=== PATIENT | male | born 1950 | race Caucasian/White ===

== ENCOUNTER → 2017-07-28 08:21 | Outpatient (CLI) | payer BC, MEDICARE, SELFPAY ==
[2017-07-28 10:17] LABS: Absolute Lymphocyte Count 2.39 X10^3/ul (0.83-4.51); Absolute Neutrophil Count 2.7 X10^3/uL (2.0-7.7); Basophil# 0.02 X10^3/uL; Basophil% 0.3 % (0-1); Eosinophil# 0.26 X10^3/uL; Eosinophils% 4.3 % (0-5); Hematocrit 42.8 % (40-54); Hemoglobin 14.4 g/dl (13.0-16.5); Lymphocyte # 2.39 X10^3/ul (4.0); Mean Corp Hgb Conc 33.6 g/gl (32-36); Mean Corpuscular Hgb 29.8 pg (27.0-32.0); Mean Corpuscular Volume 88.4 fL (80-94); Mean Platelet Vol. 10.3 fl (6.2-12.0); Monocyte# 0.57 X10^3/uL; Monocyte% 9.5 % (0-10); Neutrophil # 2.73 X10^3/uL (2.7-7.7); Neutrophil % 45.7 % (47-70); Platelet Count 233 K/mm3 (150-450); RBC Distribution Width CV 13.1 % (11.6-14.6); RBC Distribution Width SD 42.1 fl (35.1-43.9); Red Blood Count 4.84 M/mm3 (4.6-6.2)
[2017-07-28 10:23] LABS: POSITIVE COUNT NO; POSITIVE DIFFERENTIAL NO; POSITIVE MORPHOLOGY NO
[2017-07-28 10:42] LABS: AST(SGOT) 27 U/L (15-37); Alanine Aminotransfer ALT/SGPT 38 U/L (16-61); Albumin, Serum 3.7 g/dL (3.2-5.0); Alkaline Phosphatase 131 U/L (45-117); Anion Gap 9 (5-15); BUN 22 mg/dL (7-18); BUN/Creat Ratio 15.4 RATIO (10-20); Bilirubin, Direct 0.07 mg/dL (0.00-0.30); Calcium,Total 8.4 mg/dL (8.5-10.1); Chloride 101 mmol/L (98-107); Cholesterol 195 mg/dL (200); Creatinine, Serum 1.43 mg/dL (0.70-1.30); EST Glomerular Filtration Rate 53 mL/min (>60); Est Glom Filt Rate - Afr Amer 64 mL/min (>60); Globulin 4.1 g/dL (2.2-4.2); Glucose 303 mg/dL (74-106); High Density Lipoprotein 33 mg/dL; Protein, Total 7.8 g/dL (6.4-8.2); Sodium Level 137 mmol/L (136-145); Triglycerides 509 mg/dL
[2017-07-28 10:59] LABS: Microalbumin,Random Urine 57.8 mg/L (NO RANGE EST.); Microalbumin:Creatinine Ratio 108.2 mg/g CRE (<30 mg/g CRE)
[2017-07-28 11:00] LABS: Hemoglobin A1c 8.1 % (4.2-6.3)
== END ==
PROVIDERS: Family Provider Family Medicine; PCP Family Medicine; Visit Provider Family Medicine
DX: I10 Essential (primary) hypertension (principal); E11.9 Type 2 diabetes mellitus without complications; Z94.4 Liver transplant status
CPT/HCPCS: 36415; 80048; 80061; 80076; 82043; 82570; 83036; 85025

== ENCOUNTER → 2017-07-30 09:17 | Outpatient (CLI) | payer BC, MEDICARE, SELFPAY ==
--- NOTE | 2017-07-30 09:22 | RAD_ITS ---
STUDY: X-RAY CHEST REASON FOR EXAM: Male, 66 years old. History of prior liver transplant. TECHNIQUE: PA and lateral views of the chest. COMPARISON: None. FINDINGS: Gynecomastia. The lungs are clear and expanded. Scattered calcified granuloma. There is no demonstrated pleural abnormality. Normal size heart. Normal mediastinum and anil. Normal visualized pulmonary arteries. There is atherosclerotic calcification of the aortic arch with tortuosity. There are degenerative changes of the visualized thoracic spine. Normal visualized ribs, clavicles, and shoulders. There is no demonstrated abnormality of the visualized soft tissue structures of the upper abdomen. RAD/Chest PA and Lateral IMPRESSION: No acute abnormality is seen. Electronically Signed: Kevin Gonzalez MD at 12:59 EDT Tel [phone], Service support ,
== END ==
PROVIDERS: Family Provider Family Medicine; PCP Family Medicine; Visit Provider Family Medicine
DX: Z94.4 Liver transplant status (principal)
CPT/HCPCS: 71046

== ENCOUNTER → 2018-02-01 08:48 | Outpatient (CLI) | payer MEDICARE, SELFPAY ==
[2018-02-01 10:48] LABS: Hemoglobin A1c 8.4 % (4.2-6.3)
[2018-02-01 10:58] LABS: Microalbumin:Creatinine Ratio 142.7 mg/g CRE (<30 mg/g CRE)
[2018-02-01 11:00] LABS: AST(SGOT) 35 U/L (15-37); Alanine Aminotransfer ALT/SGPT 51 U/L (16-61); Albumin, Serum 3.6 g/dL (3.2-5.0); Alkaline Phosphatase 110 U/L (45-117); Anion Gap 10 (5-15); BUN 21 mg/dL (7-18); BUN/Creat Ratio 14.7 RATIO (10-20); Bilirubin, Direct 0.08 mg/dL (0.00-0.30); Calcium,Total 8.2 mg/dL (8.5-10.1); Chloride 104 mmol/L (98-107); Cholesterol 167 mg/dL (200); Creatinine, Serum 1.43 mg/dL (0.70-1.30); EST Glomerular Filtration Rate 53 mL/min (>60); Est Glom Filt Rate - Afr Amer 64 mL/min (>60); Globulin 3.8 g/dL (2.2-4.2); Glucose 290 mg/dL (74-106); High Density Lipoprotein 33 mg/dL; Potassium 4.9 mmol/L (3.5-5.1); Protein, Total 7.4 g/dL (6.4-8.2); Sodium Level 138 mmol/L (136-145); Triglycerides 470 mg/dL
--- OUTSIDE RECORDS SUMMARY | 2018-03-27 10:59 | XMS RPT_ITS ---
:1950 Author Organization [facility] Care Team Providers Name Role Phone VICKY CARBAJAL (HOME MORTGAGE DISCLOSURE ACT SPECIALIST) Attending Unavailable BORIS HERNANDEZ Referring Unavailable NAYE OMER, DR. REMY Mcneil Primary Care Unavailable NAYE OMER, DR. 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 Community / Z94.4(ICD-10) Hospital Repository 08/13/2017 Unknown I10 - Essential Remy Mallory (primary) Community hypertension / Hospital I10(ICD-10) Repository PROCEDURES PROCEDURES No Procedure Records FoundRESULTS RESULTS HEMOGLOBIN A1C Collected: 02/01/2018 Status: F Source: [place] 8:55 AM [facility] REPOSITORY TYPE CODE TESTS RESULT OUT OF RANGE REFERENCE UNITS LAB L501.9985 4.2-6.3 % High HGB A1C 8.4 Performed By: #### L501.9985 #### [facility] [address] [place], [address] MICROALB:CREAT Collected: 02/01/2018 Status: F Source: GIO RATIO,RANDOM UR 8:55 AM [facility] REPOSITORY TYPE CODE TESTS RESULT OUT OF RANGE REFERENCE UNITS LAB L501.1200 NO RANGE EST. mg/dL Normal UR CREAT 75.70 LAB L502.0500 NO RANGE EST. mg/L Normal 108.0 MICROALBUMIN ,UR LAB L502.0600 <30 mg/g CRE mg/g CRE High 142.7 MALB:CREAT Performed By: #### L502.0250 #### [facility] [address] [place], [address] BASIC METABOLIC Collected: 02/01/2018 Status: F Source: GIO PROFILE (BMP) 8:55 AM [facility] REPOSITORY TYPE CODE TESTS RESULT OUT OF RANGE REFERENCE UNITS LAB L501.0100 74-106 mg/dL High GLU 290 Result Comment: Glucose result greater than or equal to 200 mg/dL suggests DIABETES MELLITUS per A.D.A. criteria. Please note revised GLUCOSE reference range effective 2017. LAB L501.1000 7-18 mg/dL High BUN 21 LAB L501.1100 0.70-1.30 mg/dL High CREAT,SERUM 1.43 Result Comment: The validity of the calculated GFR AND GFRAA in patients over 70 years has not been determined. Clinical correlation is essential. LAB L501.1110 >60 mL/min Low EST GFR 53 Result Comment: Non- GFR Calc LAB L501.1115 >60 mL/min Normal EST GFR - AA 64 Result Comment: GFR Calc LAB L501.1300 10-20 RATIO Normal BUN/CRE 14.7 LAB L501.2200 8.5-10.1 mg/dL Low CA 8.2 LAB L501.5300 136-145 mmol/L NA Normal 138 LAB L501.5600 3.5-5.1 mmol/L K Normal 4.9 LAB L501.5900 98-107 mmol/L CL Normal 104 LAB L501.6100 21.0-32.0 mmol/L Normal CO2 24.0 LAB L501.6200 5-15 Normal GAP 10 Performed By: #### L500.2500, L500.3400, L500.4100 #### [facility] [address] [place], [place], [address] LIVER PROFILE Collected: 02/01/2018 Status: F Source: [place] 8:55 AM [facility] REPOSITORY TYPE CODE TESTS RESULT OUT OF RANGE REFERENCE UNITS LAB L501.1500 6.4-8.2 g/dL Normal T PROT 7.4 LAB L501.1800 3.2-5.0 g/dL Normal ALB 3.6 LAB L501.1950 2.2-4.2 g/dL Normal GLOB 3.8 LAB L501.4100 15-37 U/L Normal AST 35 LAB L501.4305 45-117 U/L Normal ALK P 110 LAB L501.4405 16-61 U/L Normal ALT 51 LAB L501.4600 0.20-1.00 mg/dL Normal T BILI 0.30 LAB L501.4700 0.00-0.30 mg/dL Normal D BILI 0.08 Performed By: #### L500.2500, L500.3400, L500.4100 #### [facility] [address] [facility] [place], [address] LIPID PROFILE Collected: 02/01/2018 Status: F Source: [place] 8:55 AM [facility] REPOSITORY TYPE CODE TESTS RESULT OUT OF RANGE REFERENCE UNITS LAB L501.4900 200 mg/dL Normal CHOL 167 Result Comment: <200 mg/dL Desirable 200-240 mg/dL Borderline >240 mg/dL High Risk LAB L501.5000 mg/dL High TRIG 470 Result Comment: The drugs N-Acetylcysteine and Metamizole may falsely depress this assay. TRIGLYCERIDE IS GREATER THAN 400 mg/dL. LDL RESULT IS INVALID AND WILL NOT BE REPORTED. Serum Triglycerides Reference Interval Normal <150 mg/dL Borderline high 150 - 199 mg/dL High 200 - 499 mg/dL Very High > or = 500 mg/dL LAB L501.6400 mg/dL Low HDL 33 Result Comment: The drugs N-Acetylcysteine and Metamizole may falsely depress this assay. Reference Range HDL <40 mg/dL Low HDL Cholesterol HDL >or= 60 mg/dL High HDL Cholesterol LAB L501.6500 0-130 mg/dL Test Normal not performed LDL LAB L501.6600 5-40 mg/dL Test Normal not performed VLDL Performed By: #### L500.2500, L500.3400, L500.4100 #### [facility] [address] [place], [address] PROGRESS Observed: 2017 Status: COMPLETED Source: [place] 11:01 AM [facility] REPOSITORY HNO ID: [id number] Author: Paris Mitchell [facility] Service: (none) Author Type: (none) Type: Progress Notes Filed: 2017 11:02 AM Note Text: I spoke with Alice and he states he doesn't see Dr. Hernandez anymore. Removed Dr. Hernandez as PCP. PROGRESS Observed: 2017 Status: COMPLETED Source: [place] 10:58 AM [facility] REPOSITORY HNO ID: [id number] Author: Paris Mitchell [facility] Service: (none) Author Type: (none) Type: Progress Notes Filed: 2017 11:02 AM Note Text: PHMA TEAMLET DOCUMENTATION Provider Action/FYI: PSR Action/FYI: R/s appointment from 09/17/17 with labs prior - appointment cancellation note states service elsewhere. Patient may not be seeing Dr. Hernandez anymore. Teamlet has identified patient by name and date of . Team: Dr. Oj Perry Older Paris Montejo ? Last Office Visit:Visit date not found ? Next Office Visit: Visit date not found ? Last BP/Labs: Blood Pressure: Last 3 Encounter BP Readings: Date: BP: 03/26/2017 140/88 10/23/2016 142/80 09/19/2016 145/82 Lipids: Cholesterol, Total (mg/dL) Date Value 09/18/2016 183 HDL Cholesterol (mg/dL) Date Value 09/18/2016 35 LDL Cholesterol (mg/dL) Date Value 09/18/2016 78 LDL Chol, Amberson (mg/dL) Date Value 11/23/2009 49 Triglyceride (mg/dL) Date Value 09/18/2016 349 HGB A1C: Lab Results Component Value Date HBA1C 7.8 09/18/2016 HBA1C 5.9 04/02/2010 HBA1C 6.9 11/23/2009 HBA1C 7.5 12/01/2007 TSH: No results found for: TSH) Care Gap: CKD DM HTN - Last BP NOT under 140/90 Plan: ? Confirm PCP / Status - active ? Type of appointment needed: Follow-up HTN, DM next available with Provider pcp or palliative senior np ? Consultation Appointments: n/a Labs, HM and Immunization: Health Maintenance Due: BP CONTROLLED (<130/80) due on 1970 DTAP,TDAP,TD(1 - Tdap) due on 12/16/1971 COLORECTAL CANCER SCREENING,SEE MODIFIER due on 09/27/2012 HBA1C due on 03/21/2017 - ordered URINE ALBUMIN:CREATININE RATIO due on 09/18/2017 - ordered LDL CHOLESTEROL due on 09/18/2017 - ordered SERUM CREATININE due on 10/24/2017 - ordered INFLUENZA(1) due on 10/31/2017 ADULT PREVNAR-13 due on 2017 PNEUMOVAX AGE 65 AND OVER WITH 5YR LOOKBACK(1) due on 2017 Paris Mitchell Cma CNPTOUTREACH Observed: 2017 Status: COMPLETED Source: [place] 12:00 AM [facility] REPOSITORY Patient Outreach ([facility]) ALICE COHN ([id number]) 1950 M Date Time Provider Department 12/15/17 PARIS MITCHELL) [facility] During your visit today, we recorded the following information about you: Paris Mitchell Cma 2017 11:02 AM Signed PHMA TEAMLET DOCUMENTATION Provider Action/FYI: PSR Action/FYI: R/s appointment from 09/17/17 with labs prior - appointment cancellation note states service elsewhere. Patient may not be seeing Dr. Hernandez anymore. Teamlet has identified patient by name and date of . Team: Dr. Oj Perry Older Paris Montejo ? Last Office Visit:Visit date not found ? Next Office Visit: Visit date not found ? Last BP/Labs: Blood Pressure: Last 3 Encounter BP Readings: Date: BP: 03/26/2017 140/88 10/23/2016 142/80 09/19/2016 145/82 Lipids: Cholesterol, Total (mg/dL) Date Value 09/18/2016 183 HDL Cholesterol (mg/dL) Date Value 09/18/2016 35 LDL Cholesterol (mg/dL) Date Value 09/18/2016 78 LDL Chol, Gio (mg/dL) Date Value 11/23/2009 49 Triglyceride (mg/dL) Date Value 09/18/2016 349 HGB A1C: Lab Results Component Value Date HBA1C 7.8 09/18/2016 HBA1C 5.9 04/02/2010 HBA1C 6.9 11/23/2009 HBA1C 7.5 12/01/2007 TSH: No results found for: TSH) Care Gap: CKD DM HTN - Last BP NOT under 140/90 Plan: ? Confirm PCP / Status - active ? Type of appointment needed: Follow-up HTN, DM next available with Provider pcp or palliative senior np ? Consultation Appointments: n/a Labs, HM and Immunization: Health Maintenance Due: BP CONTROLLED (<130/80) due on 1970 DTAP,TDAP,TD(1 - Tdap) due on 12/16/1971 COLORECTAL CANCER SCREENING,SEE MODIFIER due on 09/27/2012 HBA1C due on 03/21/2017 - ordered URINE ALBUMIN:CREATININE RATIO due on 09/18/2017 - ordered LDL CHOLESTEROL due on 09/18/2017 - ordered SERUM CREATININE due on 10/24/2017 - ordered INFLUENZA(1) due on 10/31/2017 ADULT PREVNAR-13 due on 2017 PNEUMOVAX AGE 65 AND OVER WITH 5YR LOOKBACK(1) due on 2017 Paris Mitchell Tubing Assembler Paris Mitchell Tubing Assembler 2017 11:02 AM Signed I spoke with Alice and he states he doesn't see Dr. Hernandez anymore. Removed Dr. Hernandez as PCP. Allergies As of Date: 2017 (No Known Allergies) Date Reviewed: 03/26/2017 Reviewed by: Jenny Fernandez Tubing Assembler - Fully Assessed Reason for Visit: PHMA/Care Gap Outreach [[id number]] Prescriptions as of 2017 Sig: EASY TOUCH 31 GAUGE X 5/16 N* USE ONE NEEDLE FOR EACH DOSE INSULIN GLARGINE (U-100) 100 * Inject 70 Units subcutaneousl* INSULIN ASPART U-100 100 UNI* Inject 25-30 Units subcutaneo* TACROLIMUS 1 MG CAPSULE Take 1 tablet by mouth every * BLOOD SUGAR DIAGNOSTIC STRIPS Test blood sugar(s) 4x daily.* AMLODIPINE 2.5 MG TABLET Take 1 tablet by mouth once d* KETOCONAZOLE 2 % SHAMPOO Apply 1 application to affect* MAGNESIUM 250 MG TABLET 4 tablets daily CALCIUM 500 MG TABLET 1000 mg tablets twice a day. CHOLECALCIFEROL (VITAMIN D3) * Take one(1) tablet daily. CYANOCOBALAMIN (VIT B-12) 1,0* Take one(1) tablet daily. THERAPEUTIC MULTIVITAMIN TABL* Take one(1) tablet daily. 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] INVALID FOR*10/23/2016 Solar Lentigines [L81.4] INVALID FOR*10/23/2016 Trauma-related and Surgical Scars [L90.5] INVALID FOR*10/23/2016 Seborrheic Keratosis [L82.1] INVALID FOR* Skin Tag Papilloma [L91.8] INVALID FOR*10/23/2016 Actinic Damage//Sun-Damaged Skin: moderate [L57*INVALID FOR* BCC: Basal Cell Carcinoma: Skin Cancer R nose-f*INVALID FOR*10/23/2016 Essential hypertension [I10] INVALID FOR* Encounter Status:Closed by PARIS MITCHELL CMA on 12/15/17 JODI Observed: 09/01/2017 Status: COMPLETED Source: [place] 12:00 AM [facility] REPOSITORY Patient Outreach ([facility]) ALICE COHN ([id number]) 1950 M Date Time Provider Department 09/01/17 [facility] During your visit today, we recorded the following information about you: Allergies As of Date: 09/01/2017 (No Known Allergies) Date Reviewed: 03/26/2017 Reviewed by: Jenny Fernandez [facility] - Fully Assessed Visit Diagnosis:Medication management [Z79.899] Order(s):BASIC METABOLIC PNL [SQBMP] Order #: [id number] FUTURE ALBUMIN/CREAT RATIO RND UR [SQUACR] Order #: [id number] FUTURE LIPID PANEL BASIC [SQLIPB] Order #: [id number] FUTURE Prescriptions as of 09/01/2017 Sig: EASY TOUCH 31 GAUGE X 5/16 N* USE ONE NEEDLE FOR EACH DOSE INSULIN GLARGINE (U-100) 100 * Inject 70 Units subcutaneousl* INSULIN ASPART U-100 100 UNI* Inject 25-30 Units subcutaneo* TACROLIMUS 1 MG CAPSULE Take 1 tablet by mouth every * BLOOD SUGAR DIAGNOSTIC STRIPS Test blood sugar(s) 4x daily.* AMLODIPINE 2.5 MG TABLET Take 1 tablet by mouth once d* KETOCONAZOLE 2 % SHAMPOO Apply 1 application to affect* MAGNESIUM 250 MG TABLET 4 tablets daily CALCIUM 500 MG TABLET 1000 mg tablets twice a day. CHOLECALCIFEROL (VITAMIN D3) * Take one(1) tablet daily. CYANOCOBALAMIN (VIT B-12) 1,0* Take one(1) tablet daily. THERAPEUTIC MULTIVITAMIN TABL* Take one(1) tablet daily. 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] INVALID FOR*10/23/2016 Solar Lentigines [L81.4] INVALID FOR*10/23/2016 Trauma-related and Surgical Scars [L90.5] INVALID FOR*10/23/2016 Seborrheic Keratosis [L82.1] INVALID FOR* Skin Tag Papilloma [L91.8] INVALID FOR*10/23/2016 Actinic Damage//Sun-Damaged Skin: moderate [L57*INVALID FOR* BCC: Basal Cell Carcinoma: Skin Cancer R nose-f*INVALID FOR*10/23/2016 Essential hypertension [I10] INVALID FOR* Encounter Status:Closed by CARMEN, PRODUSER on 12/11/17 US ABDOMEN/ABDOMEN DOPPLER Observed: 08/13/2017 Status: F Source: [place] 8:00 AM [facility] REPOSITORY ORIGINAL US ABDOMEN/ABDOMEN DOPPLER CLINICAL INDICATION:HX LIVER TRANSPLANT COMPARISON: None TECHNIQUE: Abel scale, color doppler and spectral wave analysis was performed of the liver. FINDINGS: The liver is normal in size and echogenicity. No focal lesions are seen. There is no intra or extrahepatic bile duct dilatation. The common duct is 9 mm at the allyson hepatis. The gallbladder is been surgically removed. The visualized pancreas is normal in size and echogenicity. No ascites is seen in the Adams's pouch. The kidneys do not demonstrate pelvocaliectasis. There is an anechoic structure within the cortex of the LEFT kidney which measures 1.4 x 2.1 x 1.3 cm, likely representing a simple cyst. VASCULAR: SV: Patent MPV: Patent, normal direction of flow RPV: Patent, normal directional flow LPV: Patent, normal directional flow SNOW: Patent, normal directional flow RHV: Patent with normal waveforms MHV: Patent with normal waveforms LHV: Patent with normal waveforms IMPRESSION: 1. Normal ultrasound and Doppler imaging findings of a transplanted liver. Interpreted By: Kallie Tavarez MD Preliminary Report By: Kallie Tavarez MD Electronically Signed By: Kallie Tavarez MD Dictated Date: 08/13/2017 10:16:25 AM Prelim Date: 08/13/2017 10:16:25 AM Sign Date: 08/13/2017 11:42:02 AM CHEST PA AND LATERAL Observed: 07/30/2017 Status: F Source: GIO 9:22 AM [facility] REPOSITORY [facility] Imaging Services [address] [place] [address] Chest PA and Lateral MR#: [id number] Acct: [id number] Name: ALICE COHN Rep #: [id number] : 1950 M 66 From: Kevin Gonzalez MD PCP: Remy Mallory MD Status: REG CLI Study: Chest PA and Lateral Date of Exam: 07/30/17 Exam# [id number] Ordering Dr: Remy Mallory MD STUDY: X-RAY CHEST REASON FOR EXAM: Male, 66 years old. History of prior liver transplant. TECHNIQUE: PA and lateral views of the chest. COMPARISON: None. FINDINGS: Gynecomastia. The lungs are clear and expanded. Scattered calcified granuloma. There is no demonstrated pleural abnormality. Normal size heart. Normal mediastinum and anil. Normal visualized pulmonary arteries. There is atherosclerotic calcification of the aortic arch with tortuosity. There are degenerative changes of the visualized thoracic spine. Normal visualized ribs, clavicles, and shoulders. There is no demonstrated abnormality of the visualized soft tissue structures of the upper abdomen. RAD/Chest PA and Lateral IMPRESSION: No acute abnormality is seen. Electronically Signed: Kevin Gonzalez MD at 12:59 EDT Tel [phone], Service support , CC: Remy Mallory MD Bar Welder: Signed CBC W/DIFF, AUTOMATED Collected: 07/28/2017 Status: F Source: GIO 8:35 AM [facility] REPOSITORY TYPE CODE TESTS RESULT OUT OF RANGE REFERENCE UNITS LAB L100.1000 4.4-11.0 K/mm3 Normal WBC 6.0 LAB L100.1200 4.6-6.2 M/mm3 Normal RBC 4.84 LAB L100.1300 13.0-16.5 g/dl Normal HGB 14.4 LAB L100.1400 40-54 % Normal HCT 42.8 LAB L100.1500 80-94 fL Normal MCV 88.4 LAB L100.1600 27.0-32.0 pg Normal MCH 29.8 LAB L100.1700 32-36 g/gl Normal MCHC 33.6 LAB L100.1810 11.6-14.6 % Normal RDW CV 13.1 LAB L100.1820 35.1-43.9 fl Normal RDW SD 42.1 LAB L100.1900 150-450 K/mm3 Normal PLT 233 LAB L100.2000 6.2-12.0 fl Normal MPV 10.3 LAB L100.2100 47-70 % Low NEUT% 45.7 LAB L100.2200 19-41 % Normal LY% 40.0 LAB L100.2300 0-10 % Normal MONO% 9.5 LAB L100.2400 0-5 % Normal EO% 4.3 LAB L100.2500 0-1 % Normal BASO% 0.3 LAB L100.2550 0.0-0.9 % Normal IM GRAN % 0.200 Result Comment: IG% - Immature Granulocytes (promyelocytes, myelocytes and metamyelocytes) > 1% indicates that a LEFT SHIFT is Present. LAB L100.2620 2.0-7.7 X10 3/uL Normal Absolute Neut 2.7 LAB L100.2720 0.83-4.51 X10 3/ul Normal Absolute Lymph 2.39 Performed By: #### L100.0100 #### [facility] [address] [place], [place], [address] BASIC METABOLIC Collected: 07/28/2017 Status: F Source: GIO PROFILE ([facility]) 8:35 AM [facility] REPOSITORY TYPE CODE TESTS RESULT OUT OF RANGE REFERENCE UNITS LAB L501.0100 74-106 mg/dL High GLU 303 Result Comment: Glucose result greater than or equal to 200 mg/dL suggests DIABETES MELLITUS per A.D.A. criteria. Please note revised GLUCOSE reference range effective 2017. LAB L501.1000 7-18 mg/dL High BUN 22 LAB L501.1100 0.70-1.30 mg/dL High CREAT,SERUM 1.43 Result Comment: The validity of the calculated GFR AND GFRAA in patients over 70 years has not been determined. Clinical correlation is essential. LAB L501.1110 >60 mL/min Low EST GFR 53 Result Comment: Non- GFR Calc LAB L501.1115 >60 mL/min Normal EST GFR - AA 64 Result Comment: GFR Calc LAB L501.1300 10-20 RATIO Normal BUN/CRE 15.4 LAB L501.2200 8.5-10.1 mg/dL Low CA 8.4 LAB L501.5300 136-145 mmol/L NA Normal 137 LAB L501.5600 3.5-5.1 mmol/L K Normal 5.0 LAB L501.5900 98-107 mmol/L CL Normal 101 LAB L501.6100 21.0-32.0 mmol/L Normal CO2 27.0 LAB L501.6200 5-15 Normal GAP 9 Performed By: #### L500.2500, L500.3400, L500.4100 #### [facility] [address] [place], [place], [address] LIVER PROFILE Collected: 07/28/2017 Status: F Source: [place] 8:35 AM [facility] REPOSITORY TYPE CODE TESTS RESULT OUT OF RANGE REFERENCE UNITS LAB L501.1500 6.4-8.2 g/dL Normal T PROT 7.8 LAB L501.1800 3.2-5.0 g/dL Normal ALB 3.7 LAB L501.1950 2.2-4.2 g/dL Normal GLOB 4.1 LAB L501.4100 15-37 U/L Normal AST 27 LAB L501.4305 45-117 U/L High ALK P 131 LAB L501.4405 16-61 U/L Normal ALT 38 LAB L501.4600 0.20-1.00 mg/dL Normal T BILI 0.30 LAB L501.4700 0.00-0.30 mg/dL Normal D BILI 0.07 Performed By: #### L500.2500, L500.3400, L500.4100 #### [facility] [address] [place], [place], [id number] LIPID PROFILE Collected: 07/28/2017 Status: F Source: [place] 8:35 AM [facility] REPOSITORY TYPE CODE TESTS RESULT OUT OF RANGE REFERENCE UNITS LAB L501.4900 200 mg/dL Normal CHOL 195 Result Comment: <200 mg/dL Desirable 200-240 mg/dL Borderline >240 mg/dL High Risk LAB L501.5000 mg/dL High TRIG 509 Result Comment: The drugs N-Acetylcysteine and Metamizole may falsely depress this assay. TRIGLYCERIDE IS GREATER THAN 400 mg/dL. LDL RESULT IS INVALID AND WILL NOT BE REPORTED. Serum Triglycerides Reference Interval Normal <150 mg/dL Borderline high 150 - 199 mg/dL High 200 - 499 mg/dL Very High > or = 500 mg/dL LAB L501.6400 mg/dL Low HDL 33 Result Comment: The drugs N-Acetylcysteine and Metamizole may falsely depress this assay. Reference Range HDL <40 mg/dL Low HDL Cholesterol HDL >or= 60 mg/dL High HDL Cholesterol LAB L501.6500 0-130 mg/dL Test Normal not performed LDL LAB L501.6600 5-40 mg/dL Test Normal not performed VLDL Performed By: #### L500.2500, L500.3400, L500.4100 #### [facility] [address] [place], [place], [id number] MICROALB:CREAT Collected: 07/28/2017 Status: F Source: GIO RATIO,RANDOM UR 8:35 AM [facility] REPOSITORY TYPE CODE TESTS RESULT OUT OF RANGE REFERENCE UNITS LAB L501.1200 NO RANGE EST. mg/dL Normal UR CREAT 53.40 LAB L502.0500 NO RANGE EST. mg/L Normal 57.8 MICROALBUMIN ,UR LAB L502.0600 <30 mg/g CRE mg/g CRE High 108.2 MALB:CREAT Performed By: #### L502.0250 #### [facility] [address] [place], [address] HEMOGLOBIN A1C Collected: 07/28/2017 Status: F Source: [place] 8:35 AM [facility] REPOSITORY TYPE CODE TESTS RESULT OUT OF RANGE REFERENCE UNITS LAB L501.9985 4.2-6.3 % High HGB A1C 8.1 Performed By: #### L501.9985 #### [facility] [address] [place], [address] PROGRESS Observed: 03/26/2017 Status: COMPLETED Source: [place] 10:59 AM [facility] REPOSITORY HNO ID: [id number] Author: Vicky Rousseau) Older Service: (none) Author Type: Nurse Practitioner Type: Progress Notes Filed: 03/26/2017 10:59 AM Note Text: CC: Patient presents with: Imm/Inj: Flu Vaccine HPI Alice Cohn is a 66 year old male who presents today for 3 month follow up and medication refills. DIABETES MELLITUS: Mr. Cohn was last seen 09/2016. Since our last visit he denies excessive thirst or increased frequency of urination, chest pain or dyspnea , numbness, tingling or pain in extremities, new or unusual visual symptoms, low sugar/hypoglycemic reactions, weight loss/gain, lightheadedness/dizziness and bowel changes/loose stools. Patient admits to have low sugar/hypoglycemic reactions once about a month ago. Follows a diabetic diet some of the time. He is compliant with medication(s) and is tolerating med(s) without any side effects. He reports checking his glucose on a four times a day schedule with sugars in the 160-170 <200 range. 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 HTN: Mr. Cohn indicates that he is feeling well and denies any symptoms referable to elevated blood pressure. Specifically denies headache, chest pain, palpitations, dyspnea and peripheral edema. Patient denies any side effects of his medication(s) and is compliant with their regimen. He does not check BP's generally. Alice likes to exercise by walking daily. He watches his diet for sodium, low fat and low cholesterol some of the time. Last 3 Encounter BP Readings: Date: BP: 03/26/2017 150/100 10/23/2016 142/80 09/19/2016 145/82 REVIEW OF SYSTEMS General: no fevers, no chills, no night sweats, no recurrent infections, no change in appetite, no change in energy and no significant changes in weight HEENT: no frequent or significant headaches, no changes in hearing, no visual changes, no nose bleeds, no sinus or nasal problems Respiratory: no cough, no wheezing, no shortness of breath, no hemoptysis Cardiovascular: no chest pain, no chest pressure, no palpitations and no swelling GI: No nausea, vomiting, or diarrhea Neurologic: No headache, weakness, numbness, tingling, neck stiffness, tremor, vertigo, dizziness, memory loss, syncope. PHYSICAL EXAM BP 150/100 Pulse 73 Temp 36.4 ?C (97.6 ?F) (Temporal Artery) Resp 14 Wt 94.3 kg (207 lb 12.8 oz) SpO2 96% BMI 31.6 kg/m2 General Appearance: well appearing, in no acute distress, alert Pysch: mood and affect broad and appropriate Skin: Skin color, texture, turgor normal for age; No rashes or lesions. Healing abrasion noted to left patrick without signs of infection. Head: normocephalic, atraumatic Eyes: PERRLA, conjunctiva pink and moist, no icterus, sclera white, non-injected Neck: Thyroid normal size and symmetric without palpable nodules, No adenopathy Lungs: Lungs clear to auscultation. No wheezing, rhonchi, rales Heart: RRR without murmur, gallop, or rubs. No ectopy Abdomen: Abdomen soft, non-tender. Bowel sounds normal. No masses, organomegaly Extremities: No deformities, edema, skin discoloration, clubbing or cyanosis. Good capillary refill. DM foot exam: shoes and socks removed, No deformities, ulcers, calluses and sensitive to 10 gm monofilament ADULT PREVNAR-13 due on 12/16/1971 DIABETIC FOOT EXAM due on 08/30/2010 COLORECTAL CANCER SCREENING,SEE MODIFIER due on 09/27/2012 TETANUS due on 03/02/2015 INFLUENZA(1) due on 10/31/2016 HBA1C due on 03/21/2017 URINE ALBUMIN CREATININE RATIO due on 09/18/2017 LDL due on 09/18/2017 DILATED RETINAL EXAM due on 03/03/2018 PROSTATE CANCER SCREENING DISCUSSION Completed HEPATITIS C SCREENING Completed ASSESSMENT/PLAN: 1. 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 - BP goal of <140/90 - HGB A1C 2. Essential hypertension - ICD9: 401.9, ICD10: I10 - good control - Continue current medication(s) - Encouraged dietary sodium restriction/DASH diet - Recommended regular aerobic exercise. - Follow up in 3 months, sooner should new symptoms or problems arise. - Goal of BP <140/90 3. Liver replaced by transplant (HCC) - ICD9: V42.7, ICD10: Z94.4 - Patient establishing care with GI specialist - Maintenance lab work and diagnostic screening up to date - TACROLIMUS 1 MG CAPSULE 4. 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 Potential red flag symptoms discussed with the patient. Reviewed appropriate action plan to take if red flag symptoms occur. Patient agreeable to treatment plan. PROGRESS Observed: 03/26/2017 Status: COMPLETED Source: [place] 8:27 AM [facility] REPOSITORY HNO ID: [id number] Author: Nate Rousseau) Rc Service: (none) Author Type: Nurse Practitioner Type: Progress Notes Filed: 03/26/2017 10:59 AM Note Text: CC: Patient presents with: Imm/Inj: Flu Vaccine HPI Alice Cohn is a 66 year old male who presents today for 3 month follow up and medication refills. DIABETES MELLITUS: Mr. Cohn was last seen 09/2016. Since our last visit he denies excessive thirst or increased frequency of urination, chest pain or dyspnea , numbness, tingling or pain in extremities, new or unusual visual symptoms, low sugar/hypoglycemic reactions, weight loss/gain, lightheadedness/dizziness and bowel changes/loose stools. Patient admits to have low sugar/hypoglycemic reactions once about a month ago. Follows a diabetic diet some of the time. He is compliant with medication(s) and is tolerating med(s) without any side effects. He reports checking his glucose on a four times a day schedule with sugars in the 160-170 <200 range. 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 HTN: Mr. Cohn indicates that he is feeling well and denies any symptoms referable to elevated blood pressure. Specifically denies headache, chest pain, palpitations, dyspnea and peripheral edema. Patient denies any side effects of his medication(s) and is compliant with their regimen. He does not check BP's generally. Alice likes to exercise by walking daily. He watches his diet for sodium, low fat and low cholesterol some of the time. Last 3 Encounter BP Readings: Date: BP: 03/26/2017 150/100 10/23/2016 142/80 09/19/2016 145/82 REVIEW OF SYSTEMS General: no fevers, no chills, no night sweats, no recurrent infections, no change in appetite, no change in energy and no significant changes in weight HEENT: no frequent or significant headaches, no changes in hearing, no visual changes, no nose bleeds, no sinus or nasal problems Respiratory: no cough, no wheezing, no shortness of breath, no hemoptysis Cardiovascular: no chest pain, no chest pressure, no palpitations and no swelling GI: No nausea, vomiting, or diarrhea Neurologic: No headache, weakness, numbness, tingling, neck stiffness, tremor, vertigo, dizziness, memory loss, syncope. PAST MEDICAL HISTORY Diagnosis Date - ANXIETY STATE NOS 12/01/2007 - BCC: Basal Cell Carcinoma: Skin Cancer R nose-face 01/26/2010 - Chronic hepatitis C without mention of hepatic coma 03/02/1989 IF,Rib x 3 in the past. s/p Harvoni 2014 - Chronic tension headaches 08/30/2009 - Cirrhosis of liver without mention of alcohol 03/02/1989 - CKD (chronic kidney disease) 08/30/2009 Dr. Robertson. - Colon polyp 09/28/2007 - Osteopenia 08/30/2009 - Personal history of colonic polyps 08/30/2009 - Type II or unspecified type diabetes mellitus without mention of complication, uncontrolled 03/02/2004 PAST SURGICAL HISTORY Procedure Laterality Date - APPENDECTOMY 1964 - COLONOSCOP W/ OR W/O [facility] SPEC August Colonoscopy - COLONOSCOPY 2013 no record from [place] - PAST SURGICAL HISTORY OF 1965 ORIF Mandibular fractures - TRANSPLANT LIVER ORTHOTOPIC 07/17/2005 Hepatitis C ALLERGIES Review of patient's allergies indicates no known allergies. MEDICATIONS tacrolimus (PROGRAF) 1 mg capsule Take 1 tablet by mouth every morning and take 1 tablet by mouth every evening amLODIPine (NORVASC) 2.5 mg tablet Take 1 tablet by mouth once daily. insulin aspart (NOVOLOG FLEXPEN) 100 unit/mL inpn Inject 25- 30 Units subcutaneously three times daily with meals. 10-12 units at bedtime for glucose >180. insulin glargine (LANTUS SOLOSTAR) 100 unit/mL (3 mL) inpn Inject 60 Units subcutaneously daily at bedtime. insulin needles, DISPOSABLE, (PEN NEEDLE) 31 gauge x 5/16 ndle USE ONE NEEDLE FOR EACH DOSE ketoconazole (NIZORAL) 2 % shampoo Apply 1 application to affected area twice a week. MAGNESIUM 250 MG TAB 4 tablets daily CALCIUM 500 MG TAB 1000 mg tablets twice a day. CHOLECALCIFEROL (VITAMIN D3) 400 UNIT TAB Take one(1) tablet daily. CYANOCOBALAMIN 1,000 MCG TAB Take one(1) tablet daily. THERAPEUTIC MULTIVITAMIN TAB Take one(1) tablet daily. blood sugar diagnostic (ONETOUCH ULTRA TEST) test strip Test blood sugars 4 times daily. 250.02 FAMILY HISTORY Problem Relation Age of Onset - Cancer Paternal Aunt - Diabetes Paternal Uncle - Cancer Mother skin cancer - None Father adopted - None Brother - None Brother - None Brother Social History Substance Use Topics - Smoking status: Former Smoker Packs/day: 1.50 Years: 10.00 Types: Cigarettes Quit date: 03/02/1989 - Smokeless tobacco: Never Used - Alcohol use No PHYSICAL EXAM BP 150/100 Pulse 73 Temp 36.4 ?C (97.6 ?F) (Temporal Artery) Resp 14 Wt 94.3 kg (207 lb 12.8 oz) SpO2 96% BMI 31.6 kg/m2 General Appearance: well appearing, in no acute distress, alert Pysch: mood and affect broad and appropriate Skin: Skin color, texture, turgor normal for age; No rashes or lesions. Healing abrasion noted to left patrick without signs of infection. Head: normocephalic, atraumatic Eyes: PERRLA, conjunctiva pink and moist, no icterus, sclera white, non-injected Neck: Thyroid normal size and symmetric without palpable nodules, No adenopathy Lungs: Lungs clear to auscultation. No wheezing, rhonchi, rales Heart: RRR without murmur, gallop, or rubs. No ectopy Abdomen: Abdomen soft, non-tender. Bowel sounds normal. No masses, organomegaly Extremities: No deformities, edema, skin discoloration, clubbing or cyanosis. Good capillary refill. DM foot exam: shoes and socks removed, No deformities, ulcers, calluses and sensitive to 10 gm monofilament ADULT PREVNAR-13 due on 12/16/1971 DIABETIC FOOT EXAM due on 08/30/2010 COLORECTAL CANCER SCREENING,SEE MODIFIER due on 09/27/2012 TETANUS due on 03/02/2015 INFLUENZA(1) due on 10/31/2016 HBA1C due on 03/21/2017 URINE ALBUMIN CREATININE RATIO due on 09/18/2017 LDL due on 09/18/2017 DILATED RETINAL EXAM due on 03/03/2018 PROSTATE CANCER SCREENING DISCUSSION Completed HEPATITIS C SCREENING Completed ASSESSMENT/PLAN: 1. 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 - BP goal of <140/90 - HGB A1C 2. Essential hypertension - ICD9: 401.9, ICD10: I10 - good control - Continue current medication(s) - Encouraged dietary sodium restriction/DASH diet - Recommended regular aerobic exercise. - Follow up in 3 months, sooner should new symptoms or problems arise. - Goal of BP <140/90 3. Liver replaced by transplant (HCC) - ICD9: V42.7, ICD10: Z94.4 - Patient establishing care with GI specialist - Maintenance lab work and diagnostic screening up to date - TACROLIMUS 1 MG CAPSULE 4. Need for vaccination - ICD9: V05.9, ICD10: Z23 - INFLUENZA VACCINE QUADRIVALENT AGE 3 YRS PLUS + IM Prescription instructions reviewed with patient as applicable. Potential red flag symptoms discussed with the patient. Reviewed appropriate action plan to take if red flag symptoms occur. Patient agreeable to treatment plan. Nate Tatum CNP PROGRESS Observed: 03/26/2017 Status: COMPLETED Source: [place] 8:23 AM [facility] REPOSITORY O ID: [id number] Author: Jenny Fernandez Cma Service: (none) Author Type: (none) Type: Progress Notes Filed: 03/26/2017 10:59 AM Note Text: 66 year old male here for INACTIVATED INFLUENZA VACCINE. [id number] Season Patient is identified by name and date of : Yes [] CONTRAINDICATIONS color enhanced section Age less than 6 months? No Allergy to eggs, chicken, chicken feathers, or chicken dander? No Allergy to thimerosal (a preservative) or formaldehyde? No History of severe reaction to any vaccine component or a previous dose of influenza vaccination? No History of Guillain-Kittrell Syndrome within 6 weeks after a previous influenza vaccine? No Current moderate or severe illness? No Current temperature greater or equal to 100.4F? No History of Bone Marrow Transplant in past 6 months or solid organ transplant in the past 3 months ? No [] VERIFICATION color enhanced section Was the answer Yes for any of the above contraindications? No contraindications present. Acceptable to proceed with vaccine. Patient/guardian agrees the above answers are true to the best of their knowledge? Yes Flu vaccine information sheet given? Yes See immunization activity in [facility] for details of immunizations adminstered today. Patient age: [age] year old For The [id number] Flu Season 6-35 months old: Fluzone 0.25 ml - IM (Preservative Free) 3 years of age: Fluzone 0.5 ml - IM (Preservative Free) 3 years and older: Fluzone 0.5 ml- IM-(with Preservatives) 65+ years old: Fluzone High-Dose 0.5 ml - IM (Preservative Free) REMEMBER: If patient is less than 9 years of age and this is the first vaccine of Influenza to be received in any flu season, they should receive a second dose in one months time. CNOV Observed: 03/26/2017 Status: COMPLETED Source: [place] 8:20 AM [facility] REPOSITORY Office Visit (INTMWS) ALICE COHN ([id number]) 1950 M Date Time Provider Department 03/26/17 8:20 AM VICKY CARBAJAL) INTMWS During your visit today, we recorded the following information about you: Temperature Pulse Respiration Blood pressure 97.6 degrees 73/minute 14/minute 140/88 Weight 94.3 kg Jenny Fernandez Tubing Assembler 03/26/2017 10:59 AM Signed 66 year old male here for INACTIVATED INFLUENZA VACCINE. Season Patient is identified by name and date of : Yes [] CONTRAINDICATIONS color enhanced section Age less than 6 months? No Allergy to eggs, chicken, chicken feathers, or chicken dander? No Allergy to thimerosal (a preservative) or formaldehyde? No History of severe reaction to any vaccine component or a previous dose of influenza vaccination? No History of Guillain-Kittrell Syndrome within 6 weeks after a previous influenza vaccine? No Current moderate or severe illness? No Current temperature greater or equal to 100.4F? No History of Bone Marrow Transplant in past 6 months or solid organ transplant in the past 3 months ? No [] VERIFICATION color enhanced section Was the answer ANDquot;YesANDquot; for any of the above contraindications? No contraindications present. Acceptable to proceed with vaccine. Patient/guardian agrees the above answers are true to the best of their knowledge? Yes Flu vaccine information sheet given? Yes See immunization activity in [facility] for details of immunizations adminstered today. Patient age: [age] year old For The Flu Season 6-35 months old: Fluzone 0.25 ml - IM (Preservative Free) 3 years of age: Fluzone 0.5 ml - IM (Preservative Free) 3 years and older: Fluzone 0.5 ml- IM-(with Preservatives) 65+ years old: Fluzone High-Dose 0.5 ml - IM (Preservative Free) REMEMBER: If patient is less than 9 years of age and this is the first vaccine of Influenza to be received in any flu season, they should receive a second dose in one months time. Nate Tatum CNP 03/26/2017 9:12 AM Signed CC: Patient presents with: Imm/Inj: Flu Vaccine HPI Alice Cohn is a 66 year old male who presents today for 3 month follow up and medication refills. DIABETES MELLITUS: Mr. Cohn was last seen 09/2016. Since our last visit he denies excessive thirst or increased frequency of urination, chest pain or dyspnea , numbness, tingling or pain in extremities, new or unusual visual symptoms, low sugar/hypoglycemic reactions, weight loss/gain, lightheadedness/dizziness and bowel changes/loose stools. Patient admits to have low sugar/hypoglycemic reactions once about a month ago. Follows a diabetic diet some of the time. He is compliant with medication(s) and is tolerating med(s) without any side effects. He reports checking his glucose on a four times a day schedule with sugars in the 160-170 ANDlt;200 range. 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 HTN: Mr. Cohn indicates that he is feeling well and denies any symptoms referable to elevated blood pressure. Specifically denies headache, chest pain, palpitations, dyspnea and peripheral edema. Patient denies any side effects of his medication(s) and is compliant with their regimen. He does not check BP's generally. Alice likes to exercise by walking daily. He watches his diet for sodium, low fat and low cholesterol some of the time. Last 3 Encounter BP Readings: Date: BP: 03/26/2017 150/100 10/23/2016 142/80 09/19/2016 145/82 REVIEW OF SYSTEMS General: no fevers, no chills, no night sweats, no recurrent infections, no change in appetite, no change in energy and no significant changes in weight HEENT: no frequent or significant headaches, no changes in hearing, no visual changes, no nose bleeds, no sinus or nasal problems Respiratory: no cough, no wheezing, no shortness of breath, no hemoptysis Cardiovascular: no chest pain, no chest pressure, no palpitations and no swelling GI: No nausea, vomiting, or diarrhea Neurologic: No headache, weakness, numbness, tingling, neck stiffness, tremor, vertigo, dizziness, memory loss, syncope. PAST MEDICAL HISTORY Diagnosis Date - ANXIETY STATE NOS 12/01/2007 - BCC: Basal Cell Carcinoma: Skin Cancer R nose-face 01/26/2010 - Chronic hepatitis C without mention of hepatic coma 03/02/1989 IF,Rib x 3 in the past. s/p Harvoni 2014 - Chronic tension headaches 08/30/2009 - Cirrhosis of liver without mention of alcohol 03/02/1989 - CKD (chronic kidney disease) 08/30/2009 Dr. Robertson. - Colon polyp 09/28/2007 - Osteopenia 08/30/2009 - Personal history of colonic polyps 08/30/2009 - Type II or unspecified type diabetes mellitus without mention of complication, uncontrolled 03/02/2004 PAST SURGICAL HISTORY Procedure Laterality Date - APPENDECTOMY 1965 - COLONOSCOP W/ OR W/O [facility] SPEC August Colonoscopy - COLONOSCOPY 2013 no record from [place] - PAST SURGICAL HISTORY OF 1965 ORIF Mandibular fractures - TRANSPLANT LIVER ORTHOTOPIC 07/17/2005 Hepatitis C ALLERGIES Review of patient's allergies indicates no known allergies. MEDICATIONS tacrolimus (PROGRAF) 1 mg capsule Take 1 tablet by mouth every morning and take 1 tablet by mouth every evening amLODIPine (NORVASC) 2.5 mg tablet Take 1 tablet by mouth once daily. insulin aspart (NOVOLOG FLEXPEN) 100 unit/mL inpn Inject 25- 30 Units subcutaneously three times daily with meals. 10-12 units at bedtime for glucose ANDgt;180. insulin glargine (LANTUS SOLOSTAR) 100 unit/mL (3 mL) inpn Inject 60 Units subcutaneously daily at bedtime. insulin needles, DISPOSABLE, (PEN NEEDLE) 31 gauge x 5/16ANDquot; ndle USE ONE NEEDLE FOR EACH DOSE ketoconazole (NIZORAL) 2 % shampoo Apply 1 application to affected area twice a week. MAGNESIUM 250 MG TAB 4 tablets daily CALCIUM 500 MG TAB 1000 mg tablets twice a day. CHOLECALCIFEROL (VITAMIN D3) 400 UNIT TAB Take one(1) tablet daily. CYANOCOBALAMIN 1,000 MCG TAB Take one(1) tablet daily. THERAPEUTIC MULTIVITAMIN TAB Take one(1) tablet daily. blood sugar diagnostic (ONETOUCH ULTRA TEST) test strip Test blood sugars 4 times daily. 250.02 FAMILY HISTORY Problem Relation Age of Onset - Cancer Paternal Aunt - Diabetes Paternal Uncle - Cancer Mother skin cancer - None Father adopted - None Brother - None Brother - None Brother Social History Substance Use Topics - Smoking status: Former Smoker Packs/day: 1.50 Years: 10.00 Types: Cigarettes Quit date: 03/02/1989 - Smokeless tobacco: Never Used - Alcohol use No PHYSICAL EXAM BP 150/100 Pulse 73 Temp 36.4 ?C (97.6 ?F) (Temporal Artery) Resp 14 Wt 94.3 kg (207 lb 12.8 oz) SpO2 96% BMI 31.6 kg/m2 General Appearance: well appearing, in no acute distress, alert Pysch: mood and affect broad and appropriate Skin: Skin color, texture, turgor normal for age; No rashes or lesions. Healing abrasion noted to left patrick without signs of infection. Head: normocephalic, atraumatic Eyes: PERRLA, conjunctiva pink and moist, no icterus, sclera white, non-injected Neck: Thyroid normal size and symmetric without palpable nodules, No adenopathy Lungs: Lungs clear to auscultation. No wheezing, rhonchi, rales Heart: RRR without murmur, gallop, or rubs. No ectopy Abdomen: Abdomen soft, non-tender. Bowel sounds normal. No masses, organomegaly Extremities: No deformities, edema, skin discoloration, clubbing or cyanosis. Good capillary refill. DM foot exam: shoes and socks removed, No deformities, ulcers, calluses and sensitive to 10 gm monofilament ADULT PREVNAR-13 due on 12/16/1971 DIABETIC FOOT EXAM due on 08/30/2010 COLORECTAL CANCER SCREENING,SEE MODIFIER due on 09/27/2012 TETANUS due on 03/02/2015 INFLUENZA(1) due on 10/31/2016 HBA1C due on 03/21/2017 URINE ALBUMIN CREATININE RATIO due on 09/18/2017 LDL due on 09/18/2017 DILATED RETINAL EXAM due on 03/03/2018 PROSTATE CANCER SCREENING DISCUSSION Completed HEPATITIS C SCREENING Completed ASSESSMENT/PLAN: 1. 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 - BP goal of ANDlt;140/90 - HGB A1C 2. Essential hypertension - ICD9: 401.9, ICD10: I10 - good control - Continue current medication(s) - Encouraged dietary sodium restriction/DASH diet - Recommended regular aerobic exercise. - Follow up in 3 months, sooner should new symptoms or problems arise. - Goal of BP ANDlt;140/90 3. Liver replaced by transplant (HCC) - ICD9: V42.7, ICD10: Z94.4 - Patient establishing care with GI specialist - Maintenance lab work and diagnostic screening up to date - TACROLIMUS 1 MG CAPSULE 4. Need for vaccination - ICD9: V05.9, ICD10: Z23 - INFLUENZA VACCINE QUADRIVALENT AGE 3 YRS PLUS + IM Prescription instructions reviewed with patient as applicable. Potential red flag symptoms discussed with the patient. Reviewed appropriate action plan to take if red flag symptoms occur. Patient agreeable to treatment plan. Nate Tatum, ABHISHEK Damianz aJmes, ABHISHEK 03/26/2017 10:59 AM Signed CC: Patient presents with: Imm/Inj: Flu Vaccine HPI Alice Cohn is a 66 year old male who presents today for 3 month follow up and medication refills. DIABETES MELLITUS: Mr. Cohn was last seen 09/2016. Since our last visit he denies excessive thirst or increased frequency of urination, chest pain or dyspnea , numbness, tingling or pain in extremities, new or unusual visual symptoms, low sugar/hypoglycemic reactions, weight loss/gain, lightheadedness/dizziness and bowel changes/loose stools. Patient admits to have low sugar/hypoglycemic reactions once about a month ago. Follows a diabetic diet some of the time. He is compliant with medication(s) and is tolerating med(s) without any side effects. He reports checking his glucose on a four times a day schedule with sugars in the 160-170 ANDlt;200 range. 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 HTN: Mr. Cohn indicates that he is feeling well and denies any symptoms referable to elevated blood pressure. Specifically denies headache, chest pain, palpitations, dyspnea and peripheral edema. Patient denies any side effects of his medication(s) and is compliant with their regimen. He does not check BP's generally. Alice likes to exercise by walking daily. He watches his diet for sodium, low fat and low cholesterol some of the time. Last 3 Encounter BP Readings: Date: BP: 03/26/2017 150/100 10/23/2016 142/80 09/19/2016 145/82 REVIEW OF SYSTEMS General: no fevers, no chills, no night sweats, no recurrent infections, no change in appetite, no change in energy and no significant changes in weight HEENT: no frequent or significant headaches, no changes in hearing, no visual changes, no nose bleeds, no sinus or nasal problems Respiratory: no cough, no wheezing, no shortness of breath, no hemoptysis Cardiovascular: no chest pain, no chest pressure, no palpitations and no swelling GI: No nausea, vomiting, or diarrhea Neurologic: No headache, weakness, numbness, tingling, neck stiffness, tremor, vertigo, dizziness, memory loss, syncope. PHYSICAL EXAM BP 150/100 Pulse 73 Temp 36.4 ?C (97.6 ?F) (Temporal Artery) Resp 14 Wt 94.3 kg (207 lb 12.8 oz) SpO2 96% BMI 31.6 kg/m2 General Appearance: well appearing, in no acute distress, alert Pysch: mood and affect broad and appropriate Skin: Skin color, texture, turgor normal for age; No rashes or lesions. Healing abrasion noted to left patrick without signs of infection. Head: normocephalic, atraumatic Eyes: PERRLA, conjunctiva pink and moist, no icterus, sclera white, non-injected Neck: Thyroid normal size and symmetric without palpable nodules, No adenopathy Lungs: Lungs clear to auscultation. No wheezing, rhonchi, rales Heart: RRR without murmur, gallop, or rubs. No ectopy Abdomen: Abdomen soft, non-tender. Bowel sounds normal. No masses, organomegaly Extremities: No deformities, edema, skin discoloration, clubbing or cyanosis. Good capillary refill. DM foot exam: shoes and socks removed, No deformities, ulcers, calluses and sensitive to 10 gm monofilament ADULT PREVNAR-13 due on 12/16/1971 DIABETIC FOOT EXAM due on 08/30/2010 COLORECTAL CANCER SCREENING,SEE MODIFIER due on 09/27/2012 TETANUS due on 03/02/2015 INFLUENZA(1) due on 10/31/2016 HBA1C due on 03/21/2017 URINE ALBUMIN CREATININE RATIO due on 09/18/2017 LDL due on 09/18/2017 DILATED RETINAL EXAM due on 03/03/2018 PROSTATE CANCER SCREENING DISCUSSION Completed HEPATITIS C SCREENING Completed ASSESSMENT/PLAN: 1. 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 - BP goal of ANDlt;140/90 - HGB A1C 2. Essential hypertension - ICD9: 401.9, ICD10: I10 - good control - Continue current medication(s) - Encouraged dietary sodium restriction/DASH diet - Recommended regular aerobic exercise. - Follow up in 3 months, sooner should new symptoms or problems arise. - Goal of BP ANDlt;140/90 3. Liver replaced by transplant (HCC) - ICD9: V42.7, ICD10: Z94.4 - Patient establishing care with GI specialist - Maintenance lab work and diagnostic screening up to date - TACROLIMUS 1 MG CAPSULE 4. 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 Potential red flag symptoms discussed with the patient. Reviewed appropriate action plan to take if red flag symptoms occur. Patient agreeable to treatment plan. Referring Provider: BORIS HERNANDEZ [[id number]] Allergies As of Date: 03/26/2017 (No Known Allergies) Date Reviewed: 03/26/2017 Reviewed by: Jenny Fernandez Tubing Assembler - Fully Assessed Reason for Visit: Imm/Inj [58] Cmt: Flu Vaccine Primary Visit Diagnosis:Uncontrolled type 2 diabetes mellitus with stage 2 chronic kidney disease, with long- term current use of insulin (HCC) [E11.22, E11.65, N18.2, Z79.4] Other Visit Diagnoses:Essential hypertension [I10] Liver replaced by transplant (HCC) [Z94.4] Need for vaccination [Z23] Order(s):INFLUENZA VACCINE QUADRIVALENT AGE 3 YRS PLUS + IM [[id number]] Order #: [id number] insulin glargine (LANTUS SOLOSTAR) 100 unit/mL (3 mL) inpnInject 70 Units subcutaneously daily at bedtime.Disp: 20 PenRfl: 3 [START ON 06/19/2017] insulin aspart (NOVOLOG FLEXPEN) 100 unit/mL inpnInject 25-30 Units subcutaneously three times daily with meals. 10-12 units at bedtime for glucose >180.Disp: 90 mLRfl: 2 tacrolimus (PROGRAF) 1 mg capsuleTake 1 tablet by mouth every morning and take 1 tablet by mouth every eveningDisp: 180 capsuleRfl: 2 blood sugar diagnostic (CONTOUR TEST STRIPS) test stripTest blood sugar(s) 4x daily. Dx: DM Type 2 Insulin: YesDisp: 400 StripRfl: 3 HGB A1C [[id number]] Order #: [id number] FUTURE Prescriptions as of 03/26/2017 Sig: INSULIN ASPART 100 UNIT/ML FUENTES* Inject 25-30 Units subcutaneo* TACROLIMUS 1 MG CAPSULE Take 1 tablet by mouth every * AMLODIPINE 2.5 MG TABLET Take 1 tablet by mouth once d* PEN NEEDLE, DIABETIC 31 GAUGE* USE ONE NEEDLE FOR EACH DOSE KETOCONAZOLE 2 % SHAMPOO Apply 1 application to affect* MAGNESIUM 250 MG TABLET 4 tablets daily CALCIUM 500 MG TABLET 1000 mg tablets twice a day. CHOLECALCIFEROL (VITAMIN D3) * Take one(1) tablet daily. CYANOCOBALAMIN (VIT B-12) 1,0* Take one(1) tablet daily. THERAPEUTIC MULTIVITAMIN TABL* Take one(1) tablet daily. 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* Liver transplanted (HCC) [Z94.4] INVALID FOR* CKD (chronic kidney disease) [N18.9] INVALID FOR* Osteopenia [M85.80] INVALID FOR* Personal History of Colonic Polyps [Z86.010] INVALID FOR* Gynecomastia [N62] INVALID FOR* Colon Polyp [K63.5] INVALID FOR* 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 INSULIN ASPART 100 UNIT/ML SUBCUTANE* 90 mL 2 06/19/2017 Route: SUBCUTANEOUS Sig: Inject 25-30 Units subcutaneously three times daily with meals. 10-12 units at bedtime for glucose >180. TACROLIMUS 1 MG CAPSULE 180 * 2 03/26/2017 Cmt: Prescription correction. Previous script only written for a daily dose for 90 days. Sig: Take 1 tablet by mouth every morning and take 1 tablet by mouth every evening BLOOD SUGAR DIAGNOSTIC STRIPS 400 * 3 03/26/2017 Sig: Test blood sugar(s) 4x daily. Dx: DM Type 2 Insulin: Yes Medications Discontinued During This Encounter blood sugar diagnostic (ONETOUCH ULT* 300 * 0 03/23/2017 03/26/2017 Sig: Test blood sugars 4 times daily. 250.02 Disc: Reason for discontinue is not on file. insulin glargine (LANTUS SOLOSTAR) 1* 20 P* 0 03/23/2017 03/26/2017 Route: SUBCUTANEOUS Sig: Inject 60 Units subcutaneously daily at bedtime. Disc: Reason for discontinue is not on file. insulin aspart (NOVOLOG FLEXPEN) 100* 90 mL 0 03/23/2017 03/26/2017 Route: SUBCUTANEOUS Sig: Inject 25-30 Units subcutaneously three times daily with meals. 10-12 units at bedtime for glucose >180. Disc: Reason for discontinue is not on file. tacrolimus (PROGRAF) 1 mg capsule 90 c* 0 03/23/2017 03/26/2017 Sig: Take 1 tablet by mouth every morning and take 1 tablet by mouth every evening Disc: Reason for discontinue is not on file. Encounter Status:Closed by VICKY CARBAJAL CNP on 03/26/17 OBSOLETE Observed: 03/23/2017 Status: COMPLETED Source: [place] 12:00 AM [facility] REPOSITORY Refill (MIQ) ALICE COHN ([id number]) 1950 M Date Time Provider Department 03/23/17 BORIS HERNANDEZ MIQ During your visit today, we recorded the following information about you: Hallie Puente SENA 03/23/2017 1:22 PM Signed Last appt with pcp 10/23/16. He missed the 01/30/17 3 month follow up appt. Please call pt to rescheduled Dec's 3 month follow up. Nikia Gonzalez LPN 03/23/2017 1:44 PM Signed Patient has been identified by name and date of : Yes Patient phones for refill(s): Pending Prescriptions Disp Refills TACROLIMUS 1 MG CAPSULE 0 Sig: Take 1 tablet by mouth every morning and take 1 tablet by mouth every evening CECE: No AMLODIPINE 2.5 MG TABLET 90 tablet 3 Sig: Take 1 tablet by mouth once daily. CECE: No BLOOD SUGAR DIAGNOSTIC STRIPS 300 Bottle 3 Sig: Use as instructed CECE: No INSULIN ASPART 100 UNIT/ML SUBCUTANEOUS PEN 0 Sig: Inject 25-30 Units subcutaneously three times daily with meals. 10-12 units at bedtime for glucose ANDgt;180. CECE: No INSULIN GLARGINE 100 UNIT/ML (3 ML) SUBCUTANEOUS PEN 20 Pen 3 Sig: Inject 60 Units subcutaneously daily at bedtime. CECE: No PEN NEEDLE, DIABETIC 31 GAUGE X 5/16ANDquot; 400 Each 3 CECE: No PEN NEEDLE, DIABETIC 31 GAUGE X 5/16ANDquot; 3 Sig: as directed. CECE: No Date of last office visit in primary care: 10/23/2016 No future appt scheduled Last 2 Encounter Wt Readings: Date: Wt: 10/23/2016 95.7 kg (211 lb) 09/19/2016 94.7 kg (208 lb 12.8 oz) Previous labs/tests for medication: Diabetes: Hemoglobin A1C (%) Date Value 09/18/2016 7.8 HBA1C, Gio (%) Date Value 04/02/2010 5.9 11/23/2009 6.9 Blood Pressure: BUN (mg/dL) Date Value 10/24/2016 17 Sodium (mmol/L) Date Value 10/24/2016 137 Last 1 Encounter BP Readings: Date: BP: 10/23/2016 142/80 Please advise. Thank you. Nikia Carbajal CNP 03/23/2017 3:45 PM Signed No show for 01/30/2017 follow-up, must reschedule for any further refills. The following approved medication requests have been transmitted electronically. Signed Prescriptions Disp Refills tacrolimus (PROGRAF) 1 mg capsule 90 capsule 0 Sig: Take 1 tablet by mouth every morning and take 1 tablet by mouth every evening CECE: No Authorizing Provider: VICKY CARBAJAL) amLODIPine (NORVASC) 2.5 mg tablet 90 tablet 0 Sig: Take 1 tablet by mouth once daily. CECE: No Authorizing Provider: VICKY CARBAJAL) insulin aspart (NOVOLOG FLEXPEN) 100 unit/mL inpn 90 mL 0 Sig: Inject 25-30 Units subcutaneously three times daily with meals. 10-12 units at bedtime for glucose ANDgt;180. CECE: No Authorizing Provider: VICKY CARBAJAL) insulin glargine (LANTUS SOLOSTAR) 100 unit/mL (3 mL) inpn 20 Pen 0 Sig: Inject 60 Units subcutaneously daily at bedtime. CECE: No Authorizing Provider: VICKY CARBAJAL) insulin needles, DISPOSABLE, (PEN NEEDLE) 31 gauge x 5/16ANDquot; ndle 400 Each 0 Sig: USE ONE NEEDLE FOR EACH DOSE CECE: No Authorizing Provider: VICKY CARBAJAL) blood sugar diagnostic (ONETOUCH ULTRA TEST) test strip 300 Bottle 0 Sig: Test blood sugars 4 times daily. 250.02 CECE: No Authorizing Provider: VICKY CARBAJAL) ABHISHEK Tucker LPN 03/23/2017 4:17 PM Signed Please call pt to reschedule Dec's appt. DARNELL Guaman 03/24/2017 11:16 AM Signed Patient is re-scheduled for f/u DARNELL Guaman Allergies As of Date: 03/23/2017 (No Known Allergies) Date Reviewed: 09/19/2016 Reviewed by: Jenny Fernandez Tubing Assembler - Fully Assessed Reason for Visit: Refill Request [94] Visit Diagnosis:Liver replaced by transplant (HCC) [Z94.4] Order(s):tacrolimus (PROGRAF) 1 mg capsuleTake 1 tablet by mouth every morning and take 1 tablet by mouth every eveningDisp: 90 capsuleRfl: 0 amLODIPine (NORVASC) 2.5 mg tabletTake 1 tablet by mouth once daily.Disp: 90 tabletRfl: 0 insulin aspart (NOVOLOG FLEXPEN) 100 unit/mL inpnInject 25-30 Units subcutaneously three times daily with meals. 10-12 units at bedtime for glucose >180.Disp: 90 mLRfl: 0 insulin glargine (LANTUS SOLOSTAR) 100 unit/mL (3 mL) inpnInject 60 Units subcutaneously daily at bedtime.Disp: 20 PenRfl: 0 insulin needles, DISPOSABLE, (PEN NEEDLE) 31 gauge x 5/16 ndleUSE ONE NEEDLE FOR EACH DOSEDisp: 400 EachRfl: 0 blood sugar diagnostic (ONETOUCH ULTRA TEST) test stripTest blood sugars 4 times daily. 250.02Disp: 300 BottleRfl: 0 Prescriptions as of 03/23/2017 Sig: TACROLIMUS 1 MG CAPSULE Take 1 tablet by mouth every * AMLODIPINE 2.5 MG TABLET Take 1 tablet by mouth once d* INSULIN ASPART 100 UNIT/ML FUENTES* Inject 25-30 Units subcutaneo* INSULIN GLARGINE 100 UNIT/ML * Inject 60 Units subcutaneousl* PEN NEEDLE, DIABETIC 31 GAUGE* USE ONE NEEDLE FOR EACH DOSE BLOOD SUGAR DIAGNOSTIC STRIPS Test blood sugars 4 times caro* KETOCONAZOLE 2 % SHAMPOO Apply 1 application to affect* MAGNESIUM 250 MG TABLET 4 tablets daily CALCIUM 500 MG TABLET 1000 mg tablets twice a day. CHOLECALCIFEROL (VITAMIN D3) * Take one(1) tablet daily. CYANOCOBALAMIN (VIT B-12) 1,0* Take one(1) tablet daily. THERAPEUTIC MULTIVITAMIN TABL* Take one(1) tablet daily. 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] INVALID FOR*10/23/2016 Solar Lentigines [L81.4] INVALID FOR*10/23/2016 Trauma-related and Surgical Scars [L90.5] INVALID FOR*10/23/2016 Seborrheic Keratosis [L82.1] INVALID FOR* Skin Tag Papilloma [L91.8] INVALID FOR*10/23/2016 Actinic Damage//Sun-Damaged Skin: moderate [L57*INVALID FOR* BCC: Basal Cell Carcinoma: Skin Cancer R nose-f*INVALID FOR*10/23/2016 Essential hypertension [I10] INVALID FOR* Prescriptions ordered this encounter Disp Refills Start End TACROLIMUS 1 MG CAPSULE 90 c* 0 03/23/2017 Sig: Take 1 tablet by mouth every morning and take 1 tablet by mouth every evening AMLODIPINE 2.5 MG TABLET 90 t* 0 03/23/2017 Route: ORAL Sig: Take 1 tablet by mouth once daily. INSULIN ASPART 100 UNIT/ML SUBCUTANE* 90 mL 0 03/23/2017 Route: SUBCUTANEOUS Sig: Inject 25-30 Units subcutaneously three times daily with meals. 10-12 units at bedtime for glucose >180. INSULIN GLARGINE 100 UNIT/ML (3 ML) * 20 P* 0 03/23/2017 Route: SUBCUTANEOUS Sig: Inject 60 Units subcutaneously daily at bedtime. PEN NEEDLE, DIABETIC 31 GAUGE X 5/16 400 * 0 03/23/2017 Sig: USE ONE NEEDLE FOR EACH DOSE BLOOD SUGAR DIAGNOSTIC STRIPS 300 * 0 03/23/2017 Sig: Test blood sugars 4 times daily. 250.02 Medications Discontinued During This Encounter needles, insulin disposable(BD INSUL* 3 katty* 3 08/10/2009 03/23/2017 Class: Print RX Route: Miscell. (Med.Supl.;Non-Drugs) Sig: Use as directed. Disc: Reason for discontinue is not on file. tacrolimus (PROGRAF) 1 mg capsule 0 09/19/2016 03/23/2017 Class: Historical Med Sig: Take 1 tablet by mouth every morning and take 1 tablet by mouth every evening Disc: Reason for discontinue is not on file. amLODIPine (NORVASC) 2.5 mg tablet 90 t* 3 01/20/2017 03/23/2017 Route: ORAL Sig: Take 1 tablet by mouth once daily. Disc: Reason for discontinue is not on file. insulin aspart (NOVOLOG FLEXPEN) 100* 0 10/23/2016 03/23/2017 Class: Med Update Route: SUBCUTANEOUS Sig: Inject 25-30 Units subcutaneously three times daily with meals. 10-12 units at bedtime for glucose >180. Disc: Reason for discontinue is not on file. insulin glargine (LANTUS SOLOSTAR) 1* 20 P* 3 10/23/2016 03/23/2017 Class: Med Update Route: SUBCUTANEOUS Sig: Inject 60 Units subcutaneously daily at bedtime. Disc: Reason for discontinue is not on file. insulin needles, DISPOSABLE, (PEN NE* 400 * 3 06/12/2010 03/23/2017 Class: Print RX Route: Miscell. (Med.Supl.;Non-Drugs) Sig: USE ONE NEEDLE FOR EACH DOSE Disc: Reason for discontinue is not on file. blood sugar diagnostic(ONE TOUCH ULT* 300 3 08/30/2009 03/23/2017 Class: Print RX Route: IN VITRO Sig: Test blood sugars 4 times daily. 250.02 Disc: Reason for discontinue is not on file. Encounter Status:Closed by DARNELL ORTEZ ALLISON on 03/24/17 ALLERGIES ALLERGIES DATE TYPE / CODE NAME / CODE REACTION SEVERITY SOURCE Drug NO KNOWN [facility] Class/21121 ALLERGIES [facility] 1003(SNOMED Repository CT) ENCOUNTERS ENCOUNTERS ADMIT/DISCHARGE ACCOUNT NUMBER ADMITTING ENCOUNTER LOCATION SOURCE CLASS 02/01/2018 [id number] [facility] ding:MFPLAB Repository 08/13/2017/08/14/19 [id number] [place] [address] ing:Formerly [facility] Repository 07/30/2017 [id number] [facility] ding:MTRAD Repository 07/28/2017 [id number] [facility] ding:MTLAB Repository 03/26/2017/03/26/[id number] Repository PAYERS PAYERS ENCOUNTER GUARANTOR PAYER SUBSCRIBER SOURCE 02/01/2018 ALICE Castillo Primary KAILA [id number] Insurance:ANTHEMPolicy CASSELDOB: [facility] [place]: [id number] [id number] Repository [address]Cmw: [phone]) Date:2067-28-50[phone] () [id number], [place] [address]HL: 02/01/2018 Secondary ALICE Powers Insurance:MEDICARE CASSELDOB: Community PART A BPolicy Number: [id number] Hospital [id number] Repository Date:2018-02-01 02/01/2018 Tertiary NOT GIVENUNK Gio Insurance:SELF PAY [facility] Number: Effective Repository Date:2018-02-01 08/13/2017 ALICE [facility] CASSELDOB: Insurance:ANTHEM BLUE CASSELDOB: Foundation [id number] [facility] [id number] Repository [place] Number: [address] [place], [place] [id number] [place] [address]~[place] Date:2017-03-02Tel: ([phone]) TARAN@[facility] [id number] [phone] : (240) Name:[facility] BOX () () [address] [place] [address] [phone] () [address]YV: 08/13/2017 Secondary [facility] Insurance:MEDICARE CASSELDOB: Foundation PART BPolicy Number: [id number] Repository [id number] [address] Date:2017-03-02 [place] 4824-08-82Pliz [address]Xhq: ([phone]) Name:[place] [address] [employer] ()Tel: 000) [address], [place] 000-0000 () [address]AE: 07/30/2017 ALICE [facility] KAILA L [place] [id number] Insurance:ANTHEMPolicy CASSELDOB: [facility] [place] Number: [id number] [id number] Repository [address]Dgv: ([phone]) Date:5602-64-09AI [phone] () [id number], [place] [address]TA: 07/30/2017 Secondary ALICE M Gio Insurance:MEDICARE CASSELDOB: Community PART A BPolicy Number: [id number] Hospital [id number] Repository Date:2017-07-30 07/30/2017 Tertiary NOT GIVENUNK [place] Insurance:SELF PAY [facility] Number: Effective Repository Date:2017-07-30 07/28/2017 ALICE Castillo Primary KAILA L [place] [id number] Insurance:ANTHEMPolicy CASSELDOB: [facility] Number: [id number] [id number] Repository [address]Fwr: (240) Date:0200-43-81FA [phone] (HC) [id number], [place] [address]RD: 07/28/2017 Secondary ALICE Powers Insurance:MEDICARE CASSELDOB: Community PART A BPolicy Number: [id number] Hospital [id number] Repository Date:2017-07-28 07/28/2017 Tertiary NOT GIVENUNK [place] Insurance:SELF PAY [facility] Number: Effective Repository Date:2017-07-28
== END ==
PROVIDERS: Family Provider Family Medicine; PCP Family Medicine; Visit Provider Family Medicine
DX: I10 Essential (primary) hypertension (principal); E11.9 Type 2 diabetes mellitus without complications
CPT/HCPCS: 36415; 80048; 80061; 80076; 82043; 82570; 83036

== ENCOUNTER → 2018-04-29 08:36 | Outpatient (CLI) | payer MEDICARE, SELFPAY ==
[2018-04-29 10:20] LABS: ALB/GLOB Ratio 1.1 RATIO (0.9-2.4); AST(SGOT) 34 U/L (15-37); Alanine Aminotransfer ALT/SGPT 53 U/L (16-61); Alkaline Phosphatase 108 U/L (45-117); Anion Gap 8 (5-15); BUN 17 mg/dL (7-18); BUN/Creat Ratio 12.6 RATIO (10-20); Calcium,Total 9.1 mg/dL (8.5-10.1); Chloride 103 mmol/L (98-107); Creatinine, Serum 1.35 mg/dL (0.70-1.30); EST Glomerular Filtration Rate 56 mL/min (>60); Est Glom Filt Rate - Afr Amer 68 mL/min (>60); Globulin 3.6 g/dL (2.2-4.2); Glucose 192 mg/dL (74-106); Protein, Total 7.6 g/dL (6.4-8.2); Sodium Level 141 mmol/L (136-145)
== END ==
PROVIDERS: Family Provider Family Medicine; PCP Family Medicine; Referring Provider Family Medicine; Visit Provider Family Medicine
DX: E78.5 Hyperlipidemia, unspecified (principal)
CPT/HCPCS: 36415; 80053

== ENCOUNTER 2018-06-22 16:12 | Emergency (ER) | payer MEDICARE, SELFPAY ==
[2018-06-22 16:13] VITALS: BP 149/83; PULSE 81; RESP 16; TEMP 36.4; O2SAT 95; BMI 31.9
[2018-06-22 17:39] VITALS: BP 145/83; BP 145/85; BP 155/90; PULSE 78; PULSE 81; PULSE 83
[2018-06-22 17:43] LABS: Absolute Neutrophil Count 3.3 X10^3/uL (2.0-7.7); Basophil# 0.02 X10^3/uL; Basophil% 0.3 % (0-1); Eosinophil# 0.26 X10^3/uL; Eosinophils% 3.3 % (0-5); Hematocrit 34.6 % (40-54); Hemoglobin 11.5 g/dl (13.0-16.5); Lymphocyte % 46.5 % (19-41); Mean Corp Hgb Conc 33.2 g/gl (32-36); Mean Corpuscular Hgb 29.3 pg (27.0-32.0); Mean Platelet Vol. 9.6 fl (6.2-12.0); Monocyte# 0.65 X10^3/uL; Monocyte% 8.2 % (0-10); Neutrophil # 3.32 X10^3/uL (2.7-7.7); Neutrophil % 41.6 % (47-70); Platelet Count 231 K/mm3 (150-450); RBC Distribution Width CV 13.3 % (11.6-14.6); RBC Distribution Width SD 42.7 fl (35.1-43.9); Red Blood Count 3.93 M/mm3 (4.6-6.2)
[2018-06-22 17:44] LABS: POSITIVE COUNT NO; POSITIVE DIFFERENTIAL NO; POSITIVE MORPHOLOGY NO
[2018-06-22] MEDS: 0.9% Normal Saline 1,000 ML 1000 ML IV (17:57)
[2018-06-22 18:08] LABS: Bacteria 0 SEEN /hpf (None Seen); Mucous, Urine 0 SEEN /hpf (<or=2+); Red Blood Cells-Urine 0 SEEN /hpf (0-5); Squamous Epithelial Cells - UA 0 SEEN /hpf (0-5); White Blood Cells 0 SEEN /hpf (0-5)
[2018-06-22 18:10] LABS: Color, Urine Yellow (Yellow); Glucose, Dipstick Normal (Normal); Ketone-Dipstick Negative (Negative); Leukocyte Esterase-Dipstick Negative /ul (Negative); Nitrite-Dipstick Negative (Negative); Occult Blood-Urine Negative /ul (Negative); Protein-Dipstick 15 mg/dl (Negative); Urine Bilirubin Dipstick Negative (Negative); Urine Clarity Clear (Clear); Urine Urobilinogen Normal (Normal)
[2018-06-22 18:14] LABS: ALB/GLOB Ratio 1.1 RATIO (0.9-2.4); AST(SGOT) 34 U/L (15-37); Alanine Aminotransfer ALT/SGPT 41 U/L (16-61); Albumin, Serum 3.7 g/dL (3.2-5.0); Alkaline Phosphatase 97 U/L (45-117); Anion Gap 5 (5-15); BUN 38 mg/dL (7-18); BUN/Creat Ratio 24.5 RATIO (10-20); Calcium,Total 8.5 mg/dL (8.5-10.1); Chloride 107 mmol/L (98-107); Creatinine, Serum 1.55 mg/dL (0.70-1.30); EST Glomerular Filtration Rate 48 mL/min (>60); Est Glom Filt Rate - Afr Amer 58 mL/min (>60); Estimated Creatinine Clearance 45.97 ml/min; Globulin 3.4 g/dL (2.2-4.2); Glucose 155 mg/dL (74-106); Potassium 4.3 mmol/L (3.5-5.1); Protein, Total 7.1 g/dL (6.4-8.2); Sodium Level 138 mmol/L (136-145)
--- NOTE | 2018-06-22 18:49 | ED.DCSUM_ITS ---
- ER Visit Summary Date of Service: 06/22/18 Chief Complaint: Blood in stool History of Present Illness: The patient is a [address] Remy Sims. He has a history of a liver transplant in 2005. States that he does not follow with anyone regarding this. He had a colonoscopy approximately 6 years ago in [place]. Patient reports that 11:00 yesterday he had an episode of black/maroon diarrhea. States that today he has had 2 firm bowel movements with a small amount of bright red blood. He denies any nausea or vomiting. No dysuria or frequency. Physical Examination: Vitals: Stable. Afebrile. General: Well-nourished and well-developed. Head: Normocephalic atraumatic. Neck: Supple, no lymphadenopathy. No JVD. Nontender. Cardiovascular: Regular rate and rhythm. No murmurs. Respiratory: No respiratory distress. Clear to auscultation bilaterally. Abdominal: Soft, nontender, nondistended, normal bowel sounds. No guarding, rebound, or peritoneal signs. Back: Nontender. Extremities: Nontender, no edema. Skin: Normal color, no rash. Neurologic: Alert and oriented ?3. Cranial nerves II through XII are intact. Normal strength and sensation. Psych: Normal affect. Test Results: CBC is marked for an H&H of 11.5 and 34.6. His last hemoglobin was 14.4 in June 2017. Segmented neutrophils 42 lymphocytes 47. Chem-7 shows a glucose of 155, BUN of 38, creatinine 1.55. Coags are normal. LFTs are normal. Emergency Department Course and Treatment: Patient had negative orthostatic vital signs. He is resting comfortably. Treatment Plan: The patient was discussed with Dr. Canales. He will be discharged with instructions to make an appointment to be seen as soon as possible. Return to [facility] for worsening bleeding or any other concerns. Disposition: To home in improved and stable condition. Impression: 1. Stable lower GI bleed. 2. History of liver transplant. This note was generated with [employer] dictation software. It may contain incorrect words, spelling, and punctuation that were not noted in review of the chart prior to signing ED Disposition - Plan for ED Patient: Disposition: Home or Assisted Living Instructions: ED Hematochezia Stable Referrals: Zoltan Canales MD [STAFF PHYSICIAN] - As soon as possible
[2018-06-22 18:52] LABS: International Normalized Ratio 1.1; Partial Thromboplast Time 27.6 Seconds (24.1-36.2); Prothrombin Time (Protime)PT. 13.9 SECONDS (11.7-14.9)
[2018-06-22 19:15] VITALS: BP 140/89; PULSE 80; RESP 15; O2SAT 92
== END 2018-06-22 19:15 | disposition home or self-care (01) ==
PROVIDERS: Emergency Provider Emergency Medicine; Family Provider Family Medicine; PCP Family Medicine
DX: K92.2 Gastrointestinal hemorrhage, unspecified (principal); Z94.4 Liver transplant status; E11.9 Type 2 diabetes mellitus without complications; I10 Essential (primary) hypertension; E78.00 Pure hypercholesterolemia, unspecified
CPT/HCPCS: 80053; 81001; 85025; 85610; 85730; 96360; 99284; J7030; A4216

== ENCOUNTER 2018-06-30 06:15 | Day surgery (SDC) | payer MEDICARE, SELFPAY ==
[2018-06-25 08:52] VITALS: BMI 31.9
--- NOTE | 2018-06-28 08:10 | HP_ITS ---
Intake Vital Signs 06/25/18 Body Mass Index (BMI) 31.9 06/25/18 Height 5 ft 8 in 06/25/18 Weight: 213 lb 06/25/18 Body Mass Index (BMI) 32.3 06/25/18 Blood Pressure 143/78 H 06/25/18 Blood Pressure Location Rt brachial 06/25/18 Blood Pressure Position Sitting 06/25/18 Respiratory Rate 18 06/25/18 Pulse Rate 86 06/25/18 Pulse Source Monitor 06/25/18 Temperature 98.0 F 06/25/18 Temperature Source Oral 06/25/18 Pulse Ox 96 06/25/18 Oxygen Delivery Method room air Intake Visit Reasons: [facility] ER F/U Blood in Stool [employer] Required: No Is patient in pain?: No Allergies No Known Allergies Allergy (Verified 06/25/18 08:44) Medications amlodipine 2.5 mg tablet 2.5 mg PO DAILY 06/25/18 [History Confirmed 06/25/18] calcium carbonate 600 mg calcium (1,500 mg) tablet 600 mg PO DAILY tab 06/25/18 [History Confirmed 06/25/18] magnesium 250 mg tablet 250 mg PO DAILY 06/25/18 [History Confirmed 06/25/18] metformin 500 mg tablet 500 mg PO QHS tab 06/25/18 [History Confirmed 06/25/18] multivitamin capsule 1 cap PO DAILY 06/25/18 [History Confirmed 06/25/18] omega-3 fatty acids 1,000 mg capsule 1,000 mg PO DAILY 06/25/18 [History Confirmed 06/25/18] rosuvastatin 40 mg tablet 40 mg PO DAILY 06/25/18 [History Confirmed 06/25/18] tacrolimus 1 mg capsule 1 mg PO Q12H 06/25/18 [History Confirmed 06/25/18] peg 3350-electrolytes 236 gram-22.74 gram-6.74 gram-5.86 gram solution 4,000 ml PO ONCE #4000 ml 06/28/18 [Rx] PFSH Medical History Acid reflux (Acute) Blood in stool (Acute) Diabetes (Acute) Hypertension (Chronic) Surgical History History of appendectomy (Acute) History of liver transplant (Acute) Family History Uncle Diabetes Social History Smoking Status: Former smoker alcohol intake: never substance use type: does not use HPI HPI HPI: ALICE COHN, is a 67 M who presents to the office today for HPI HPI Surgical H&P: Yes HPI: ALICE COHN, is a 67 M who presents to the office today for colonoscopy. The patient was seen in [facility]'s emergency department on 06/03/2018. At that point he had one episode of black-maroon diarrhea. The next day he had normal bowel movements but he saw blood leaching out of the stool. Because his toilet bowl to turn red. Patient is not having any nausea vomiting he has not been complaining of any abdominal pain. Patient has a history of a liver transplant that was done at [facility] in [facility]. This was completed on 04/11/2005. He has been following up with his primary care physician with regards to his antirejection medications. Patient states that he has had a colonoscopy approximately 6 years ago when he was in [place] which was negative. ROS General General: Yes fatigue; no weight change, appetite, colon cancer, breast cancer or weakness HEENT HEENT: Yes eye surgery; no difficulty swallowing, eye injury, swollen glands or hoarseness Endo Endocrine: Yes diabetes mellitus; no thyroid disease, thyroid cancer, Hair loss, heat intolerance or cold intolerance Skin Skin: No rash or changing moles Breast Breast: No left breast lump, right breast lump, nipple discharge, breast pain, abnormal mammogram, abnormal US or breast enlargement Musc Musculoskeletal: No back problems, arthritis, rheumatoid arthritis, gout or joint pain Cardio Cardiovascular: Yes high blood pressure; no murmur, pacemaker, heart disease, atrial fibrillation, heart attack, heart stent, palpitations, shortness of breat with exertion or chest pain Psych Psychiatric: No depression, anxiety or hearing voices Resp Respiratory: Yes shortness of breath, No sleep apnea, No cough, No COPD, No asthma, No emphysema, No wheezing Gastro Gastrointestinal: No abdominal pain, No nausea or vomiting, No diarrhea, No constipation, Yes blood in stool, Yes acid reflux, No hemorrhoids, No ulcers, No gallbladder problem, Yes black,tarry stools Johnny Hematologic: No blood thinners, No blood disorders, No bleeding, No anemia, No blood clots Neuro Neurologic: No system reviewed and no additional complaints, except as docu, No as per HPI, No abnormal walking, No abnormal hearing, No abnormal movements, No abnormal speech, No behavioral changes, No burning sensations, No confusion, No seizure-like activity, No unsteadiness, No dizziness, No localized weakness, No frequent falls, No headache(s), No lack of coordination, No loss of vision, No memory loss, No numbness, No other visual disturbances, No radiating pain, No restless legs, No sensory deficit, No fainting, No tingling, No tremor(s), No weakness, No other Exam Const General: no acute distress, well developed, well hydrated Orientation: oriented to person, oriented to place, oriented to time [facility] Head: normocephalic, atraumatic Ears: external ears normal Mouth: moist mucous membranes Eyes Sclera: sclerae normal Pupils: normal by confrontation Neck Neck: no lymphadenopathy noted Neck mass: No Thyroid: thyroid normal, symmetrical Chest Chest palpation & inspection: normal inspection of the chest Breast Palpation: No nipple discharge Resp Effort & Inspection: normal respiratory effort Auscultation: clear to auscultation bilaterally Percussion: percussion normal Cardio Rate: regular rate Rhythm: regular rhythm Heart Sounds: no murmurs GI Palpation: soft, no hepatosplenomegaly, no masses, nontender Rectal Exam: other Other: Rectal exam deferred. Extrem General: normal to inspection, no clubbing, cyanosis or edema Assessment & Plan Problems 1. Hematochezia K92.1 Plan I have discussed the above with the patient. I have offered the patient colonoscopy for evaluation. I have explained the risks/benefits of the procedure and described the procedure. I have discussed the risks with the patient, including but not limited to: infection, bleeding, perforation of the GI tract requiring emergency surgery, inability to complete the procedure, injury to any internal organs, complications of anesthesia, etc. - the patient understands and agrees to proceed. I have answered all the patient's questions to the patient's satisfaction and the patient has no further questions. The patient has been given instructions for the colon cleansing preparation. Coding Level of Care Code Off vis,new,level 3 Diagnoses Hematochezia K92.1 I have re-examined the patient. There are no clinical changes since date of exam.
[2018-06-30 07:01] VITALS: BP 145/90; PULSE 82; RESP 16; TEMP 37.4; O2SAT 100; BMI 32.3
[2018-06-30 07:31] LABS: Bedside Glucose 196 mg/dL (70-110)
[2018-06-30 07:58] VITALS: BP 110/65; BP 145/90; PULSE 72; RESP 16; TEMP 36.5; O2SAT 92
--- NOTE | 2018-06-30 07:59 | OP.ENDO_ITS ---
06/30/2018 Remy Mallory MD [address] [phone] Re : Colonoscopy procedure for Ernie Delarosa Dear Dr. Mallory This procedure was performed on Saturday, June 30, 2018. My impressions and recommendations are as follows: Impressions : - Non-bleeding external and internal hemorrhoids. - The examination was otherwise normal. - No specimens collected. Recommendations : - Discharge patient to home. - Resume previous diet. - Continue present medications. - Repeat colonoscopy in 10 years for screening purposes. - Return to primary care physician PRN. My findings are described in the full procedure note, which is enclosed. If I can be of further assistance, please feel free to contact me at Doctor phone number(s): , Fax: [phone], Work: . Sincerely, MD Zoltan Dickerson MD 06/30/2018 7:59:34 AM This report has been signed electronically.
[2018-06-30 08:05] VITALS: BP 114/59; BP 145/90; PULSE 70; RESP 16; O2SAT 96
[2018-06-30 08:10] VITALS: BP 116/68; BP 145/90; PULSE 65; RESP 16; O2SAT 92
[2018-06-30 08:15] VITALS: BP 128/75; BP 145/90; PULSE 68; RESP 16; TEMP 37.2; O2SAT 100
[2018-06-30 08:44] VITALS: BP 145/90
== END 2018-06-30 08:49 | disposition home or self-care (01) ==
LOC: EN 06:15 → AC 06:16
PROVIDERS: Family Provider Family Medicine; PCP Family Medicine; Referring Provider Family Medicine; Visit Provider Surgery
PROC: 0DJD8ZZ Inspection of Lower Intestinal Tract, Via Natural or Artificial Opening Endoscopic (ICD-10-PCS; CPT 45378; principal; 2018-06-30 07:25)
DX: K64.8 Other hemorrhoids (principal); K92.1 Melena; I10 Essential (primary) hypertension; Z94.4 Liver transplant status; Z87.891 Personal history of nicotine dependence; E11.9 Type 2 diabetes mellitus without complications; E78.00 Pure hypercholesterolemia, unspecified; Z79.4 Long term (current) use of insulin; Z86.19 Personal history of other infectious and parasitic diseases
CPT/HCPCS: 45378; 82962; J7120

== ENCOUNTER → 2018-07-29 08:47 | Outpatient (CLI) | payer MEDICARE, SELFPAY ==
[2018-06-30 07:01] VITALS: BMI 32.3
[2018-07-29 10:22] LABS: Microalbumin:Creatinine Ratio 87.3 mg/g CRE (<30 mg/g CRE)
[2018-07-29 10:39] LABS: AST(SGOT) 40 U/L (15-37); Alanine Aminotransfer ALT/SGPT 51 U/L (16-61); Albumin, Serum 4.1 g/dL (3.2-5.0); Alkaline Phosphatase 104 U/L (45-117); Anion Gap 6 (5-15); BUN 21 mg/dL (7-18); BUN/Creat Ratio 17.5 RATIO (10-20); Bilirubin, Direct 0.11 mg/dL (0.00-0.30); Calcium,Total 9.1 mg/dL (8.5-10.1); Chloride 107 mmol/L (98-107); Cholesterol 123 mg/dL (200); EST Glomerular Filtration Rate 65 mL/min (>60); Est Glom Filt Rate - Afr Amer 78 mL/min (>60); Globulin 3.6 g/dL (2.2-4.2); Glucose 84 mg/dL (74-106); High Density Lipoprotein 40 mg/dL; Potassium 4.8 mmol/L (3.5-5.1); Protein, Total 7.7 g/dL (6.4-8.2); Sodium Level 139 mmol/L (136-145); Triglycerides 272 mg/dL; Very Low Density Lipoprotein 54 mg/dL (5-40)
== END ==
PROVIDERS: Family Provider Family Medicine; PCP Family Medicine; Referring Provider Family Medicine; Visit Provider Family Medicine
DX: E11.9 Type 2 diabetes mellitus without complications (principal)
CPT/HCPCS: 36415; 80048; 80061; 80076; 82043; 82570

== ENCOUNTER → 2019-01-24 08:51 | Outpatient (CLI) | payer MEDICARE, SELFPAY ==
[2019-01-24 10:34] LABS: Anion Gap 6 (5-15); BUN 16 mg/dL (7-18); BUN/Creat Ratio 11.8 RATIO (10-20); Calcium,Total 8.8 mg/dL (8.5-10.1); Chloride 105 mmol/L (98-107); Creatinine, Serum 1.36 mg/dL (0.70-1.30); EST Glomerular Filtration Rate 56 mL/min (>60); Est Glom Filt Rate - Afr Amer 67 mL/min (>60); Glucose 97 mg/dL (74-106); Sodium Level 139 mmol/L (136-145)
== END ==
PROVIDERS: Family Provider Family Medicine; PCP Family Medicine; Visit Provider Family Medicine
DX: E11.9 Type 2 diabetes mellitus without complications (principal)
CPT/HCPCS: 36415; 80048

== ENCOUNTER → 2019-06-21 07:48 | Outpatient (CLI) | payer MEDICARE, SELFPAY ==
[2019-06-21 10:19] LABS: Anion Gap 7 (5-15); BUN 18 mg/dL (7-18); BUN/Creat Ratio 12.9 RATIO (10-20); Calcium,Total 9.1 mg/dL (8.5-10.1); Chloride 104 mmol/L (98-107); Cholesterol 118 mg/dL (200); EST Glomerular Filtration Rate 54 mL/min (>60); Est Glom Filt Rate - Afr Amer 65 mL/min (>60); Glucose 294 mg/dL (74-106); High Density Lipoprotein 38 mg/dL; PSA,Total - Annual Screen 0.56 ng/mL (0.00-4.00); Potassium 4.9 mmol/L (3.5-5.1); Sodium Level 138 mmol/L (136-145); Triglycerides 229 mg/dL; Very Low Density Lipoprotein 46 mg/dL (5-40)
== END ==
PROVIDERS: PCP Family Medicine; Referring Provider Family Medicine; Visit Provider Family Medicine
DX: Z00.00 Encounter for general adult medical examination without abnormal findings (principal); E78.5 Hyperlipidemia, unspecified; Z12.5 Encounter for screening for malignant neoplasm of prostate
CPT/HCPCS: 36415; 80048; 80061; 84153; G0103

== ENCOUNTER → 2019-12-19 08:44 | Outpatient (CLI) | payer MEDICARE, SELFPAY ==
[2019-12-19 09:56] LABS: AST(SGOT) 27 U/L (15-37); Alanine Aminotransfer ALT/SGPT 39 U/L (16-61); Albumin, Serum 3.9 g/dL (3.2-5.0); Alkaline Phosphatase 92 U/L (45-117); Anion Gap 8 (5-15); BUN 14 mg/dL (7-18); BUN/Creat Ratio 11.1 RATIO (10-20); Calcium,Total 8.9 mg/dL (8.5-10.1); Chloride 104 mmol/L (98-107); Creatinine, Serum 1.26 mg/dL (0.70-1.30); EST Glomerular Filtration Rate 61 mL/min (>60); Est Glom Filt Rate - Afr Amer 73 mL/min (>60); Globulin 3.8 g/dL (2.2-4.2); Glucose 158 mg/dL (74-106); Potassium 4.7 mmol/L (3.5-5.1); Protein, Total 7.7 g/dL (6.4-8.2); Sodium Level 140 mmol/L (136-145)
== END ==
PROVIDERS: PCP Family Medicine; Visit Provider Family Medicine
DX: Z94.4 Liver transplant status (principal)
CPT/HCPCS: 36415; 80053

== ENCOUNTER → 2020-06-14 08:33 | Outpatient (CLI) | payer MEDICARE, SELFPAY ==
[2020-06-14 10:58] LABS: AST(SGOT) 20 U/L (15-37); Alanine Aminotransfer ALT/SGPT 34 U/L (16-61); Albumin, Serum 3.9 g/dL (3.2-5.0); Alkaline Phosphatase 85 U/L (45-117); Anion Gap 4 (5-15); BUN 26 mg/dL (7-18); BUN/Creat Ratio 18.2 RATIO (10-20); Calcium,Total 9.4 mg/dL (8.5-10.1); Chloride 106 mmol/L (98-107); Creatinine, Serum 1.43 mg/dL (0.70-1.30); EST Glomerular Filtration Rate 52 mL/min (>60); Est Glom Filt Rate - Afr Amer 63 mL/min (>60); Globulin 3.8 g/dL (2.2-4.2); Glucose 133 mg/dL (74-106); Potassium 4.4 mmol/L (3.5-5.1); Protein, Total 7.7 g/dL (6.4-8.2); Sodium Level 138 mmol/L (136-145)
== END ==
PROVIDERS: PCP Family Medicine; Referring Provider Family Medicine; Visit Provider Family Medicine
DX: E78.5 Hyperlipidemia, unspecified (principal)
CPT/HCPCS: 36415; 80053

== ENCOUNTER → 2020-12-14 08:23 | Outpatient (CLI) | payer MEDICARE, SELFPAY ==
[2020-12-14 09:55] LABS: Absolute Lymphocyte Count 2.75 X10^3/uL (0.83-4.51); Absolute Neutrophil Count 3.9 X10^3/uL (2.0-7.7); Basophil# 0.04 X10^3/uL; Basophil% 0.5 % (0-1); Eosinophils% 3.9 % (0-5); Hematocrit 41.9 % (40-54); Lymphocyte # 2.75 X10^3/ul (0.83-4.51); Mean Corp Hgb Conc 33.4 g/dL (32-36); Mean Corpuscular Hgb 29.9 pg (27.0-32.0); Mean Corpuscular Volume 89.3 fL (80-94); Mean Platelet Vol. 10.4 fl (6.2-12.0); Monocyte% 7.9 % (0-10); NRBC Flagged by Analyzer 0 % (0-5); Neutrophil # 3.93 X10^3/uL (2.7-7.7); Neutrophil % 51.6 % (47-70); Platelet Count 279 K/mm3 (150-450); RBC Distribution Width SD 42.3 fl (35.1-43.9); Red Blood Count 4.69 M/mm3 (4.6-6.2); White Blood Count 7.6 K/mm3 (4.4-11.0)
[2020-12-14 10:13] LABS: ALB/GLOB Ratio 0.9 RATIO (0.9-2.4); AST(SGOT) 31 U/L (15-37); Alanine Aminotransfer ALT/SGPT 42 U/L (16-61); Albumin, Serum 3.7 g/dL (3.2-5.0); Alkaline Phosphatase 87 U/L (45-117); Anion Gap 7 (5-15); BUN 17 mg/dL (7-18); BUN/Creat Ratio 12.1 RATIO (10-20); Calcium,Total 9.2 mg/dL (8.5-10.1); Chloride 105 mmol/L (98-107); Creatinine, Serum 1.41 mg/dL (0.70-1.30); EST Glomerular Filtration Rate 53 mL/min (>60); Est Glom Filt Rate - Afr Amer 64 mL/min (>60); Glucose 130 mg/dL (74-106); Potassium 4.4 mmol/L (3.5-5.1); Protein, Total 7.7 g/dL (6.4-8.2); Sodium Level 140 mmol/L (136-145)
== END ==
PROVIDERS: PCP Family Medicine; Referring Provider Family Medicine; Visit Provider Family Medicine
DX: Z94.4 Liver transplant status (principal)
CPT/HCPCS: 36415; 80053; 85025

== ENCOUNTER → 2021-12-25 | Outpatient (CLI) | payer MEDICARE, SELFPAY ==
[2021-12-25 12:25] LABS: AST(SGOT) 32 U/L (15-37); Alanine Aminotransfer ALT/SGPT 41 U/L (16-61); Albumin, Serum 3.8 g/dL (3.2-5.0); Alkaline Phosphatase 73 U/L (45-117); Anion Gap 5 (5-15); BUN 17 mg/dL (7-18); BUN/Creat Ratio 13.7 RATIO (10-20); Calcium,Total 9.3 mg/dL (8.5-10.1); Chloride 109 mmol/L (98-107); Creatinine, Serum 1.24 mg/dL (0.70-1.30); EST Glomerular Filtration Rate 61 mL/min (>60); Est Glom Filt Rate - Afr Amer 74 mL/min (>60); Globulin 3.7 g/dL (2.2-4.2); Glucose 99 mg/dL (74-106); Potassium 4.8 mmol/L (3.5-5.1); Protein, Total 7.5 g/dL (6.4-8.2); Sodium Level 139 mmol/L (136-145)
== END | disposition home or self-care (01) ==
LOC: MFPLAB 09:42
PROVIDERS: PCP Family Medicine; Referring Provider Family Medicine; Visit Provider Family Medicine
DX: E11.9 Type 2 diabetes mellitus without complications (principal)
CPT/HCPCS: 36415; 80053

== ENCOUNTER → 2022-12-18 | Outpatient (CLI) | payer MEDICARE, SELFPAY ==
--- NOTE | 2022-12-18 11:44 | RAD_ITS ---
STUDY: X-RAY - LUMBAR SPINE REASON FOR EXAM: Male, 72 years old. Back pain. TECHNIQUE: 5 view(s) of the lumbar spine were obtained. COMPARISON: None FINDINGS: Osteopenia. Normal lumbar lordosis. Mild levoscoliosis. Normal alignment of the vertebrae. Diffuse lower thoracic and lumbosacral facet sclerosis. Diffuse intervertebral disc space narrowing with small osteophytes most marked at L2-3, L3-4 and L5-S1. Marked vascular calcification. RAD/L/S Spine Min 4 Views IMPRESSION: Osteopenia with diffuse moderate lower thoracic and lumbosacral spondylosis. Electronically Signed: Omega Kingsley MD at 14:44 EDT ,
[2022-12-18 15:24] LABS: Absolute Lymphocyte Count 2.56 X10^3/uL (0.83-4.51); Absolute Neutrophil Count 3.9 X10^3/uL (2.0-7.7); Basophil# 0.03 X10^3/uL; Basophil% 0.4 % (0-1); Eosinophil# 0.22 X10^3/uL; Hematocrit 42.9 % (40-54); Hemoglobin 13.9 g/dL (13.0-16.5); Lymphocyte # 2.56 X10^3/ul (0.83-4.51); Lymphocyte % 34.8 % (19-41); Mean Corp Hgb Conc 32.4 g/dL (32-36); Mean Corpuscular Volume 92.7 fL (80-94); Mean Platelet Vol. 10.5 fl (6.2-12.0); Monocyte# 0.62 X10^3/uL; Monocyte% 8.4 % (0-10); NRBC Flagged by Analyzer 0 % (0-5); Neutrophil # 3.91 X10^3/uL (2.7-7.7); Neutrophil % 53.1 % (47-70); Platelet Count 268 K/mm3 (150-450); RBC Distribution Width CV 13.4 % (11.6-14.6); RBC Distribution Width SD 45.8 fl (35.1-43.9); Red Blood Count 4.63 M/mm3 (4.6-6.2); White Blood Count 7.4 K/mm3 (4.4-11.0)
[2022-12-18 15:51] LABS: Vitamin D,25 Hydroxy 23.5 ng/mL
[2022-12-18 16:22] LABS: AST(SGOT) 43 U/L (15-37); Alanine Aminotransfer ALT/SGPT 45 U/L (16-61); Albumin, Serum 3.9 g/dL (3.2-5.0); Alkaline Phosphatase 90 U/L (45-117); Anion Gap 9 (5-15); BUN 14 mg/dL (7-18); BUN/Creat Ratio 12.3 RATIO (10-20); Calcium,Total 9.3 mg/dL (8.5-10.1); Chloride 106 mmol/L (98-107); Cholesterol 124 mg/dL (200); Creatinine, Serum 1.14 mg/dL (0.70-1.30); EST Glomerular Filtration Rate 68 mL/min (>60); Est Glom Filt Rate - Afr Amer 82 mL/min (>60); Globulin 4.1 g/dL (2.2-4.2); Glucose 120 mg/dL (74-106); High Density Lipoprotein 44 mg/dL; PSA,Total - Annual Screen 0.58 ng/mL (0.00-4.00); Potassium 4.6 mmol/L (3.5-5.1); Sodium Level 142 mmol/L (136-145); Triglycerides 206 mg/dL; Very Low Density Lipoprotein 41 mg/dL (5-40)
[2022-12-18 20:47] LABS: Hemoglobin A1c 7.4 % (3.8-5.6)
[2022-12-22 14:08] LABS: Tacrolimus (FK506) 2.6 ng/mL (2.0-20.0)
== END | disposition home or self-care (01) ==
PROVIDERS: PCP Family Medicine; Referring Provider Family Medicine; Visit Provider Family Medicine
DX: M45.0 Ankylosing spondylitis of multiple sites in spine (principal); Z94.4 Liver transplant status; E11.9 Type 2 diabetes mellitus without complications; E78.5 Hyperlipidemia, unspecified; I10 Essential (primary) hypertension; Z12.5 Encounter for screening for malignant neoplasm of prostate
CPT/HCPCS: 36415; 72110; 80053; 80061; 80197; 82043; 82306; 82570; 83036; 84153; 85025; G0103

== ENCOUNTER → 2023-01-08 | Outpatient (CLI) | payer MEDICARE, SELFPAY ==
--- NOTE | 2023-01-08 15:21 | BD_ITS ---
STUDY: DUAL ENERGY X-RAY ABSORPTIOMETRY / DXA REASON FOR EXAM: Male, 72 years old. M85.89 TECHNIQUE: Bone Mineral Density (BMD) measurements of lumbar spine and bilateral hips were obtained. COMPARISON: None. FINDINGS: Lumbar Spine (L1-L4): g/cm2 (0.944) / T-score (-1.3) / Z-score (-0.4) Findings are suggestive of osteopenia with a low fracture risk. Left Femur Total: g/cm2 (0.959) / T-score (-0.5) / Z-score (0.2) Left Femoral Neck: g/cm2 (0.660) / T-score (-2.0) / Z-score (-0.8) Right Femur Total: g/cm2 (0.951) / T-score (-0.5) / Z-score (0.1) Right Femoral Neck: g/cm2 (0.703) / T-score (-1.7) / Z-score (-0.5) BD/Dexa Bone Density Study IMPRESSION: The patient is considered osteoporotic as outlined below according to World Judah Organization (WHO) criteria with a moderate fracture risk. Reference Information: The T-score is the number of standard deviations above or below the standard which is normal for young adults at their peak bone mineral density. The World Health Organization (WHO) interprets the T-scores as follows: Above -1 Normal bone density Between -1 and -2.5 Osteopenia Equal to / or below -2.5 Osteoporosis As a practical clinical guideline, osteopenia may be graded as follows: Mild -1 through -1.5 Moderate -1.6 through -2.0 Severe -2.1 through -2.4 The Z-score is the number of standard deviations above or below age-matched controls. A Z-score of less than -1.5 would be considered abnormal. References: 1. NIH Osteoporosis and Related Bone Diseases www osteo.org 2. International Society for Clinical Densitometry www iscd.org 3. National Osteoporosis Foundation www nof.org Electronically Signed: Kevin Gonzalez MD at 14:28 EST ,
== END | disposition home or self-care (01) ==
LOC: OPBD 15:16
PROVIDERS: PCP Family Medicine; Referring Provider Family Medicine; Visit Provider Family Medicine
DX: M85.89 Other specified disorders of bone density and structure, multiple sites (principal)
CPT/HCPCS: 77080

== ENCOUNTER → 2023-06-19 | Outpatient (CLI) | payer MEDICARE, SELFPAY ==
[2023-06-19 12:07] LABS: AST(SGOT) 33 U/L (15-37); Alanine Aminotransfer ALT/SGPT 42 U/L (16-61); Albumin, Serum 3.9 g/dL (3.2-5.0); Alkaline Phosphatase 92 U/L (45-117); Anion Gap 4 (5-15); BUN 23 mg/dL (7-18); BUN/Creat Ratio 15.3 RATIO (10-20); Calcium,Total 10.1 mg/dL (8.5-10.1); Chloride 108 mmol/L (98-107); Cholesterol 119 mg/dL (200); EST Glomerular Filtration Rate 49 mL/min (>60); Est Glom Filt Rate - Afr Amer 59 mL/min (>60); Glucose 125 mg/dL (74-106); High Density Lipoprotein 34 mg/dL; Potassium 4.7 mmol/L (3.5-5.1); Protein, Total 7.9 g/dL (6.4-8.2); Sodium Level 141 mmol/L (136-145); Triglycerides 402 mg/dL
== END | disposition home or self-care (01) ==
LOC: MFPLAB 08:49
PROVIDERS: PCP Family Medicine; Visit Provider Family Medicine
DX: E11.9 Type 2 diabetes mellitus without complications (principal)
CPT/HCPCS: 36415; 80053; 80061

== ENCOUNTER → 2023-09-18 | Outpatient (CLI) | payer MEDICARE, SELFPAY ==
[2023-09-18 11:00] LABS: ALB/GLOB Ratio 0.9 RATIO (0.9-2.4); AST(SGOT) 45 U/L (15-37); Alanine Aminotransfer ALT/SGPT 52 U/L (16-61); Albumin, Serum 3.7 g/dL (3.2-5.0); Alkaline Phosphatase 76 U/L (45-117); Anion Gap 7 (5-15); BUN 17 mg/dL (7-18); BUN/Creat Ratio 12.3 RATIO (10-20); Calcium,Total 9.2 mg/dL (8.5-10.1); Chloride 105 mmol/L (98-107); Cholesterol 102 mg/dL (200); Creatinine, Serum 1.38 mg/dL (0.70-1.30); EST Glomerular Filtration Rate 54 mL/min (>60); Est Glom Filt Rate - Afr Amer 65 mL/min (>60); Glucose 87 mg/dL (74-106); High Density Lipoprotein 43 mg/dL; Potassium 4.8 mmol/L (3.5-5.1); Protein, Total 7.7 g/dL (6.4-8.2); Sodium Level 140 mmol/L (136-145); Triglycerides 186 mg/dL; Very Low Density Lipoprotein 37 mg/dL (5-40)
== END | disposition home or self-care (01) ==
LOC: MFPLAB 09:04
PROVIDERS: PCP Family Medicine; Visit Provider Family Medicine
DX: E11.9 Type 2 diabetes mellitus without complications (principal)
CPT/HCPCS: 36415; 80053; 80061

== ENCOUNTER → 2023-12-21 | Outpatient (CLI) | payer MEDICARE, SELFPAY ==
[2023-12-21 11:05] LABS: ALB/GLOB Ratio 1.1 RATIO (0.9-2.4); AST(SGOT) 46 U/L (15-37); Alanine Aminotransfer ALT/SGPT 54 U/L (16-61); Albumin, Serum 3.9 g/dL (3.2-5.0); Alkaline Phosphatase 82 U/L (45-117); Anion Gap 10 (5-15); BUN 20 mg/dL (7-18); BUN/Creat Ratio 14.4 RATIO (10-20); Calcium,Total 9.6 mg/dL (8.5-10.1); Chloride 107 mmol/L (98-107); Cholesterol 110 mg/dL (200); Creatinine, Serum 1.39 mg/dL (0.70-1.30); EST Glomerular Filtration Rate 54 mL/min (>60); Est Glom Filt Rate - Afr Amer 65 mL/min (>60); Globulin 3.7 g/dL (2.2-4.2); Glucose 168 mg/dL (74-106); High Density Lipoprotein 44 mg/dL; PSA,Total - Annual Screen 0.96 ng/mL (0.00-4.00); Protein, Total 7.6 g/dL (6.4-8.2); Sodium Level 142 mmol/L (136-145); Triglycerides 228 mg/dL; Very Low Density Lipoprotein 46 mg/dL (5-40)
== END | disposition home or self-care (01) ==
PROVIDERS: PCP Family Medicine; Visit Provider Family Medicine
DX: I10 Essential (primary) hypertension (principal); Z12.5 Encounter for screening for malignant neoplasm of prostate
CPT/HCPCS: 36415; 80053; 80061; 84153; G0103

== ENCOUNTER → 2024-07-14 | Outpatient (CLI) | payer MEDICARE, SELFPAY ==
[2024-07-14 18:07] LABS: Cholesterol 120 mg/dL (<=200); High Density Lipoprotein 40 mg/dL; Low Density Lipoprotein Calc. 37 mg/dL; Triglycerides 213 mg/dL; Very Low Density Lipoprotein 43 mg/dL (5-40); cholesterol:hdl ratio screen 2.99
[2024-07-14 18:36] LABS: ALB/GLOB Ratio 1.4 RATIO (0.9-2.4); AST(SGOT) 68 U/L (<=37); Alanine Aminotransfer ALT/SGPT 46 U/L (<=46); Albumin, Serum 4.4 g/dL (3.4-4.8); Alkaline Phosphatase 87 U/L (40-129); Anion Gap 13 (5-15); BUN 14 mg/dL (4-19); BUN/Creat Ratio 11.2 RATIO (10-20); Calcium,Total 9.6 mg/dL (7.6-11.0); Carbon Dioxide 24.9 mmol/L (21.0-32.0); Chloride 103 mmol/L (98-108); Creatinine, Serum 1.28 mg/dL (0.70-1.20); EST Glomerular Filtration Rate 60 (>60); Globulin 3.2 g/dL (2.2-4.2); Glucose 116 mg/dL (70-99); Potassium 5.1 mmol/L (3.3-5.1); Protein, Total 7.7 g/dL (5.9-8.4); Sodium Level 141 mmol/L (133-145); Total Bilirubin 0.35 mg/dL (0.00-1.30)
[2024-07-18 20:08] LABS: Tacrolimus (FK506) 2.5 ng/mL (5.0-20.0)
== END | disposition home or self-care (01) ==
PROVIDERS: PCP Family Medicine; Referring Provider Family Medicine; Visit Provider Family Medicine
DX: I10 Essential (primary) hypertension (principal); Z94.4 Liver transplant status
CPT/HCPCS: 36415; 80053; 80061; 80197

== ENCOUNTER → 2024-08-09 | Outpatient (CLI) | payer MEDICARE, SELFPAY ==
[2024-08-09 11:28] LABS: Microalbumin,Random Urine 27.7 mg/L (NO RANGE EST.)
== END | disposition home or self-care (01) ==
LOC: LABSPEC 09:31
PROVIDERS: PCP Family Medicine; Referring Provider Family Medicine; Visit Provider Family Medicine
DX: E11.9 Type 2 diabetes mellitus without complications (principal)
CPT/HCPCS: 82043; 82570

== ENCOUNTER → 2024-10-28 | Outpatient (CLI) | payer MEDICARE, SELFPAY ==
[2024-10-28 10:36] LABS: Hematocrit 42.4 % (40-54); Hemoglobin 13.8 g/dL (13.0-16.5); Immature Granulocytes Count 0.060 X10^3/uL (0.0-0.0); Mean Corp Hgb Conc 32.5 g/dL (32-36); Mean Corpuscular Volume 91.2 fL (80-94); Mean Platelet Vol. 10.4 fl (6.2-12.0); NRBC Flagged by Analyzer 0 % (0-5); Platelet Count 281 K/mm3 (150-450); RBC Distribution Width CV 13.7 % (11.6-14.6); RBC Distribution Width SD 45.5 fl (35.1-43.9); Red Blood Count 4.65 M/mm3 (4.6-6.2); White Blood Count 9.5 K/mm3 (4.4-11.0)
[2024-10-28 11:05] LABS: AST(SGOT) 37 U/L (<=37); Alanine Aminotransfer ALT/SGPT 33 U/L (<=46); Albumin, Serum 4.3 g/dL (3.4-4.8); Alkaline Phosphatase 86 U/L (40-129); Anion Gap 11 (5-15); BUN 24 mg/dL (4-19); BUN/Creat Ratio 18.3 RATIO (10-20); Calcium,Total 9.4 mg/dL (7.6-11.0); Carbon Dioxide 23.0 mmol/L (21.0-32.0); Chloride 104 mmol/L (98-108); Globulin 3.2 g/dL (2.2-4.2); Glucose 170 mg/dL (70-99); PSA,Total - Annual Screen 0.51 ng/mL (0.02-4.00); Potassium 5.3 mmol/L (3.3-5.1)
== END | disposition home or self-care (01) ==
LOC: MFPLAB 09:31
PROVIDERS: PCP Family Medicine; Referring Provider Family Medicine; Visit Provider Family Medicine
DX: I48.91 Unspecified atrial fibrillation (principal); E11.9 Type 2 diabetes mellitus without complications; Z12.5 Encounter for screening for malignant neoplasm of prostate
CPT/HCPCS: 36415; 80053; 83036; 84153; 84443; 85025; G0103

== ENCOUNTER → 2024-11-14 | Outpatient (CLI) | payer MEDICARE, SELFPAY ==
--- NOTE | 2024-11-14 10:22 | RAD_ITS ---
PROCEDURE: CHEST PA AND LATERAL 11/14/2024 REASON FOR EXAM: DYSPNEA COPD. TECHNIQUE: Procedure Code: RADCXR Modality: DX Procedure: CHEST PA AND LATERAL COMPARISON: None FINDINGS: Hardware: None Heart: The heart size is normal. Atherosclerotic calcification of the aortic arch. Mediastinum: The mediastinal contour is unremarkable. Lungs: Mild increased interstitial markings at the lung bases suggestive of possible atelectasis and/or scarring. Minimal increased markings in the lingula segment of the left upper lobe. Radiographic follow-up recommended. Bones: Degenerative changes are identified within the thoracic spine. RAD/Chest PA and Lateral IMPRESSION: Mild increased interstitial markings at the lung bases well as in the lingular segment of the left upper lobe. This may represent either scarring and/or atelectasis. Radiographic follow-up recommend ed. Reading Location: [place] [id number]
[2024-11-14 11:37] LABS: Pro- Brain NATRIURETIC PEPTIDE 1730 pg/mL (<=900)
--- NOTE | 2024-11-14 14:43 | ECHOD_ITS ---
Reason For Study Reason For Study: DYSPNEA Procedure This was a 2D Doppler, Color Flow transthoracic echocardiogram. Unable to do RV Strain due to arrhythmia. Exam performed in department. Left Ventricle Normal LV size. Left ventricular systolic function is normal. The left ventricular ejection fraction is 65 %. Unable to assess diastolic dysfunction due to arrhythmia. No regional wall motion abnormalities noted. Right Ventricle Normal right ventricle. Normal systolic function. Unable to perform RV strain due to arrhythmia. Atria The left and right atria are normal. Mitral Valve The mitral valve is structurally normal. No prolapse or stenosis seen. Moderate (2+) mitral valve insufficiency. Tricuspid Valve Normal tricuspid valve. Mild to moderate (1-2+) tricuspid valve insufficiency. Pulmonary artery systolic pressure is 51 mmHg. Aortic Valve Trisinus/trileaflet aortic valve. Mild focal aortic valve calcification. Mild (1+) aortic valve insufficiency. Pulmonic Valve Normal pulmonic valve. Great Vessels Normal sized aortic root. Pericardium/Pleural No pericardial effusion. MMode/2D Measurements & Calculations LVIDd: 3.4 cm IVSd: 1.1 cm LVOT diam: 2.0 cm LVIDs: 2.3 cm LVPWd: 1.1 cm LVOT area: 3.2 cm2 RVDd: 4.3 cm FS: 33.3 % asc Aorta Diam: 3.6 cm LAV(MOD-bp): 48.7 ml LVAd ap4: 19.3 cm2 LAV(MOD-bp) Indexed: 22.5 ml/m2 LVLd ap4: 7.1 cm LAV(MOD-sp2): 46.9 ml EDV(MOD-sp4): 43.3 ml LAV(MOD-sp4): 51.1 ml EDV(sp4-el): 44.4 ml LVAs ap4: 10.0 cm2 LVLs ap4: 6.1 cm ESV(MOD-sp4): 14.4 ml ESV(sp4-el): 14.0 ml EF(MOD-sp4): 66.8 % EF(sp4-el): 68.4 % LVAd ap2: 21.3 cm2 SV(MOD-sp4): 28.9 ml SV(MOD-sp2): 37.3 ml LVLd ap2: 7.5 cm SI(MOD-sp4): 13.4 ml/m2 SI(MOD-sp2): 17.2 ml/m2 EDV(MOD-sp2): 49.3 ml EDV(sp2-el): 51.1 ml LVAs ap2: 9.2 cm2 LVLs ap2: 6.2 cm ESV(MOD-sp2): 12.0 ml ESV(sp2-el): 11.5 ml EF(MOD-sp2): 75.6 % SV(sp4-el): 30.3 ml Ao sinus diam: 3.[address] Junction: 2.6 cm LA dimension(2D): 3.2 cm LA A4 area: 20.4 cm2 RA A4 area: 13.0 cm2 TAPSE: 1.7 cm Time Measurements MV dec time: 0.15 sec Doppler Measurements & Calculations MV E max clayton: 113.9 cm/sec Lat Peak E' Clayton: 12.7 cm/sec Med Peak E' Clayton: 7.0 cm/sec E/E' lat: 9.0 E/E' med: 16.2 Ao V2 max: 130.1 cm/sec AI max clayton: 338.3 cm/sec LV V1 max: 114.8 cm/sec Ao max P.9 mmHg AI max P.8 mmHg LV V1 max P.3 mmHg Ao V2 mean: 92.7 cm/sec AI dec slope: 151.2 cm/sec2 LV V1 mean P.5 mmHg Ao mean P.0 mmHg AI P1/2t: 655.3 msec LV V1 mean: 71.7 cm/sec Ao V2 VTI: 26.6 cm LV V1 VTI: 21.7 cm AV (velocity ratio): 0.81 JB(I,D): 2.6 cm2 JB(V,D): 2.8 cm2 SV(LVOT): 69.6 ml PA V2 max: 94.2 cm/sec TR max clayton: 299.9 cm/sec TR max P.1 mmHg ECHO/Echo Complete Interpretation Summary The left ventricular ejection fraction is 65 %. Unable to assess diastolic dysfunction due to arrhythmia. Moderate (2+) mitral valve insufficiency. Mild to moderate (1-2+) tricuspid valve insufficiency. Pulmonary artery systolic pressure is 51 mmHg. Mild (1+) aortic valve insufficiency. Ordering Physician: Torin Mercado V Referring Physician: Remy Mallory Performed By: Danae Louise RDCS
== END | disposition home or self-care (01) ==
PROVIDERS: PCP Family Medicine; Referring Provider Internal Medicine Pulmonary Disease; Visit Provider Internal Medicine Pulmonary Disease
DX: I48.91 Unspecified atrial fibrillation (principal); R06.00 Dyspnea, unspecified
CPT/HCPCS: 36415; 71046; 83880; 93306

== ENCOUNTER → 2024-11-17 | Outpatient (CLI) | payer MEDICARE, SELFPAY ==
[2024-11-17 11:26] LABS: Pro- Brain NATRIURETIC PEPTIDE 1489 pg/mL (<=900)
--- OUTSIDE RECORDS SUMMARY | 2024-11-17 13:04 | XMS RPT_ITS | CCD ---
Author Organization [facility] Care Team Providers Care Dictaphone Typist Name Role Phone REMY YANCEY Unavailable Unavailable REMY YANCEY Unavailable Unavailable Mohamud BRUNO, Dr. Alberto Primary Care Provider Mohamud BRUNO, Dr. Alberto Attending Provider [phone] Mohamud BRUNO, Dr. Alberto Referring Provider Remy Yancey Primary Care Unavailable Annie Chan Attending Unavailable Mohamud, Remy Primary Care Unavailable Sibilia, Torin Looney Attending Unavailable Sibilia, Torin Looney Referring Unavailable Yancey, Remy Primary Care Unavailable SibiliaTorin V Attending Unavailable Yancey, Remy Primary Care Unavailable Yancey, Remy Attending Unavailable Yancey, Remy Referring Unavailable Yancey, Remy Referring Unavailable Yancey, Remy Primary Care Unavailable Yancey, Remy Attending Unavailable Yancey, Remy Referring Unavailable Yancey, Remy Primary Care Unavailable Yancey, Remy Attending Unavailable Yancey, Remy Primary Care Unavailable Yancey, Remy Attending Unavailable Medications Current Medications Medication Drug Class(es) Dates Sig (Normalized) Sig (Original) amLODIPine 2.5 mg oral tablet (6 sources) Dihydropyridine Calcium Channel Adebayo Start: 06-25-2018 take 1 tablet by mouth at bedtime Amlodipine 2.5 mg tablet Active 2.5 mg PO AT BEDTIME June 25, 2018 12:00am calcium carbonate 1500 mg oral tablet (6 sources) Start: 06-25-2018 take 1 tablet by mouth once daily Calcium Carbonate 600 mg calcium (1,500 mg) tablet Active 600 mg PO DAILY June 25, 2018 12:00am 3 ml insulin glargine 100 unt/ml pen injector (6 sources) Insulin Analog Start: 06-29-2018 Insulin Glargine (Lantus (Bkc)) 100 UNITS/ML insulin pen Active 50 U SC AT BEDTIME June 29, 2018 12:00am Start: 06-29-2018 Insulin Glargi ne (Lantus (Bkc)) 100 UNITS/ML insulin pen Active 50 UNITS SC AT BEDTIME June 29, 2018 12:00am 3 ml insulin lispro 100 unt/ml cartridge (6 sources) Insulin Analog Start: 06-29-2018 inject 30 [IU] by subcutaneous injection three to four times daily at bedtime Insulin Lispro (Humalog) 100 UNIT/ML cartridge Active 0 U SQ BEFORE MEALS AND AT BEDTIME June 29, 2018 12:00am 30 units 3-4 times per day sliding scale metFORMIN hydrochloride 500 mg oral tablet (6 sources) Biguanide Start: 06-25-2018 take 1 tablet by mouth at bedtime Metformin 500 mg tablet Active 500 mg PO AT BEDTIME June 25, 2018 12:00am multivitamin capsule (3 sources) Start: 06-25-2018 take 1 capsule by mouth once daily multivitamin capsule Active 1 CAP PO DAILY June 24, 2018 11:00pm Start: 06-25-2018 take 1 capsule by mo uth once daily multivitamin capsule Active 1 CAP PO DAILY June 25, 2018 12:00am Multivitamin capsule (3 sources) Start: 06-25-2018 Multivitamin c apsule Active 1 NMA PO DAILY June 25, 2018 12:00am [place]-3 Fatty Acids (Fish Oil Concentrate) 1,000 mg capsule (6 sources) Start: 06-25-2018 take 1 capsule by mouth once daily [place]-3 Fatty Acids (Fish Oil Concentrate) 1,000 mg capsule Active 1000 mg PO DAILY June 25, 2018 12:00am Start: 06-25-2018 take 1 capsule by mo uth once daily [place]-3 Fatty Acids (Fish Oil Concentrate) 1,000 mg capsule Active 1000 MG PO DAILY June 24, 2018 11:00pm Start: 06-25-2018 take 1 capsule by mo uth once daily [place]-3 Fatty Acids (Fish Oil Concentrate) 1,000 mg capsule Active 1000 MG PO DAILY June 25, 2018 12:00am polyethylene glycol 3350 425417 mg / potassium chloride 2970 mg / sodium bicarbonate 6740 mg / sodium chloride 5860 mg / sodium sulfate 17480 mg powder for oral solution (6 sources) Osmotic Laxative Start: 06-28-2018 take 4000 mL by mouth once Peg 3350-Electrolytes 236-22.74-6.74 -5.86 gram recon soln Active 4000 mL PO ONCE 4000 0 June 28, 2018 12:00am until fecal effluent is clear; do not exceed a total volume of 4000 mL Start: 06-28-2018 take 4000 mL by mouth once Peg 3350-Electrolytes Active 4000 ML PO ONCE 4000 June 28, 2018 12:00am until fecal effluent is clear; do not exceed a total volume of 4000 mL rosuvastatin calcium 40 mg oral tablet (6 sources) HMG-CoA Reductase Inhibitor Start: 06-25-2018 take 1 tablet by mouth at bedtime Rosuvastatin (Crestor) 40 mg tablet Active 40 mg PO AT BEDTIME June 25, 2018 12:00am tacrolimus 1 mg oral capsule (6 sources) Calcineurin Inhibitor Immunosuppressant Start: 06-25-2018 take 1 capsule by mouth every twelve hours Tacrolimus (Prograf) 1 mg capsule Active 1 mg PO Q12H June 25, 2018 12:00am Problems Problem Classification Problem Date Documented Da te Episodic/Chronic Cardiac dysrhythmias (1 source) Unspecified atrial fibrillation; Translations: [Unspecified atrial fibrillation] Onset: 11-04-2024 Chronic Diabetes mellitus without complication (1 source) Type 2 diabetes mellitus without complications; Translations: [Type 2 diabetes mellitus without complications] Onset: 08-16-2024 Chronic Essential hypertension (1 source) Essential (primary) hypertension; Translations: [Essential (primary) hypertension] Onset: 07-20-2024 Chronic Other lower respiratory disease (1 source) Dyspnea, unspecified; Translations: [Dyspnea, unspecified] Onset: 11-15-2024 Episodic Results Test Name Value Interpretation Reference Range Facility Chest PA and Lateralon 11-14 Chest PA and Lateral [facility] Imaging Services [address] [place] [id number] Chest PA and Lateral MR#: [id number] Acct: [id number] Name: ALICE COHN Rep #: [id number] : 1950 M 73 From: Kevin martinez MD PCP: Dr. Remy Yancey MD Status: PRE CLI Study: Chest PA and Lateral Date of Exam: 11/14/24 Exam# [id number] Ordering Dr: Torin Mercado MD PROCEDURE: CHEST PA AND LATERAL 11/14/2024 REASON FOR EXAM: DYSPNEA COPD. TECHNIQUE: Procedure Code: RADCXR Modality: DX Procedure: CHEST PA AND LATERAL COMPARISON: None FINDINGS: Hardware: None Heart: The heart size is normal. Atherosclerotic calcification of the aortic arch. Mediastinum: The mediastinal contour is unremarkable. Lungs: Mild increased interstitial markings at the lung bases suggestive of possible atelectasis and/or scarring. Minimal increased markings in the lingula segment of the left upper lobe. Radiographic follow-up recommended. Bones: Degenerative changes are identified within the thoracic spine. RAD/Chest PA and Lateral IMPRESSION: Mild increased interstitial markings at the lung bases well as in the lingular segment of the left upper lobe. This may represent either scarring and/or atelectasis. Radiographic follow-up recommended. Reading Location: [place] [address] CC: Dr. Remy Yancey MD; Dr. Torin Mercado MD Field Crop Farmer: Signed Normal [facility] Echo Completeon 11-14-2024 Echo Complete [facility] [address] [place] [address] Echo Complete 11/14/24 1446 MR#: [id number] Acct: [id number] Name: ALICE COHN Rep #: [id number] : 1950 73 From: Annie Chan MD Attending Dr: Dr. Torin Mercado MD Status: REG CLI Ordering Dr: Torin Mercado MD Date: 11/14/24 Location: [facility] Sex: M C Admitted: Reason For Study Reason For Study: DYSPNEA Procedure This was a 2D Doppler, Color Flow transthoracic echocardiogram. Unable to do RV Strain due to arrhythmia. Exam performed in department. Left Ventricle Normal LV size. Left ventricular systolic function is normal. The left ventricular ejection fraction is 65 %. Unable to assess diastolic dysfunction due to arrhythmia. No regional wall motion abnormalities noted. Right Ventricle Normal right ventricle. Normal systolic function. Unable to perform RV strain due to arrhythmia. Atria The left and right atria are normal. Mitral Valve The mitral valve is structurally normal. No prolapse or stenosis seen. Moderate (2+) mitral valve insufficiency. Tricuspid Valve Normal tricuspid valve. Mild to moderate (1-2+) tricuspid valve insufficiency. Pulmonary artery systolic pressure is 51 mmHg. Aortic Valve Trisinus/trileaflet aortic valve. Mild focal aortic valve calcification. Mild (1+) aortic valve insufficiency. Pulmonic Valve Normal pulmonic valve. Great Vessels Normal sized aortic root. Pericardium/Pleural No pericardial effusion. MMode/2D Measurements Calculations LVIDd: 3.4 cm IVSd: 1.1 cm LVOT diam: 2.0 cm LVIDs: 2.3 cm LVPWd: 1.1 cm LVOT area: 3.2 cm2 RVDd: 4.3 cm FS: 33.3 % asc Aorta Diam: 3.6 cm LAV(MOD-bp): 48.7 ml LVAd ap4: 19.3 cm2 LAV(MOD-bp) Indexed: 22.5 ml/m2 LVLd ap4: 7.1 cm LAV(MOD-sp2): 46.9 ml EDV(MOD-sp4): 43.3 ml LAV(MOD-sp4): 51.1 ml EDV(sp4-el): 44.4 ml LVAs ap4: 10.0 cm2 LVLs ap4: 6.1 cm ESV(MOD-sp4): 14.4 ml ESV(sp4-el): 14.0 ml EF(MOD-sp4): 66.8 % EF(sp4-el): 68.4 % LVAd ap2: 21.3 cm2 SV(MOD-sp4): 28.9 ml SV(MOD-sp2): 37.3 ml LVLd ap2: 7.5 cm SI(MOD-sp4): 13.4 ml/m2 SI(MOD-sp2): 17.2 ml/m2 EDV(MOD-sp2): 49.3 ml EDV(sp2-el): 51.1 ml LVAs ap2: 9.2 cm2 LVLs ap2: 6.2 cm ESV(MOD-sp2): 12.0 ml ESV(sp2-el): 11.5 ml EF(MOD-sp2): 75.6 % SV(sp4-el): 30.3 ml Ao sinus diam: 3.[address] Junction: 2.6 cm LA dimension(2D): 3.2 cm LA A4 area: 20.4 cm2 RA A4 area: 13.0 cm2 TAPSE: 1.7 cm Time Measurements MV dec time: 0.15 sec Doppler Measurements Calculations MV E max clayton: 113.9 cm/sec Lat Peak E' Clayton: 12.7 cm/sec Med Peak E' Clayton: 7.0 cm/sec E/E' lat: 9.0 E/E' med: 16.2 Ao V2 max: 130.1 cm/sec AI max clayton: 338.3 cm/sec LV V1 max: 114.8 cm/sec Ao max P.9 mmHg AI max P.8 mmHg LV V1 max P.3 mmHg Ao V2 mean: 92.7 cm/sec AI dec slope: 151.2 cm/sec2 LV V1 mean P.5 mmHg Ao mean P.0 mmHg AI P1/2t: 655.3 msec LV V1 mean: 71.7 cm/sec Ao V2 VTI: 26.6 cm LV V1 VTI: 21.7 cm AV (velocity ratio): 0.81 JB(I,D): 2.6 cm2 JB(V,D): 2.8 cm2 SV(LVOT): 69.6 ml PA V2 max: 94.2 cm/sec TR max clayton: 299.9 cm/sec TR max P.1 mmHg ECHO/Echo Complete Interpretation Summary The left ventricular ejection fraction is 65 %. Unable to assess diastolic dysfunction due to arrhythmia. Moderate (2+) mitral valve insufficiency. Mild to moderate (1-2+) tricuspid valve insufficiency. Pulmonary artery systolic pressure is 51 mmHg. Mild (1+) aortic valve insufficiency. Ordering Physician: Torin Mercado V Referring Physician: Remy Yancey Performed By: Danae Louise RDCS 11/15/24945 Date Annie Chan MD CC: Dr. Remy Yancey MD; Dr. Torin Mercado MD Date Dictated: 11/14/241445 Date Transcribed: 11/15/24945 Field Crop Farmer: Signed Normal [facility] Pro- Brain NATRIURETIC PEPTI Jack 11-14-2024 Natriuretic peptide B (Bld) [Mass/Vol] 1730 pg/mL High <=900 [facility] Comment on above: Result Comment: Hear t Failure Unlikely: < 300 pg/mL Heart Failure Likely < 50 Years: > 450 pg/mL 50-75 Years: > 900 pg/mL >75 Years: > 1800 pg/mL Performed By: #### L 100.0100, L501.9985, L500.4050, L501.9520, L501.9910 #### [facility] [address] [place], [address] Absolute lymphocyte countOrd ered By: Remy Yancey on 10-28-2024 Lymphocytes Auto (Unsp spec) [#/Vol] 2.83 10*3/uL 0.83-4.51 [facility] Absolute neutrophil countOrd ered By: Remy Yancey on 10-28-2024 Neutrophils (Bld) [#/Vol] 5.3 10*3/uL 2.0-7.7 [facility] Anion gap in Serum or Plasma Ordered By: Remy Yancey on 10-28-2024 Anion gap [Moles/Vol] 11 mmol/L 5-15 [facility] Automated lymphocyte count a s percentage of total leukocytesOrdered By: Remy Yancey on 10-28-2024 Lymphocytes/100 WBC Auto (Unsp spec) 29.8 % 19-41 [facility] BUN/creatinine ratioOrdered By: Remy Yancey on 10-28-2024 Urea nitrogen/Creatinine [Mass ratio] 18.3 mg/mg 10-20 [facility] Basophil percentageOrdered B y: Remy Yancey on 10-28-2024 Basophils/100 WBC (Bld) 0.6 % 0-1 [facility] Bilirubin, totalOrdered By: Remy Yancey on 10-28-2024 Bilirubin [Mass/Vol] 0.43 mg/dL 0.00-1.30 [facility] CBC W/Diff, Automatedon 10-01 Absolute Lymph 2.83 X10 3/uL Normal 0.83-4.51 [facility] Comment on above: Performed By: #### L 100.0100, L501.9985, L500.4050, L501.9520, L501.9910 #### [facility] [address] [place], [address] Absolute Neut 5.3 X10 3/uL Normal 2.0-7.7 [facility] Comment on above: Performed By: #### L 100.0100, L501.9985, L500.4050, L501.9520, L501.9910 #### [facility] [address] [place], [address] Basophils/100 WBC (Bld) 0.6 % Normal 0-1 [facility] Comment on above: Performed By: #### L 100.0100, L501.9985, L500.4050, L501.9520, L501.9910 #### [facility] [address] [place], [address] Eosinophils/100 WBC (Bld) 2.3 % Normal 0-5 [facility] Comment on above: Performed By: #### L 100.0100, L501.9985, L500.4050, L501.9520, L501.9910 #### [facility] [address] [place], [address] Erythrocyte distribution width (RBC) [Ratio] 13.7 % Normal 11.6-14.6 [facility] Comment on above: Performed By: #### L 100.0100, L501.9985, L500.4050, L501.9520, L501.9910 #### [facility] [address] [place], [address] Hematocrit (Bld) [Volume fraction] 42.4 % Normal 40-54 [facility] Comment on above: Performed By: #### L 100.0100, L501.9985, L500.4050, L501.9520, L501.9910 #### [facility] [address] [place], [address] Hemoglobin (Bld) [Mass/Vol] 13.8 g/dL Normal 13.0-16.5 [facility] Comment on above: Performed By: #### L 100.0100, L501.9985, L500.4050, L501.9520, L501.9910 #### [facility] [address] [place], [address] IG% 0.600 Normal 0.0-0.9 [facility] Comment on above: Result Comment: IG% - Immature Granulocytes (promyelocytes, myelocytes and metamyelocytes) > 1% indicates that a LEFT SHIFT is Present. Performed By: #### L 100.0100, L501.9985, L500.4050, L501.9520, L501.9910 #### [facility] [address] [place], [address] Lymphocytes/100 WBC (Bld) 29.8 % Normal 19-41 [facility] Comment on above: Performed By: #### L 100.0100, L501.9985, L500.4050, L501.9520, L501.9910 #### [facility] [address] [place], [address] MCH (RBC) [Entitic mass] 29.7 pg Normal 27.0-32.0 [facility] Comment on above: Performed By: #### L 100.0100, L501.9985, L500.4050, L501.9520, L501.9910 #### [facility] [address] [place], [address] MCHC (RBC) [Mass/Vol] 32.5 g/dL Normal 32-36 [facility] Comment on above: Performed By: #### L 100.0100, L501.9985, L500.4050, L501.9520, L501.9910 #### [facility] [address] [place], [address] MCV (RBC) [Entitic vol] 91.2 fL Normal 80-94 [facility] Comment on above: Performed By: #### L 100.0100, L501.9985, L500.4050, L501.9520, L501.9910 #### [facility] [address] [place], [address] Monocytes/100 WBC (Bld) 10.4 % High 0-10 [facility] Comment on above: Performed By: #### L 100.0100, L501.9985, L500.4050, L501.9520, L501.9910 #### [facility] [address] [place], [address] Neutrophils/100 WBC (Bld) 56.3 % Normal 47-70 [facility] Comment on above: Performed By: #### L 100.0100, L501.9985, L500.4050, L501.9520, L501.9910 #### [facility] [address] [place], [address] Nucleated RBC (Bld) [#/Vol] 0 10*3/uL Normal 0-5 [facility] Comment on above: Performed By: #### L 100.0100, L501.9985, L500.4050, L501.9520, L501.9910 #### [facility] [address] [place], [address] Platelet mean volume (Bld) [Entitic vol] 10.4 fL Normal 6.2-12.0 [facility] Comment on above: Performed By: #### L 100.0100, L501.9985, L500.4050, L501.9520, L501.9910 #### [facility] [address] [place], [address] Platelets (Bld) [#/Vol] 281 10*3/uL Normal 150-450 [facility] Comment on above: Performed By: #### L 100.0100, L501.9985, L500.4050, L501.9520, L501.9910 #### [facility] [address] [place], [address] RBC (Bld) [#/Vol] 4.65 10*6/uL Normal 4.6-6.2 [facility] Comment on above: Performed By: #### L 100.0100, L501.9985, L500.4050, L501.9520, L501.9910 #### [facility] [address] [place], [address] RDW SD 45.5 fl High 35.1-43.9 [facility] Comment on above: Performed By: #### L 100.0100, L501.9985, L500.4050, L501.9520, L501.9910 #### [facility] [address] [place], [address] WBC (Bld) [#/Vol] 9.5 10*3/uL Normal 4.4-11.0 [facility] Comment on above: Performed By: #### L 100.0100, L501.9985, L500.4050, L501.9520, L501.9910 #### [facility] [address] [place], [address] Carbon dioxide, total [Moles /volume] in Central venous bloodOrdered By: Remy Yancey on 10-28-2024 CO2 [Moles/Vol] 23.0 mmol/L 21.0-32.0 [facility] Chloride assayOrdered By: Clif Yancey on 10-28-2024 Chloride [Moles/Vol] 104 mmol/L 98-108 [facility] Comprehensive Metabolic Prof ilon 10-28-2024 Albumin [Mass/Vol] 4.3 g/dL Normal 3.4-4.8 [facility] Comment on above: Performed By: #### L 100.0100, L501.9985, L500.4050, L501.9520, L501.9910 #### [facility] [address] [place], [address] Albumin/Globulin [Mass ratio] 1.4 {ratio} Normal 0.9-2.4 [facility] Comment on above: Performed By: #### L 100.0100, L501.9985, L500.4050, L501.9520, L501.9910 #### [facility] [address] [place], [address] ALK PHOS 86 U/L Normal 40-129 [facility] Comment on above: Performed By: #### L 100.0100, L501.9985, L500.4050, L501.9520, L501.9910 #### [facility] [address] [place], [address] ALT [Catalytic activity/Vol] 33 U/L Normal <=46 [facility] Comment on above: Performed By: #### L 100.0100, L501.9985, L500.4050, L501.9520, L501.9910 #### [facility] [address] [place], [address] AST [Catalytic activity/Vol] 37 U/L Normal <=37 [facility] Comment on above: Performed By: #### L 100.0100, L501.9985, L500.4050, L501.9520, L501.9910 #### [facility] [address] [place], [address] Bilirubin [Mass/Vol] 0.43 mg/dL Normal 0.00-1.30 [facility] Comment on above: Performed By: #### L 100.0100, L501.9985, L500.4050, L501.9520, L501.9910 #### [facility] [address] [place], [address] BUN/CRE 18.3 RATIO Normal 10-20 [facility] Comment on above: Performed By: #### L 100.0100, L501.9985, L500.4050, L501.9520, L501.9910 #### [facility] [address] [place], [address] Calcium [Mass/Vol] 9.4 mg/dL Normal 7.6-11.0 [facility] Comment on above: Performed By: #### L 100.0100, L501.9985, L500.4050, L501.9520, L501.9910 #### [facility] [address] [place], [address] Chloride [Moles/Vol] 104 mmol/L Normal 98-108 [facility] Comment on above: Performed By: #### L 100.0100, L501.9985, L500.4050, L501.9520, L501.9910 #### [facility] [address] [place], [address] CO2 [Moles/Vol] 23.0 mmol/L Normal 21.0-32.0 [facility] Comment on above: Performed By: #### L 100.0100, L501.9985, L500.4050, L501.9520, L501.9910 #### [facility] [address] [place], [address] Creatinine [Mass/Vol] 1.32 mg/dL High 0.70-1.20 [facility] Comment on above: Performed By: #### L 100.0100, L501.9985, L500.4050, L501.9520, L501.9910 #### [facility] [address] [place], [address] GAP 11 Normal 5-15 [facility] Comment on above: Performed By: #### L 100.0100, L501.9985, L500.4050, L501.9520, L501.9910 #### [facility] [address] [place], [address] GFR/1.73 sq M.predicted among non-blacks MDRD (S/P/Bld) [Vol rate/Area] 58 mL/min/{1.73_m2} Low >60 [facility] Comment on above: Result Comment: mL/m in/1.73m2 CKD-EPI Creatinine Equation (2020) Performed By: #### L 100.0100, L501.9985, L500.4050, L501.9520, L501.9910 #### [facility] [address] [place], [address] Globulin (S) [Mass/Vol] 3.2 g/dL Normal 2.2-4.2 [facility] Comment on above: Performed By: #### L 100.0100, L501.9985, L500.4050, L501.9520, L501.9910 #### [facility] [address] [place], [address] Glucose [Mass/Vol] 170 mg/dL High 70-99 [facility] Comment on above: Performed By: #### L 100.0100, L501.9985, L500.4050, L501.9520, L501.9910 #### [facility] [address] [place], [address] Potassium [Moles/Vol] 5.3 mmol/L High 3.3-5.1 [facility] Comment on above: Performed By: #### L 100.0100, L501.9985, L500.4050, L501.9520, L501.9910 #### [facility] [address] [place], [address] Sodium [Moles/Vol] 138 mmol/L Normal 133-145 [facility] Comment on above: Performed By: #### L 100.0100, L501.9985, L500.4050, L501.9520, L501.9910 #### [facility] [address] [place], [address] T PROT 7.5 g/dL Normal 5.9-8.4 [facility] Comment on above: Performed By: #### L 100.0100, L501.9985, L500.4050, L501.9520, L501.9910 #### [facility] [address] [place], [address] Urea nitrogen [Mass/Vol] 24 mg/dL High 4-19 [facility] Comment on above: Performed By: #### L 100.0100, L501.9985, L500.4050, L501.9520, L501.9910 #### [facility] [address] [place], [address] Eosinophil percentageOrdered By: Remy Yancey on 10-28-2024 Eosinophils/100 WBC (Bld) 2.3 % 0-5 [facility] Erythrocyte distribution wid th ratioOrdered By: Remy Yancey on 10-28-2024 Erythrocyte distribution width (RBC) [Ratio] 13.7 % 11.6-14.6 [facility] Erythrocyte distribution wid th standard deviationOrdered By: Remy Yancey on 10-28-2024 Erythrocyte distribution width (RBC) [Ratio] 45.5 fl High 35.1-43.9 [facility] Glomerular filtration rate ( GFR) estimation/1.73 sq m using serum, plasma, or whole bOrdered By: Remy Yancey on 10-28-2024 GFR/1.73 sq M.predicted among non-blacks MDRD (S/P/Bld) [Vol rate/Area] 58 mL/min/{1.73_m2} Low >60 [facility] Comment on above: mL/min/1.73m2 CKD-EP I Creatinine Equation (2020) Hematocrit Auto (Bld) [Volum e fraction]Ordered By: Remy Yancey on 10-28-2024 Hematocrit (Bld) [Volume fraction] 42.4 % 40-54 [facility] Hemoglobin A1con 10-28-2024 HbA1c (Bld) [Mass fraction] 7.5 % High <=5.6 [facility] Comment on above: Result Comment: Norm al < 5.7 % Prediabetic 5.7 - 6.4 % Diabetic >or= 6.5 % Please note range changes. Performed By: #### L 100.0100, L501.9985, L500.4050, L501.9520, L501.9910 #### [facility] [address] [place], [address] Hemoglobin A1c percentageOrd ered By: Remy Yancey on 10-28-2024 HbA1c (Bld) [Mass fraction] 7.5 % High <5.7 [facility] Comment on above: Normal < 5.7 % Predi abetic 5.7 - 6.4 % Diabetic >or= 6.5 % Please note range changes. Hemoglobin measurementOrdere d By: Remy Yancey on 10-28-2024 Hemoglobin (Bld) [Mass/Vol] 13.8 g/dL 13.0-16.5 [facility] Immature granulocytes/100 WB C Auto (Bld)Ordered By: Remy Yancey on 10-28-2024 Immature granulocytes/100 WBC (Bld) 0.600 % 0.0-0.9 [facility] Comment on above: IG% - Immature Granu locytes (promyelocytes, myelocytes and metamyelocytes) > 1% indicates that a LEFT SHIFT is Present. Laboratory - Chemistry and C hemistry - challengeOrdered By: Remy Yancey on 10-28-2024 AST [Catalytic activity/Vol] 37 U/L <38 [facility] MCV (mean corpuscular volume ) determinationOrdered By: Remy Yancey on 10-28-2024 MCV (RBC) [Entitic vol] 91.2 fL 80-94 [facility] Mean corpuscular hemoglobin (MCH) determinationOrdered By: Remy Yancey on 10-28-2024 MCH (RBC) [Entitic mass] 29.7 pg 27.0-32.0 [facility] Mean corpuscular hemoglobin concentration (MCHC) determinationOrdered By: Remy Yancey on 10-28-2024 MCHC (RBC) [Mass/Vol] 32.5 g/dL 32-36 [facility] Mean platelet volume determi nationOrdered By: Remy Yancey on 10-28-2024 Platelet mean volume (Bld) [Entitic vol] 10.4 fL 6.2-12.0 [facility] Monocyte percentageOrdered B y: Remy Yancey on 10-28-2024 Monocytes/100 WBC (Bld) 10.4 % High 0-10 [facility] Neutrophil percentageOrdered By: Remy Yancey on 10-28-2024 Neutrophils/100 WBC (Bld) 56.3 % 47-70 [facility] Nucleated red blood cell per centageOrdered By: Remy Yancey on 10-28-2024 Nucleated RBC/100 WBC (Bld) [Ratio] 0 % 0-5 [facility] PSA,Total - Annual Screenon 10-28-2024 PSA,TOT SCREEN 0.51 ng/mL Normal 0.02-4.00 [facility] Comment on above: Result Comment: This test was performed using the Igor Diagnostics tPSA method. Measured values of a patient??sample can vary depending on the testing procedure used. PSA values determined on patient samples by different testing procedures cannot be used interchangeably. If there is a change in PSA assays while monitoring therapy, sequential testing should be performed to confirm baseline values. Performed By: #### L 100.0100, L501.9985, L500.4050, L501.9520, L501.9910 #### [facility] [address] [place], [address] Platelet countOrdered By: Clif Yancey on 10-28-2024 Platelets (Bld) [#/Vol] 281 10*3/uL 150-450 [facility] Potassium measurement (mass/ volume)Ordered By: Remy Yancey on 10-28-2024 Potassium (Unsp spec) [Mass/Vol] 5.3 mmol/L High 3.3-5.1 [facility] RBC Auto (Bld) [#/Vol]Ordere d By: Remy Yancey on 10-28-2024 RBC (Bld) [#/Vol] 4.65 10*6/uL 4.6-6.2 [facility] Serum creatinine measurement (mass/volume)Ordered By: Remy Yancey on 10-28-2024 Creatinine [Mass/Vol] 1.32 mg/dL High 0.70-1.20 [facility] Serum globulin measurementOr dered By: Remy Yancey on 10-28-2024 Globulin (S) [Mass/Vol] 3.2 g/dL 2.2-4.2 [facility] Serum glucose measurement (m ass/volume)Ordered By: Remy Yancey on 10-28-2024 Glucose [Mass/Vol] 170 mg/dL High 70-99 [facility] Serum or plasma alanine carlson otransferase (ALT) measurementOrdered By: Remy Yancey on 10-28-2024 ALT [Catalytic activity/Vol] 33 U/L <47 [facility] Serum or plasma albumin narendra urement (mass/volume)Ordered By: Remy Yancey on 10-28-2024 Albumin [Mass/Vol] 4.3 g/dL 3.4-4.8 [facility] Serum or plasma albumin/glob ulin mass ratioOrdered By: Remy Yancey on 10-28-2024 Albumin/Globulin [Mass ratio] 1.4 {ratio} 0.9-2.4 [facility] Serum or plasma alkaline ej sphatase measurementOrdered By: Remy Yancey on 10-28-2024 ALP [Catalytic activity/Vol] 86 U/L 40-129 [facility] Serum or plasma calcium narendra urement (mass/volume)Ordered By: Remy Yancey on 10-28-2024 Calcium [Mass/Vol] 9.4 mg/dL 7.6-11.0 [facility] Serum or plasma urea nitroge n measurement (mass/volume)Ordered By: Remy Yancey on 10-28-2024 Urea nitrogen [Mass/Vol] 24 mg/dL High 4-19 [facility] Sodium levelOrdered By: Remy Yancey on 10-28-2024 Sodium [Moles/Vol] 138 mmol/L 133-145 [facility] TSH DL <= 0.005 mIU/L QnOrde red By: Remy Yancey on 10-28-2024 TSH Qn 5.310 uIU/mL High 0.300-4.200 [facility] Thyroid Stim Hormone (TSH)on 10-28-2024 TSH 5.310 uIU/mL High 0.300-4.200 [facility] Comment on above: Performed By: #### L 100.0100, L501.9985, L500.4050, L501.9520, L501.9910 #### [facility] [address] [place] [address]. [place], [place], [id number] Total proteinOrdered By: Rosana Yancey on 10-28-2024 Protein [Mass/Vol] 7.5 g/dL 5.9-8.4 [facility] White blood cell (WBC) count Ordered By: Remy Yancey on 10-28-2024 WBC (Bld) [#/Vol] 9.5 10*3/uL 4.4-11.0 [facility] Microalb:Creat Ratio,Random URon 08-23-2024 MALB:CREAT 46.4 mg/g CRE Normal [facility] Comment on above: Result Comment: AMENDED REPORT 08/23/24 1337 MALB:CREAT previously reported as: 464.0 mg/g CRE Performed By: #### L 100.0100, L501.9985, L500.4050, L501.9520, L501.9910 #### [facility] [address] [place], [place], [address] Random urine creatinine narendra urement (mass/volume)Ordered By: Remy Yancey on 08-09-2024 Creatinine Unsp time (U) [Mass/Vol] 59.70 mg/dL 39.00-259.00 [facility] Urine albumin measurement wi detection limit of 20 mg/L or less (mass/volume)Ordered By: Remy Yancey on 08-09-2024 Albumin DL <= 20 mg/L (U) [Mass/Vol] 27.7 mg/L NO RANGE EST. [facility] Tacrolimus (Prograf)on 07-18 Tacrolimus (Bld) [Mass/Vol] 2.5 ng/mL Low 5.0-20.0 [facility] Comment on above: Order Comment: Test( s) [id number] ([id number]), Blood was developed and its performance characteristics determined by [facility]. It has not been cleared or approved by the Food and Drug Administration. Result Comment: Targ et steady state trough concentration for Tacrolimus varies based on type of organ transplant immunosuppressive protocol and other patient specific factors. Tacrolimus trough concentrations should be interpreted in conjunction with clinical assessments of rejection and tolerability. Values obtained with different assay methods cannot be used interchangeably due to differences in assay methods and cross-reactivty with metabolites, nor should correction factors be applied. Therefore, consistent use of one assay for individual patients is recommended. Detection Limit = 0.5 ng/mL Performed by LC-MS/MS technology. Performed at: [address] [id number] Design Engineering Technician: Clark Burch MD, Phone: [phone] Performed By: #### L 500.4100, L500.4050, L3380.1000 #### [facility] [address] [place], [address] Anion gap in Serum or Plasma Ordered By: Remy Yancey on 07-14-2024 Anion gap [Moles/Vol] 13 mmol/L 07-14 [facility] BUN/creatinine ratioOrdered By: Remy Yancey on 07-14-2024 Urea nitrogen/Creatinine [Mass ratio] 11.2 mg/mg 10- [facility] Bilirubin, totalOrdered By: Remy Yancey on 07-14-2024 Bilirubin [Mass/Vol] 0.35 mg/dL 0.00-1.30 [facility] Calculated very low density lipoprotein (VLDL) cholesterol measurementOrdered By: Remy Yancey on 07-14-2024 Calculated very low density lipoprotein (VLDL) cholesterol measurement 43 mg/dL High 5-40 [facility] Carbon dioxide, total [Moles /volume] in Central venous bloodOrdered By: Remy Yancey on 07-14-2024 CO2 [Moles/Vol] 24.9 mmol/L 21.0-32.0 [facility] Chloride assayOrdered By: Clif Yancey on 07-14-2024 Chloride [Moles/Vol] 103 mmol/L 98-108 [facility] Comprehensive Metabolic Prof ilon 07-14-2024 Albumin [Mass/Vol] 4.4 g/dL Normal 3.4-4.8 [facility] Comment on above: Performed By: #### L 500.4100, L500.4050, L3380.1000 #### [facility] [address] [place], [address] Albumin/Globulin [Mass ratio] 1.4 {ratio} Normal 0.9-2.4 [facility] Comment on above: Performed By: #### L 500.4100, L500.4050, L3380.1000 #### [facility] [address] [place], [address] ALK PHOS 87 U/L Normal 40-129 [facility] Comment on above: Performed By: #### L 500.4100, L500.4050, L3380.1000 #### [facility] [address] [place], [address] ALT [Catalytic activity/Vol] 46 U/L Normal <=46 [facility] Comment on above: Performed By: #### L 500.4100, L500.4050, L3380.1000 #### [facility] [address] [place], [address] AST [Catalytic activity/Vol] 68 U/L High <=37 [facility] Comment on above: Performed By: #### L 500.4100, L500.4050, L3380.1000 #### [facility] [address] [place], [address] Bilirubin [Mass/Vol] 0.35 mg/dL Normal 0.00-1.30 [facility] Comment on above: Performed By: #### L 500.4100, L500.4050, L3380.1000 #### [facility] [address] [place], [address] BUN/CRE 11.2 RATIO Normal 10-20 [facility] Comment on above: Performed By: #### L 500.4100, L500.4050, L3380.1000 #### [facility] [address] [place], [address] Calcium [Mass/Vol] 9.6 mg/dL Normal 7.6-11.0 [facility] Comment on above: Performed By: #### L 500.4100, L500.4050, L3380.1000 #### [facility] [address] [place], [address] Chloride [Moles/Vol] 103 mmol/L Normal 98-108 [facility] Comment on above: Performed By: #### L 500.4100, L500.4050, L3380.1000 #### [facility] [address] [place], [address] CO2 [Moles/Vol] 24.9 mmol/L Normal 21.0-32.0 [facility] Comment on above: Performed By: #### L 500.4100, L500.4050, L3380.1000 #### [facility] [address] [place], [address] Creatinine [Mass/Vol] 1.28 mg/dL High 0.70-1.20 [facility] Comment on above: Performed By: #### L 500.4100, L500.4050, L3380.1000 #### [facility] [address] [place], [address] GAP 13 Normal 5-15 [facility] Comment on above: Performed By: #### L 500.4100, L500.4050, L3380.1000 #### [facility] [address] [place], [address] GFR/1.73 sq M.predicted among non-blacks MDRD (S/P/Bld) [Vol rate/Area] 60 mL/min/{1.73_m2} Normal >60 [facility] Comment on above: Result Comment: mL/m in/1.73m2 CKD-EPI Creatinine Equation (2020) Performed By: #### L 500.4100, L500.4050, L3380.1000 #### [facility] [address] [place], [address] Globulin (S) [Mass/Vol] 3.2 g/dL Normal 2.2-4.2 [facility] Comment on above: Performed By: #### L 500.4100, L500.4050, L3380.1000 #### [facility] [address] [place], [address] Glucose [Mass/Vol] 116 mg/dL High 70-99 [facility] Comment on above: Performed By: #### L 500.4100, L500.4050, L3380.1000 #### [facility] [address] [place], [address] Potassium [Moles/Vol] 5.1 mmol/L Normal 3.3-5.1 [facility] Comment on above: Performed By: #### L 500.4100, L500.4050, L3380.1000 #### [facility] [address] [place], [address] Sodium [Moles/Vol] 141 mmol/L Normal 133-145 [facility] Comment on above: Performed By: #### L 500.4100, L500.4050, L3380.1000 #### [facility] [address] [place], [address] T PROT 7.7 g/dL Normal 5.9-8.4 [facility] Comment on above: Performed By: #### L 500.4100, L500.4050, L3380.1000 #### [facility] [address] [place], [address] Urea nitrogen [Mass/Vol] 14 mg/dL Normal 4-19 [facility] Comment on above: Performed By: #### L 500.4100, L500.4050, L3380.1000 #### [facility] [address] [place], [address] Glomerular filtration rate ( GFR) estimation/1.73 sq m using serum, plasma, or whole bOrdered By: Remy Yancey on 07-14-2024 GFR/1.73 sq M.predicted among non-blacks MDRD (S/P/Bld) [Vol rate/Area] 60 mL/min/{1.73_m2} >60 [facility] Comment on above: mL/min/1.73m2 CKD-EP I Creatinine Equation (2020) LDL calc ser/plasOrdered By: Remy Yancey on 07-14-2024 Cholesterol in LDL [Mass/Vol] 37 mg/dL [facility] [facility] Comment on above: Lnfyyhwqim=840-556 m g/dL & Higher Ulsz=011 mg/dL or greater Laboratory - Chemistry and C hemistry - challengeOrdered By: Remy Yancey on 07-14-2024 AST [Catalytic activity/Vol] 68 U/L High <38 [facility] Lipid Profileon 07-14-2024 CHOL:HDL 2.99 Normal [facility] Comment on above: Performed By: #### L 500.4100, L500.4050, L3380.1000 #### [facility] [address] [place], [address] Cholesterol [Mass/Vol] 120 mg/dL Normal <=200 [facility] Comment on above: Result Comment: Chol esterol level, Desirable <200 mg/dL Borderline high cholesterol 200-239 mg/dL High cholesterol >=240 mg/dL Recommendations of the NCEP Adult Treatment Panel for the following risk-cutoff thresholds for the [place] population. Performed By: #### L 500.4100, L500.4050, L3380.1000 #### [facility] [address] [place], [address] Cholesterol in HDL [Mass/Vol] 40 mg/dL Normal [facility] Comment on above: Result Comment: Stacey onal Cholesterol Education Program (NCEP) guidelines: <40 mg/dL: Low HDL-cholesterol (major risk factor for CHD) >= 60 mg/dL: High HDL-cholesterol (negative risk factor for CHD) HDL-cholesterol is affected by a number of factors, e.g. smoking, exercise, hormones, sex and age. Performed By: #### L 500.4100, L500.4050, L3380.1000 #### [facility] [address] [place], [address] Cholesterol in LDL [Mass/Vol] 37 mg/dL Normal [facility] Comment on above: Result Comment: Bord fcipjh=461-682 mg/dL Higher Bgud=356 mg/dL or greater Performed By: #### L 500.4100, L500.4050, L3380.1000 #### [facility] [address] [place], [address] Cholesterol in VLDL [Mass/Vol] 43 mg/dL High 5-40 [facility] Comment on above: Performed By: #### L 500.4100, L500.4050, L3380.1000 #### [facility] [address] [place], [address] Triglyceride [Mass/Vol] 213 mg/dL High [facility] Comment on above: Result Comment: The drugs N-Acetylcysteine and Metamizole may falsely depress this assay. Normal range: <150 mg/dL Borderline High: 150-199 mg/dL High: 200-499 mg/dL Very High: >500 mg/dL Performed By: #### L 500.4100, L500.4050, L3380.1000 #### [facility] [address] [facility] [place], [address] Potassium measurement (mass/ volume)Ordered By: Remy Yancey on 07-14-2024 Potassium (Unsp spec) [Mass/Vol] 5.1 mmol/L 3.3-5.1 [facility] Screening total cholesterol/ high density lipoprotein (HDL) cholesterol ratioOrdered By: Remy Yancey on 07-14-2024 Cholesterol.total/Choles terol in HDL [Mass ratio] 2.99 {ratio} [facility] Serum creatinine measurement (mass/volume)Ordered By: Remy Yancey on 07-14-2024 Creatinine [Mass/Vol] 1.28 mg/dL High 0.70-1.20 [facility] Serum globulin measurementOr dered By: Remy Yancey on 07-14-2024 Globulin (S) [Mass/Vol] 3.2 g/dL 2.2-4.2 [facility] Serum glucose measurement (m ass/volume)Ordered By: Remy Yancey on 07-14-2024 Glucose [Mass/Vol] 116 mg/dL High 70-99 [facility] Serum or plasma alanine carlson otransferase (ALT) measurementOrdered By: Remy Yancey on 07-14-2024 ALT [Catalytic activity/Vol] 46 U/L <47 [facility] Serum or plasma albumin narendra urement (mass/volume)Ordered By: Remy Yancey on 07-14-2024 Albumin [Mass/Vol] 4.4 g/dL 3.4-4.8 [facility] Serum or plasma albumin/glob ulin mass ratioOrdered By: Remy Yancey on 07-14-2024 Albumin/Globulin [Mass ratio] 1.4 {ratio} 0.9-2.4 [facility] Serum or plasma alkaline ej sphatase measurementOrdered By: Remy Yancey on 07-14-2024 ALP [Catalytic activity/Vol] 87 U/L 40-129 [facility] Serum or plasma calcium narendra urement (mass/volume)Ordered By: Remy Yancey on 07-14-2024 Calcium [Mass/Vol] 9.6 mg/dL 7.6-11.0 [facility] Serum or plasma cholesterol in HDL measurement (mass/volume)Ordered By: Remy Yancey on 07-14-2024 Cholesterol in HDL [Mass/Vol] 40 mg/dL >40 [facility] Comment on above: National Cholesterol Education Program (NCEP) guidelines:<40 mg/dL: Low HDL-cholesterol (major risk factor for CHD)>= 60 mg/dL: High HDL-cholesterol (negative risk factor for CHD)HDL-cholesterol is affected by a number of factors, e.g. smoking, exercise, hormones, sex and age. Serum or plasma cholesterol measurement (mass/volume)Ordered By: Remy Yancey on 07-14-2024 Cholesterol [Mass/Vol] 120 mg/dL <201 [facility] Comment on above: Cholesterol level, D esirable <200 mg/dLBorderline high cholesterol 200-239 mg/dLHigh cholesterol >=240 mg/dLRecommendations of the NCEP Adult Treatment Panel for the following risk-cutoff thresholds for the [place] population. Serum or plasma urea nitroge n measurement (mass/volume)Ordered By: Remy Yancey on 07-14-2024 Urea nitrogen [Mass/Vol] 14 mg/dL 4-19 [facility] Sodium levelOrdered By: Remy Yancey on 07-14-2024 Sodium [Moles/Vol] 141 mmol/L 133-145 [facility] Total proteinOrdered By: Rosana Yancey on 07-14-2024 Protein [Mass/Vol] 7.7 g/dL 5.9-8.4 [facility] Triglycerides measurementOrd ered By: Remy Yancey on 07-14-2024 Triglyceride [Mass/Vol] 213 mg/dL High <199 [facility] Comment on above: The drugs N-Acetylcy steine and Metamizole may falsely depress this assay. Normal range: <150 mg/dLBorderline High: 150-199 mg/dLHigh: 200-499 mg/dLVery High: >500 mg/dL Comprehensive Metabolic Prof ilon 12-21-2023 Albumin [Mass/Vol] 3.9 g/dL Normal 3.2-5.0 [facility] Comment on above: Performed By: #### L 100.0100, L501.9985, L500.4050, L501.9520, L501.9910 #### [facility] [address] [place], [address] Albumin/Globulin [Mass ratio] 1.1 {ratio} Normal 0.9-2.4 [facility] Comment on above: Performed By: #### L 100.0100, L501.9985, L500.4050, L501.9520, L501.9910 #### [facility] [address] [place], [address] ALK P 82 U/L Normal 45-117 [facility] Comment on above: Performed By: #### L 100.0100, L501.9985, L500.4050, L501.9520, L501.9910 #### [facility] [address] [place], [address] ALT [Catalytic activity/Vol] 54 U/L Normal 16-61 [facility] Comment on above: Performed By: #### L 100.0100, L501.9985, L500.4050, L501.9520, L501.9910 #### [facility] [address] [place], [address] AST [Catalytic activity/Vol] 46 U/L High 15-37 [facility] Comment on above: Performed By: #### L 100.0100, L501.9985, L500.4050, L501.9520, L501.9910 #### [facility] [address] [place], [address] Bilirubin [Mass/Vol] 0.50 mg/dL Normal 0.20-1.00 [facility] Comment on above: Result Comment: For patients on eltrombopag therapy, use of Dimension [place] TBIL is not recommended. Performed By: #### L 100.0100, L501.9985, L500.4050, L501.9520, L501.9910 #### [facility] [address] [place], [address] BUN/CRE 14.4 RATIO Normal 10-20 [facility] Comment on above: Performed By: #### L 100.0100, L501.9985, L500.4050, L501.9520, L501.9910 #### [facility] [address] [place], [address] CA,Total 9.6 mg/dL Normal 8.5-10.1 [facility] Comment on above: Performed By: #### L 100.0100, L501.9985, L500.4050, L501.9520, L501.9910 #### [facility] [address] [place], [address] Chloride [Moles/Vol] 107 mmol/L Normal 98-107 [facility] Comment on above: Performed By: #### L 100.0100, L501.9985, L500.4050, L501.9520, L501.9910 #### [facility] [address] [place], [address] CO2 [Moles/Vol] 25.0 mmol/L Normal 21.0-32.0 [facility] Comment on above: Performed By: #### L 100.0100, L501.9985, L500.4050, L501.9520, L501.9910 #### [facility] [address] [place], [address] Creatinine [Mass/Vol] 1.39 mg/dL High 0.70-1.30 [facility] Comment on above: Result Comment: The validity of the calculated GFR GFRAA in patients over 70 years has not been determined. Clinical correlation is essential. Performed By: #### L 100.0100, L501.9985, L500.4050, L501.9520, L501.9910 #### [facility] [address] [place], [address] EST GFR - AA 65 mL/min Normal >60 [facility] Comment on above: Result Comment: Afri can [place] GFR Calc Performed By: #### L 100.0100, L501.9985, L500.4050, L501.9520, L501.9910 #### [facility] [address] [place], [address] GAP 10 Normal 5-15 [facility] Comment on above: Performed By: #### L 100.0100, L501.9985, L500.4050, L501.9520, L501.9910 #### [facility] [address] [place], [address] GFR/1.73 sq M.predicted among non-blacks MDRD (S/P/Bld) [Vol rate/Area] 54 mL/min/{1.73_m2} Low >60 [facility] Comment on above: Result Comment: Non- GFR Calc Performed By: #### L 100.0100, L501.9985, L500.4050, L501.9520, L501.9910 #### [facility] [address] [place], [address] Globulin (S) [Mass/Vol] 3.7 g/dL Normal 2.2-4.2 [facility] Comment on above: Performed By: #### L 100.0100, L501.9985, L500.4050, L501.9520, L501.9910 #### [facility] [address] [place], [address] Glucose [Mass/Vol] 168 mg/dL High 74-106 [facility] Comment on above: Result Comment: Fast ing Glucose result greater than or equal to 126 mg/dL suggests DIABETES MELLITUS per A.D.A. criteria. Performed By: #### L 100.0100, L501.9985, L500.4050, L501.9520, L501.9910 #### [facility] [address] [place], [address] Potassium [Moles/Vol] 5.0 mmol/L Normal 3.5-5.1 [facility] Comment on above: Performed By: #### L 100.0100, L501.9985, L500.4050, L501.9520, L501.9910 #### [facility] [address] [place], [address] Sodium [Moles/Vol] 142 mmol/L Normal 136-145 [facility] Comment on above: Performed By: #### L 100.0100, L501.9985, L500.4050, L501.9520, L501.9910 #### [facility] [address] [place], [address] T PROT 7.6 g/dL Normal 6.4-8.2 [facility] Comment on above: Performed By: #### L 100.0100, L501.9985, L500.4050, L501.9520, L501.9910 #### [facility] [address] [place], [address] Urea nitrogen [Mass/Vol] 20 mg/dL High 7-18 [facility] Comment on above: Performed By: #### L 100.0100, L501.9985, L500.4050, L501.9520, L501.9910 #### [facility] [address] [place], [address] Lipid Profileon 12-21-2023 Cholesterol [Mass/Vol] 110 mg/dL Normal 200 [facility] Comment on above: Result Comment: <200 mg/dL Desirable 200-240 mg/dL Borderline >240 mg/dL High Risk Performed By: #### L 100.0100, L501.9985, L500.4050, L501.9520, L501.9910 #### [facility] [address] [place], [address] Cholesterol in HDL [Mass/Vol] 44 mg/dL Normal [facility] Comment on above: Result Comment: The drugs N-Acetylcysteine and Metamizole may falsely depress this assay. Reference Range HDL <40 mg/dL Low HDL Cholesterol HDL >or= 60 mg/dL High HDL Cholesterol Performed By: #### L 100.0100, L501.9985, L500.4050, L501.9520, L501.9910 #### [facility] [address] [place], [address] Cholesterol in LDL [Mass/Vol] 20 mg/dL Normal 0-130 [facility] Comment on above: Performed By: #### L 100.0100, L501.9985, L500.4050, L501.9520, L501.9910 #### [facility] [address] [place], [address] Cholesterol in VLDL [Mass/Vol] 46 mg/dL High 5-40 [facility] Comment on above: Performed By: #### L 100.0100, L501.9985, L500.4050, L501.9520, L501.9910 #### [facility] [address] [place], [address] Triglyceride [Mass/Vol] 228 mg/dL High [facility] Comment on above: Result Comment: The drugs N-Acetylcysteine and Metamizole may falsely depress this assay. Serum Triglycerides Reference Interval Normal <150 mg/dL Borderline high 150 - 199 mg/dL High 200 - 499 mg/dL Very High > or = 500 mg/dL Performed By: #### L 100.0100, L501.9985, L500.4050, L501.9520, L501.9910 #### [facility] [address] [place], [place], [id number] PSA,Total - Annual Screenon 12-21-2023 PSA,TOT SCREEN 0.96 ng/mL Normal 0.00-4.00 [facility] Comment on above: Result Comment: This test was performed using the TPSA assay method for the [employer] chemistry system. Values obtained with different assay methods cannot be used interchangably. When changing PSA assays in the course of monitoring a patient, additional sequential testing should be carried out to confirm baseline values. Performed By: #### L 100.0100, L501.9985, L500.4050, L501.9520, L501.9910 #### [facility] [address] [place], [place], [address] Basophil percentageOrdered B y: Remy Yancey on 06-19-2023 Bilirubin [Mass/Vol] 0.50 mg/dL 0.20-1.00 [facility] Comment on above: For patients on eltr ombopag therapy, use of Dimension [place] TBIL is not recommended. Chloride [Moles/Vol] 108 mmol/L 98-107 [facility] Cholesterol [Mass/Vol] 119 mg/dL <200 [facility] Comment on above: <200 mg/dL Desirable 200-240 mg/dL Borderline >240 mg/dL High Risk Glucose [Mass/Vol] 125 mg/dL 74-106 [facility] Comment on above: Fasting Glucose resu lt from 100 to 125 mg/dL suggests IMPAIRED HOMEOSTASIS per A.D.A. criteria. Potassium [Moles/Vol] 4.7 mmol/L 3.5-5.1 [facility] Protein [Mass/Vol] 7.9 g/dL 6.4-8.2 [facility] Sodium [Moles/Vol] 141 mmol/L 136-145 [facility] Triglyceride [Mass/Vol] 402 mg/dL <199 [facility] Comment on above: The drugs N-Acetylcy steine and Metamizole may falsely depress this assay. TRIGLYCERIDE IS GREATER THAN 400 mg/dL. LDL RESULT IS INVALID AND WILL NOT BE REPORTED.Serum Triglycerides Reference Interval Normal <150 mg/dL Borderline high 150 - 199 mg/dL High 200 - 499 mg/dL Very High > or = 500 mg/dL Laboratory - Chemistry and C hemistry - challengeOrdered By: Remy Yancey on 06-19-2023 Albumin/Globulin [Mass ratio] 1.0 {ratio} 0.9-2.4 [facility] ALP [Catalytic activity/Vol] 92 U/L 45-117 [facility] ALT [Catalytic activity/Vol] 42 U/L 16-61 [facility] Cholesterol in HDL [Mass/Vol] 34 mg/dL >40 [facility] Comment on above: The drugs N-Acetylcy steine and Metamizole may falsely depress this assay. Reference Range HDL <40 mg/dL Low HDL Cholesterol HDL >or= 60 mg/dL High HDL Cholesterol CO2 [Moles/Vol] 29.0 mmol/L 21.0-32.0 [facility] Globulin (S) [Mass/Vol] 4.0 g/dL 2.2-4.2 [facility] Urea nitrogen/Creatinine [Mass ratio] 15.3 mg/mg 10-20 [facility] No Panel InformationOrdered By: Remy Yancey on 06-19-2023 Estimated GFR (MDRD) Amer 59 mL/min >60 [facility] Comment on above: GFR Calc Estimated GFR (MDRD) Non-Af Amer 49 mL/min >60 [facility] Comment on above: Non- GFR Calc LDL Cholesterol [facility] Comment on above: Test not performed VLDL Cholesterol [facility] Comment on above: Test not performed Serum or plasma calcium narendra urement (mass/volume)Ordered By: Remy Yancey on 06-19-2023 Calcium [Mass/Vol] 10.1 mg/dL 8.5-10.1 [facility] Serum or plasma creatinine m easurement (mass/volume)Ordered By: Remy Yancey on 06-19-2023 Creatinine [Mass/Vol] 1.50 mg/dL 0.70-1.30 [facility] Comment on above: The validity of the calculated GFR & GFRAA in patients over 70 years has not been determined. Clinical correlation is essential. Serum or plasma urea nitroge n measurement (mass/volume)Ordered By: Remy Yancey on 06-19-2023 Urea nitrogen [Mass/Vol] 23 mg/dL 7-18 [facility] Thin prep Papanicolaou smear with manual screeningOrdered By: Remy Yancey on 06-19-2023 Thin prep Papanicolaou smear with manual screening 3.9 g/dL 3.2-5.0 [facility] Thin prep Papanicolaou smear with manual screening 33 U/L 15-37 [facility] Thin prep Papanicolaou smear with manual screening 4 5-15 [facility] Absolute lymphocyte countOrd ered By: Remy Yancey on 12-18-2022 Lymphocytes Auto (Unsp spec) [#/Vol] 2.56 10*3/uL 0.83-4.51 [facility] Basophil percentageOrdered B y: Remy Yancey on 12-18-2022 Basophils/100 WBC (Bld) 0.4 % 0-1 [facility] Bilirubin [Mass/Vol] 0.40 mg/dL 0.20-1.00 [facility] Comment on above: For patients on eltr ombopag therapy, use of Dimension [place] TBIL is not recommended. Chloride [Moles/Vol] 106 mmol/L 98-107 [facility] Cholesterol [Mass/Vol] 124 mg/dL <200 [facility] Comment on above: <200 mg/dL Desirable 200-240 mg/dL Borderline >240 mg/dL High Risk Eosinophils/100 WBC (Bld) 3.0 % 0-5 [facility] Glucose [Mass/Vol] 120 mg/dL 74-106 [facility] Comment on above: Fasting Glucose resu lt from 100 to 125 mg/dL suggests IMPAIRED HOMEOSTASIS per A.D.A. criteria. Neutrophils (Bld) [#/Vol] 3.9 10*3/uL 2.0-7.7 [facility] Neutrophils/100 WBC (Bld) 53.1 % 47-70 [facility] Potassium [Moles/Vol] 4.6 mmol/L 3.5-5.1 [facility] Protein [Mass/Vol] 8.0 g/dL 6.4-8.2 [facility] Sodium [Moles/Vol] 142 mmol/L 136-145 [facility] Triglyceride [Mass/Vol] 206 mg/dL <199 [facility] Comment on above: The drugs N-Acetylcy steine and Metamizole may falsely depress this assay.Serum Triglycerides Reference Interval Normal <150 mg/dL Borderline high 150 - 199 mg/dL High 200 - 499 mg/dL Very High > or = 500 mg/dL WBC (Bld) [#/Vol] 7.4 10*3/uL 4.4-11.0 [facility] Blood erythrocytes count (nu mber/volume)Ordered By: Remy Yancey on 12-18-2022 RBC (Bld) [#/Vol] 4.63 10*6/uL 4.6-6.2 [facility] Blood hemoglobin measurement (mass/volume)Ordered By: Remy Yancey on 12-18-2022 Hemoglobin (Bld) [Mass/Vol] 13.9 g/dL 13.0-16.5 [facility] Blood lymphocytes/100 leukoc ytesOrdered By: Remy Yancey on 12-18-2022 Lymphocytes/100 WBC (Bld) 34.8 % 19-41 [facility] Blood monocytes/100 leukocyt esOrdered By: Remy Yancey on 12-18-2022 Monocytes/100 WBC (Bld) 8.4 % 0-10 [facility] Blood platelet mean volumeOr dered By: Remy Yancey on 12-18-2022 Platelet mean volume (Bld) [Entitic vol] 10.5 fL 6.2-12.0 [facility] Determination of erythrocyte mean corpuscular volume (MCV)Ordered By: Remy Yancey on 12-18-2022 MCV (RBC) [Entitic vol] 92.7 fL 80-94 [facility] Hematocrit Auto (Bld) [Volum e fraction]Ordered By: Remy Yancey on 12-18-2022 Hematocrit (Bld) [Volume fraction] 42.9 % 40-54 [facility] Laboratory - Chemistry and C hemistry - challengeOrdered By: Remy Yancey on 12-18-2022 ALP [Catalytic activity/Vol] 90 U/L 45-117 [facility] ALT [Catalytic activity/Vol] 45 U/L 16-61 [facility] CO2 [Moles/Vol] 27.0 mmol/L 21.0-32.0 [facility] Globulin (S) [Mass/Vol] 4.1 g/dL 2.2-4.2 [facility] Urea nitrogen/Creatinine [Mass ratio] 12.3 mg/mg 10-20 [facility] Laboratory - Hematology and Cell countsOrdered By: Remy Yancey on 12-18-2022 Erythrocyte distribution width (RBC) [Entitic vol] 45.8 fL 35.1-43.9 [facility] Erythrocyte distribution width (RBC) [Ratio] 13.4 % 11.6-14.6 [facility] Immature granulocytes/100 WBC (Bld) 0.300 % 0.0-0.9 [facility] Comment on above: IG% - Immature Granu locytes (promyelocytes, myelocytes and metamyelocytes) > 1% indicates that a LEFT SHIFT is Present. MCH (RBC) [Entitic mass] 30.0 pg 27.0-32.0 [facility] Nucleated RBC/100 WBC (Bld) [Ratio] 0 % 0-5 [facility] MCHC Auto (RBC) [Mass/Vol]Or dered By: Remy Yancey on 12-18-2022 MCHC (RBC) [Mass/Vol] 32.4 g/dL 32-36 [facility] No Panel InformationOrdered By: Remy Yancey on 12-18-2022 Estimated GFR (MDRD) Amer 82 mL/min >60 [facility] Comment on above: GFR Calc Estimated GFR (MDRD) Non-Af Amer 68 mL/min >60 [facility] Comment on above: Non- GFR Calc Prostate Specific Antigen Screen 0.58 ng/mL 0.00-4.00 [facility] Comment on above: This test was perfor med using the TPSA assay method for the[employer] chemistry system. Values obtained with differentassay methods cannot be used interchangably.When changing PSA assays in the course of monitoring apatient, additional sequential testing should be carriedout to confirm baseline values. Tacrolimus (Prograf) Level 2.6 ng/mL 2.0-20.0 [facility] Comment on above: Trough (immediately following transplant) 15.0 Trough (steady state, 2 weeks or more after transplant): 3.0 - 8.0 Performed by LC-MS/MS technology.Performed at: [employer] [id number] Director: Clark Burch MD, Phone: [phone] Urine Microalbumin/Creatinine Ratio 244.0 mg/g CRE <30 [facility] Vitamin D 25-Hydroxy 23.5 ng/mL [facility] Comment on above: Vitamin D 25(OH) Sta tus Range Deficiency <20 ng/mL (50nmol/L) Insufficiency 20 - 30 ng/mL (50 - 75 nmol/L) Sufficiency 30 - 100 ng/mL (75 - 250 nmol/L) Toxicity >100 ng/mL (>250 nmol/L) Platelets bldOrdered By: Rosana Yancey on 12-18-2022 Platelets (Bld) [#/Vol] 268 10*3/uL 150-450 [facility] Serum or plasma albumin narendra urement (mass/volume)Ordered By: Remy Yancey on 12-18-2022 Albumin [Mass/Vol] 3.9 g/dL 3.2-5.0 [facility] Serum or plasma albumin/glob ulin mass ratioOrdered By: Remy Yancey on 12-18-2022 Albumin/Globulin [Mass ratio] 1.0 {ratio} 0.9-2.4 [facility] Serum or plasma calcium narendra urement (mass/volume)Ordered By: Remy Yancey on 12-18-2022 Calcium [Mass/Vol] 9.3 mg/dL 8.5-10.1 [facility] Serum or plasma cholesterol in HDL measurement (mass/volume)Ordered By: Remy Yancey on 12-18-2022 Cholesterol in HDL [Mass/Vol] 44 mg/dL >40 [facility] Comment on above: The drugs N-Acetylcy steine and Metamizole may falsely depress this assay. Reference Range HDL <40 mg/dL Low HDL Cholesterol HDL >or= 60 mg/dL High HDL Cholesterol Serum or plasma cholesterol in VLDL measurement (mass/volume)Ordered By: Remy Yancey on 12-18-2022 Cholesterol in VLDL [Mass/Vol] 41 mg/dL 5-40 [facility] Serum or plasma creatinine m easurement (mass/volume)Ordered By: Remy Yancey on 12-18-2022 Creatinine [Mass/Vol] 1.14 mg/dL 0.70-1.30 [facility] Comment on above: The validity of the calculated GFR & GFRAA in patients over 70 years has not been determined. Clinical correlation is essential. Serum or plasma low density lipoprotein (LDL) cholesterol measurement (mass/volume)Ordered By: Remy Yancey on 12-18-2022 Cholesterol in LDL [Mass/Vol] 39 mg/dL 0-130 [facility] Serum or plasma urea nitroge n measurement (mass/volume)Ordered By: Remy Yancey on 12-18-2022 Urea nitrogen [Mass/Vol] 14 mg/dL 7-18 [facility] Thin prep Papanicolaou smear with manual screeningOrdered By: Remy Yancey on 12-18-2022 Thin prep Papanicolaou smear with manual screening 43 U/L 15-37 [facility] Thin prep Papanicolaou smear with manual screening 9 5-15 [facility] Thin prep Papanicolaou smear with manual screening 122.0 mg/L NO RANGE EST. [facility] Urine creatinine measurement (mass/volume)Ordered By: Remy Yancey on 12-18-2022 Creatinine (U) [Mass/Vol] 50.00 mg/dL NO RANGE EST. [facility] Whole blood hemoglobin A1c/t otal hemoglobin ratio (mass fraction)Ordered By: Remy Yancey on 12-18-2022 HbA1c (Bld) [Mass fraction] 7.4 % 3.8-5.6 [facility] Comment on above: Normal < 5.7 % Predi abetic 5.7 - 6.4 % Diabetic >or= 6.5 % Please note range changes. Basophil percentageon 2021 Bilirubin [Mass/Vol] 0.40 mg/dL 0.20-1.00 [facility] Work Phone: Comment on above: For patients on eltr ombopag therapy, use of Dimension [place] TBIL is not recommended. Chloride [Moles/Vol] 109 mmol/L 98-107 [facility] Work Phone: Glucose [Mass/Vol] 99 mg/dL 74-106 [facility] Work Phone: Potassium [Moles/Vol] 4.8 mmol/L 3.5-5.1 [facility] Work Phone: Protein [Mass/Vol] 7.5 g/dL 6.4-8.2 [facility] Work Phone: Sodium [Moles/Vol] 139 mmol/L 136-145 [facility] Work Phone: Laboratory - Chemistry and C hemistry - challengeon 12-25-2021 ALP [Catalytic activity/Vol] 73 U/L 45-117 [facility] Work Phone: ALT [Catalytic activity/Vol] 41 U/L 16-61 [facility] Work Phone: CO2 [Moles/Vol] 25.0 mmol/L 21.0-32.0 [facility] Work Phone: Globulin (S) [Mass/Vol] 3.7 g/dL 2.2-4.2 [facility] Work Phone: Urea nitrogen/Creatinine [Mass ratio] 13.7 mg/mg 10-20 [facility] Work Phone: No Panel Informationon 12-25 Estimated GFR (MDRD) Amer 74 mL/min >60 [facility] Work Phone: Comment on above: GFR Calc Estimated GFR (MDRD) Non-Af Amer 61 mL/min >60 [facility] Work Phone: Comment on above: Non- GFR Calc Serum or plasma albumin narendra urement (mass/volume)on 12-25-2021 Albumin [Mass/Vol] 3.8 g/dL 3.2-5.0 [facility] Work Phone: Serum or plasma albumin/glob ulin mass ratioon 12-25-2021 Albumin/Globulin [Mass ratio] 1.0 {ratio} 0.9-2.4 [facility] Work Phone: Serum or plasma calcium narendra urement (mass/volume)on 12-25-2021 Calcium [Mass/Vol] 9.3 mg/dL 8.5-10.1 [facility] Work Phone: Serum or plasma creatinine m easurement (mass/volume)on 12-25-2021 Creatinine [Mass/Vol] 1.24 mg/dL 0.70-1.30 [facility] Work Phone: Comment on above: The validity of the calculated GFR & GFRAA in patients over 70 years has not been determined. Clinical correlation is essential. Serum or plasma urea nitroge n measurement (mass/volume)on 12-25-2021 Urea nitrogen [Mass/Vol] 17 mg/dL 7-18 [facility] Work Phone: Thin prep Papanicolaou smear with manual screeningon 12-25-2021 Thin prep Papanicolaou smear with manual screening 32 U/L 15-37 [facility] Work Phone: Thin prep Papanicolaou smear with manual screening 5 5-15 [facility] Work Phone: US ABDOMEN/ABDOMEN DOPPLERon 08-13-2017 US ABDOMEN/ABDOMEN DOPPLER ORIGINALUS ABDOMEN/ABDOMEN DOPPLER CLINICAL INDICATION:HX LIVER TRANSPLANT COMPARISON: [...] 1.3 cm, likely representing a simple cyst. VASCULAR:SV: Patent MPV: Patent, normal direction of flowRPV: Patent, normal directional flowLPV: Patent, normal directional flow SNOW: Patent, normal directional flow RHV: Patent with normal waveformsMHV: Patent with normal waveformsLHV: Patent with normal waveforms IMPRESSION: 1. Normal ultrasound and Doppler imaging findings of a transplanted liver. Interpreted By: Kallie Tavarez MDPreliminary Report By: Kallie Tavarez MDElectronically Signed By: Kallie Tavarez MD Dictated Date: 08/13/2017 10:16:25 AM Prelim Date: 08/13/2017 10:16:25 AM Sign Date: 08/13/2017 11:42:02 AM Normal [facility] ([place]) Encounters Encounter Date Encounter Type Care Provider Facility Start: 11-14-2024 ambulatory [facility] Facility[facility] Start: 10-28-2024 End: 10-28-[address] Remy Yancey MD Work Phone: -Laboratory [facility] Start: 10-28-2024 End: 10-28-[address] Remy Yancey MD -Laboratory [facility] Start: 10-28-2024 End: 10-28-2024 ambulatory Remy Yancey Facility:[facility] Start: 08-09-2024 End: 08-09-[address] Remy Yancey MD Work Phone: [facility] Work Phone: Start: 08-09-2024 End: 08-09-[address] Remy Yancey MD -Laboratory [facility] Work Phone: Start: 08-09-2024 End: 08-09-2024 ambulatory Remy Yancey Facility:[facility] Start: 07-14-2024 End: 07-14-[address] Remy Yancey MD Work Phone: [facility] Work Phone: Start: 07-14-2024 End: 07-14-[address] Remy Yancey MD -Laboratory [facility] Start: 07-14-2024 End: 07-14-2024 ambulatory Remy Yancey Facility:[facility] Start: 12-21-2023 End: 12-21-2023 ambulatory Remy Yancey Facility:[facility] Start: 06-19-2023 End: 06-19-2023 ambulatory [facility] Work Phone: Start: 06-19-2023 End: 06-19-2023 [facility] Start: 01-08-2023 End: 01-08-2023 ambulatory [facility] Work Phone: Start: 01-08-2023 End: 01-08-2023 Patient encounter procedure [facility]-Outpatient Bone Densitometry Work Phone: Start: 12-18-2022 End: 12-18-2022 [facility] Start: 12-25-2021 End: 12-25-2021 ambulatory [facility] Work Phone: Start: 12-25-2021 End: 12-25-2021 [facility] Start: 08-13-2017 End: 08-14-2017 [facility]ulatory [facility] Procedure Procedure Detail Performing Clinician Start: 10-28-[address] Remy Yancey MD Work Phone: Comment on above: This test was performed using the [employer] tPSA method. Measured values of a patient sample can vary depending on the testing procedure used. PSA values determined on patient samples by different testing procedures cannot be used interchangeably. If there is a change in PSA assays while monitoring therapy, sequential testing should be performed to confirm baseline values. Start: 08-09-2024 Urine microalbumin/creatinine ratio measurement Dr. Remy Yancey MD Work Phone: Comment on above: Previous reported result: 464.0 mg/g CRE Edited by: JEAN on 08/23/24:1337 AMENDED REPORT 08/23/24 1337 MALB:CREAT previously reported as: 464.0 mg/g CRE Start: 07-14-[address] Remy Yancey MD Work Phone: Comment on above: Target steady state trough concentration forTacrolimus varies based on type of organ transplantimmunosuppressive protocol and other patient specificfactors. Tacrolimus trough concentrations should beinterpreted in conjunction with clinical assessmentsof rejection and tolerability. Values obtained withdifferent assay methods cannot be used interchangeablydue to differences in assay methods and cross-reactivtywith metabolites, nor should correction factors beapplied. Therefore, consistent use of one assay forindividual patients is recommended.Detection Limit = 0.5 ng/mLPerformed by LC-MS/MS technology.Performed at: [address] [id number] Director: Clark Burch MD, Phone: [phone] Start: 01-08-2023 Dual energy X-ray absorptiometry Start: 12-18-2022 X-ray of lumbosacral spine Payers Date Payer Category Payer Medicare [id number] 2023 Self-pay [id number] 2023 Unknown [id number] 2017 Unknown [id number] Medicare [id number] Medicare [id number] Medicare [employer] E [id number] Unknown [id number] Unknown [id number] Unknown [id number] Unknown [id number] Unknown [id number] Unknown [id number] Unknown [id number] Social History Date Type Detail Facility Start: 06-29-2018 End: 06-29-2018 Tobacco smoking status CAIS Unknown if ever smoked [facility] Start: 06-29-2018 Non-smoker [facility] Start: 1950 Sex Assigned At Male [facility] Start: 06-29-2018 Tobacco smoking stat us CAIS Ex-smoker (finding) [facility] Evaluation note Note Date & Type Note Facility Evaluation note No assessment information availa ble [facility] Work Phone: Reason for referral (narrative) Note Date & Type Note Facility Reason for referral (narrative) No reason for referral information available [facility] Work Phone: Summary Purpose Family History No Family History Records Found Relationship Condition Age at Onset Recorded Date/T jose carlos uncle Diabetes mellitus Unknown Advance Directives No Advanced Directives Records Found Advance Directive Response Recorded Date/ Time Living Will Yes June 29, 2018 8:11am Power of Polysomnographic Technician Yes June 29 8:11am Advance Directive Response Recorded Date/ Time Living Will Yes June 29, 2018 7:11am Power of Polysomnographic Technician Yes June 29 7:11am Chief Complaint and Reason for Visit Chief Complaint ADD XRAY SPLS- BACK PAIN SCREENING Additional Source Comments (unrecognized sect ion and content) No Status Records FoundNo Status Records Found INFORMATION SOURCE (unrecogn ized section and content) DATE CREATED AUTHOR 08/17/2017 [facility] ([place]) DATE CREATED AUTHOR AUTHOR'S DAGOBERTO ATION 11/16/2024 [facility] Goals (unrecognized section and content) Goals may be documented in a n alternate sectionGoals may be documented in an alternate sectionGoals may be documented in an alternate sectionGoals may be documented in an alternate sectionGoals may be documented in an alternate sectionGoals may be documented in an alternate section Care Teams (unrecognized sec tion and content) Team Status: Active Member Role Status Dates Dr. Remy Yancey MD Family Provider Active Dr. Remy Yancey MD Primary Care Provider Active Team Status: Inactive Member Role Status Dates Dr. Remy Yancey MD Primary Care Provi jong, Attending Provider, Referring Provider Active Team Status: Inactive Member Role Status Dates Dr. Remy Yancey MD Primary Care Provider, Attending Provider Active Team Status: Inactive Member Role Status Dates Dr. Remy Yancey MD Primary Care Provider Active Start: July 14, 2024 End: July 14, 2024 Dr. Remy Yancey MD Attending Provider Active Start: July 14, 2024 End: July 14, 2024 Dr. Remy Yancey MD Referring Provider Active Start: July 14, 2024 End: July 14, 2024 Team Status: Inactive Member Role Status Dates Dr. Remy Yancey MD Primary Care Provider Active Start: August 09, 2024 End: August 09, 2024 Dr. Remy Yancey MD Attending Provider Active Start: August 09, 2024 End: August 09, 2024 Dr. Remy Yancey MD Referring Provider Active Start: August 09, 2024 End: August 09, 2024 Team Status: Active Member Role/Relationship Status Dates Dr. Remy Yancey MD Family Provider Active Dr. Remy Yancey MD Primary Care Provider Active Team Status: Inactive Member Role/Relationship Status Dates Dr. Remy Yancey MD Primary Care Provider Active Start: July 14, 2024 End: July 14, 2024 Dr. Remy Yancey MD Attending Provider Active Start: July 14, 2024 End: July 14, 2024 Dr. Remy Yancey MD Referring Provider Active Start: July 14, 2024 End: July 14, 2024 Team Status: Inactive Member Role/Relationship Status Dates Dr. Remy Yancey MD Primary Care Provider Active Start: August 09, 2024 End: August 09, 2024 Dr. Remy Yancey MD Attending Provider Active Start: August 09, 2024 End: August 09, 2024 Dr. Remy Yancey MD Referring Provider Active Start: August 09, 2024 End: August 09, 2024 Team Status: Inactive Member Role/Relationship Status Dates Dr. Remy Yancey MD Primary Care Provider Active Start: October 28, 2024 End: October 28, 2024 Dr. Remy Yancey MD Attending Provider Active Start: October 28, 2024 End: October 28, 2024 Dr. Remy Yancey MD Referring Provider Active Start: October 28, 2024 End: October 28, 2024 FOR RECORDS PERTAINING TO PATIENTS WHO ARE OR HAVE BEEN ENROLLED IN A CHEMICAL DEPENDENCY/SUBSTANCEABUSE PROGRAM, SOME INFORMATION MAY BE OMITTED. This clinical summary was aggregated from multiple sources. Caution should be exercised in using it in the provision of clinical care. This summary normalizes information from multiple sources, and as a consequence, information in this document may materially change the coding, format and clinical context of patient data. In addition, data may be omitted in some cases. CLINICAL DECISIONS SHOULD BE BASED ON THE PRIMARY CLINICAL RECORDS. [facility] [employer] [facility]. provides no warranty or guarantee of the accuracy or completeness of information in this document.
== END | disposition home or self-care (01) ==
LOC: LAB 10:48
PROVIDERS: PCP Family Medicine; Referring Provider Internal Medicine Pulmonary Disease; Visit Provider Internal Medicine Pulmonary Disease
DX: R06.00 Dyspnea, unspecified (principal)
CPT/HCPCS: 36415; 83880

== ENCOUNTER → 2024-12-12 | Outpatient (CLI) | payer MEDICARE, SELFPAY ==
[2024-12-12 10:55] LABS: Anion Gap 10 (5-15); BUN 24 mg/dL (4-19); BUN/Creat Ratio 14.1 RATIO (10-20); Calcium,Total 9.1 mg/dL (7.6-11.0); Carbon Dioxide 28.0 mmol/L (21.0-32.0); Chloride 103 mmol/L (98-108); Glucose 171 mg/dL (70-99); Potassium 5.2 mmol/L (3.3-5.1)
== END | disposition home or self-care (01) ==
LOC: MFPLAB 08:40
PROVIDERS: PCP Family Medicine; Visit Provider Family Medicine
DX: I27.20 Pulmonary hypertension, unspecified (principal)
CPT/HCPCS: 36415; 80048

== ENCOUNTER → 2025-01-02 | Outpatient (CLI) | payer MEDICARE, SELFPAY | END | disposition home or self-care (01) | PROVIDERS: PCP Family Medicine; Referring Provider Internal Medicine Cardiovascular Disease; Visit Provider Internal Medicine Cardiovascular Disease | DX: R06.02 Shortness of breath (principal); I48.91 Unspecified atrial fibrillation; E11.9 Type 2 diabetes mellitus without complications; I10 Essential (primary) hypertension; E78.5 Hyperlipidemia, unspecified | CPT/HCPCS: 78452; 93017; A9500; A4216; J2785 ==

== ENCOUNTER → 2025-01-04 | Outpatient (CLI) | payer MEDICARE, SELFPAY ==
--- NOTE | 2025-01-02 14:56 | STRESSREP_ITS ---
Stress Test Report Date: 01/02/2025 Procedure: Pharmacologic stress nuclear imaging study Indications: A-fib Consent: Per the patient Procedure: The patient underwent pharmacologic (Regadenoson 0.4mg ) evaluation with a peak heart rate of 85 beats per minute (57%predicted maximal heart rate) and a peak blood pressure of 120/82 mmHg. The baseline ECG demonstrated atrial fibrillation. The peak pharmacologic ECG no ischemic changes. There were no cardiac dysrhythmias pretest, during pharmacologic infusion, or recovery. There was no complaint of chest discomfort during pharmacologic infusion or recovery. The patient was injected with 13.9 millicuries of technetium 99m Cardiolite and subsequently rest SPECT Cardiolite nuclear imaging was obtained in the horizontal long, vertical long, and short axis views. The patient underwent pharmacologic (Regadenoson) evaluation. The patient was injected with 41.7 millicuries of technetium 99m Cardiolite and subsequently stress SPECT Cardiolite nuclear imaging was obtained in the horizontal long, vertical long, and short axis views. A gated Cardiolite study at peak stress was obtained. The examination was stopped secondary to completion of protocol. Rest and stress SPECT Cardiolite nuclear imaging status post realignment, normalization, and attenuation correction demonstrate no fixed or reversible perfusion defects. There is end systolic thickening and brightening. The gated Cardiolite study demonstrates myocardial thickening and inward wall motion. The reported LVEF is 74%. Impression: 1. Pharmacologic (Regadenoson) evaluation 2. Peak pharmacologic ECG with no diagnostic ischemic changes. 3. Baseline atrial fibrillation. 5. Rest and stress SPECT Cardiolite nuclear imaging demonstrate relative uniform tracer uptake and myocardial perfusion appearing within normal limits. 6. The gated Cardiolite study reports an LVEF of 74%. This note was generated with [employer] software. It may contain incorrect words, spelling, and punctuation that were not noted in checking the note before signing.
--- NOTE | 2025-01-04 16:48 | US_ITS ---
PROCEDURE: KIDNEY AND BLADDER 01/04/2025 REASON FOR EXAM: [id number] TECHNIQUE: Procedure Code: USKI Modality: US Procedure: KIDNEY AND BLADDER FINDINGS: Right kidney measures 10.2 cm and left kidney measures 10.6 cm. Normal echotexture of bilateral kidneys. No hydronephrosis. No renal stones. Cysts within bilateral kidneys measuring up to 1.2 cm within the right and 2.3 cm within the left. Urinary bladder is unremarkable. US/Kidney and Bladder IMPRESSION: No hydronephrosis. Bilateral renal cysts as above. Reading Location: [id number]
--- OUTSIDE RECORDS SUMMARY | 2025-01-04 18:22 | XMS RPT_ITS | CCD ---
Author Organization [facility]ini[facility] Care Team Providers Care Linen Controller Name Role Phone REMY YANCEY Unavailable Unavailable REMY YANCEY Unavailable Unavailable Naye BRUNO, Dr. Alberto Primary Care Provider [phone] Naye BRUNO, Dr. Alberto Attending Provider Naye BRUNO, Dr. Alberto Referring Provider Naye BRUNO, Dr. Alberto Primary Care Physician Naye BRUNO, Dr. Alberto Attending Physician Naye BRUNO, Dr. Alberto Referring Provider Rogelio BRUNO, Dr. Torin Looney Attending Physician Rogelio BRUNO, Dr. Torin Looney Referring Provider [phone] Dustin BRUNO, Dr. Valencia Attending Physician Naye BRUNO, Dr. Alberto Primary Care Physician Naye BRUNO, Dr. Alberto Attending Physician Naye BRUNO, Dr. Alberto Referring Provider Remy Yancey Attending Unavailable Yancey, Remy Referring Unavailable Yancey, Remy Primary Care Unavailable Yancey, Remy Attending Unavailable YanceyRemy la Referring Unavailable Yancey, Remy Primary Care Unavailable Yancey, Remy Attending Unavailable Yancey, Remy Referring Unavailable Yancey, Remy Primary Care Unavailable Torin Mercado V Attending Unavailable Naye, Remy Primary Care Unavailable Sibdeysi, Torin Looney Referring Unavailable Yancey, Remy Attending Unavailable Yancey, Remy Primary Care Unavailable Yancey, Remy Primary Care Unavailable Sibdeysi, Torin Looney Attending Unavailable SibTorin jo V Referring Unavailable Carmel, Jadyaprakas Attending Unavailable Carmel, Deirdre Referring Unavailable Naye, Remy Primary Care Unavailable Annie Chan Attending Unavailable Remy Yancey Primary Care Unavailable Annie Chan Attending Unavailable Deirdre Burt Referring Unavailable Remy Yancey Primary Care Unavailable Deirdre Burt Consulting Unavailable Annie Chan Attending Unavailable Remy Yancey Referring Unavailable Remy Yancey Primary Care Unavailable Annie Chan Attending Unavailable Annie Chan Referring Unavailable Remy Yancey Primary Care Unavailable Medications Current Medications Medication Drug Class(es) Dates Sig (Normalized) Sig (Original) amLODIPine 5 mg oral tablet (11 sources) Dihydropyridine Calcium Channel Adebayo Start: 11-30-2024 take 1 tablet by mouth once daily Start: 06-25-2018 End: 11-30-2024 take 1 tablet by mouth at bedtime Amlodipine 2.5 mg tablet Discontinued 2.5 mg PO AT BEDTIME June 25, 2018 12:00am November 30, 2024 12:16pm apixaban 5 mg oral tablet (1 source) Factor Xa Inhibitor Start: 12-13-2024 take 1 tablet by mouth twice daily calcium carbonate 1500 mg / cholecalciferol 0.01 mg oral tablet (2 sources) Vitamin D Start: 11-30-2024 furosemide 20 mg oral tablet (1 source) Loop Diuretic Start: 12-13-2024 take 1 tablet by mouth once daily 3 ml insulin glargine 100 unt/ml pen injector (10 sources) Insulin Analog Start: 12-13-2024 Start: 06-29-2018 End: 11-30-2024 Insulin Glargine (Lantus (Bk c)) 100 UNITS/ML insulin pen Discontinued 50 U SC AT BEDTIME June 29, 2018 12:00am November 30, 2024 12:19pm Start: 06-29-2018 Insulin Glargi ne (Lantus (Bkc)) 100 UNITS/ML insulin pen Active 50 UNITS SC AT BEDTIME June 29, 2018 12:00am 3 ml insulin lispro 100 unt/ml cartridge (11 sources) Insulin Analog Start: 11-30-2024 inject 35 [IU] by subcutaneous injection three to four times daily at bedtime Start: 06-29-2018 End: 11-30-2024 inject 30 [IU] by subcutaneous injection three to four times daily at bedtime Insulin Lispro (Humalog U-100 Insulin) 100 UNIT/ML cartridge Discontinued 0 U SQ BEFORE MEALS AND AT BEDTIME June 29, 2018 12:00am November 30, 2024 12:20pm 30 units 3-4 times per day sliding scale magnesium oxide 500 mg oral tablet (2 sources) Start: 11-30-2024 take 1 tablet by mouth once daily metFORMIN hydrochloride 500 mg oral tablet (11 sources) Biguanide Start: 06-25-2018 End: 11-30-2024 take 1 tablet by mouth once daily metoprolol tartrate 50 mg oral tablet (1 source) beta-Adrenergic Adebayo Start: 12-13-2024 take 1 tablet by mouth twice daily multivitamin capsule (3 sources) Start: 06-25-2018 take 1 capsule by mouth once daily multivitamin capsule Active 1 CAP PO DAILY June 24, 2018 11:00pm Start: 06-25-2018 take 1 capsule by mo uth once daily multivitamin capsule Active 1 CAP PO DAILY June 25, 2018 12:00am Multivitamin capsule (6 sources) Start: 06-25-2018 Start: 06-25-2018 Multivitamin c apsule Active 1 NMA PO DAILY June 25, 2018 12:00am rosuvastatin calcium 20 mg oral tablet (11 sources) HMG-CoA Reductase Inhibitor Start: 11-30-2024 take 1 tablet by mouth once daily Start: 06-25-2018 End: 11-30-2024 take 1 tablet by mouth at bedtime Rosuvastatin (Crestor) 40 mg tablet Discontinued 40 mg PO AT BEDTIME June 25, 2018 12:00am November 30, 2024 12:18pm tacrolimus 1 mg oral capsule (9 sources) Calcineurin Inhibitor Immunosuppressant Start: 06-25-2018 take 1 capsule by mouth every twelve hours Completed/Discontinued Medications Medication Drug Class(es) Dates Sig (Normalized) Sig (Original) calcium carbonate 1500 mg oral tablet (9 sources) Start: 06-25-2018 End: 11-30-2024 take 1 tablet by mouth once daily Calcium Carbonate 600 mg calcium (1,500 mg) tablet Discontinued 600 mg PO DAILY June 25, 2018 12:00am November 30, 2024 12:17pm Mcdaniels-3 Fatty Acids (Fish Oil Concentrate) 1,000 mg capsule (9 sources) Start: 06-25-2018 End: 11-30-2024 take 1 capsule by mouth once daily Mcdaniels-3 Fatty Acids (Fish Oil Concentrate) 1,000 mg capsule Discontinued 1000 mg PO DAILY June 25, 2018 12:00am November 30, 2024 12:19pm Start: 06-25-2018 take 1 capsule by mouth once d aily Start: 06-25-2018 take 1 capsule by mouth once d aily Mcdaniels-3 Fatty Acids (Fish Oil Concentrate) 1,000 mg capsule Active 1000 mg PO DAILY June 25, 2018 12:00am Start: 06-25-2018 take 1 capsule by mouth once d aily Mcdaniels-3 Fatty Acids (Fish Oil Concentrate) 1,000 mg capsule Active 1000 MG PO DAILY June 24, 2018 11:00pm Start: 06-25-2018 take 1 capsule by mouth once d aily Mcdaniels-3 Fatty Acids (Fish Oil Concentrate) 1,000 mg capsule Active 1000 MG PO DAILY June 25, 2018 12:00am polyethylene glycol 3350 663727 mg / potassium chloride 2970 mg / sodium bicarbonate 6740 mg / sodium chloride 5860 mg / sodium sulfate 85489 mg powder for oral solution (9 sources) Osmotic Laxative Start: 06-28-2018 End: 11-30-2024 take 4000 mL by mouth once Peg 3350-Electrolytes 236-22.74-6.74 -5.86 gram recon soln Discontinued 4000 mL PO ONCE 4000 0 June 28, 2018 12:00am November 30, 2024 12:19pm until fecal effluent is clear; do not exceed a total volume of 4000 mL Start: 06-28-2018 take 4000 mL by mouth once Peg 3350-Electrolytes Active 4000 ML PO ONCE 4000 June 28, 2018 12:00am until fecal effluent is clear; do not exceed a total volume of 4000 mL Problems Problem Classification Problem Date Documented Da te Episodic/Chronic Cardiac dysrhythmias (5 sources) Atrial fibrillation; Translations: [Unspecified atrial fibrillation] Onset: 12-13-2024 11-30-2024 Chronic Chronic kidney disease (1 source) Chronic kidney disease; Translations: [Chronic kidney disease, stage 3b] Onset: 01-03-2025 Diabetes mellitus without complication (5 sources) Diabetes mellitus; Translations: [Type 2 diabetes mellitus without complications] Onset: 12-13-2024 11-30-2024 Chronic Disorders of lipid metabolism (3 sources) Dyslipidemia; Translations: [Hyperlipidemia, unspecified] Onset: 01-02-2025 12-13-2024 Chronic Essential hypertension (5 sources) Hypertensive disorder; Translations: [Essential (primary) hypertension] Onset: 12-13-2024 11-30-2024 Chronic Heart valve disorders (2 sources) Mitral valve regurgitation; Translations: [Nonrheumatic mitral (valve) insufficiency] 12-13-2024 Chronic Other lower respiratory disease (1 source) Shortness of breath; Translations: [Shortness of breath] Onset: 01-02-2025 Episodic Other lower respiratory disease (1 source) Dyspnea, unspecified; Translations: [Dyspnea, unspecified] Onset: 11-29-2024 Episodic Pulmonary heart disease (1 source) Pulmonary hypertension, unspecified; Translations: [Pulmonary hypertension, unspecified] Onset: 12-29-2024 Chronic Results Test Name Value Interpretation Reference Range Facility Stress Reporton 01-02-[address] [facility] [address] [place] [address] MR#: [id number] Acct: [id number] Name: ALICE COHN Rep #: [id number] : 1950 74 From: Annie Chan MD Primary Care: Dr. Remy Yancey MD Status: PRE CLI Referring Dr: Deirdre Burt MD Sex: M C Stress Test Report Date: 01/02/2025 Procedure: Pharmacologic stress nuclear imaging study Indications: A-fib Consent: Per the patient Procedure: The patient underwent pharmacologic (Regadenoson 0.4mg ) evaluation with a peak heart rate of 85 beats per minute (57%predicted maximal heart rate) and a peak blood pressure of 120/82 mmHg. The baseline ECG demonstrated atrial fibrillation. The peak pharmacologic ECG no ischemic changes. There were no cardiac dysrhythmias pretest, during pharmacologic infusion, or recovery. There was no complaint of chest discomfort during pharmacologic infusion or recovery. The patient was injected with 13.9 millicuries of technetium 99m Cardiolite and subsequently rest SPECT Cardiolite nuclear imaging was obtained in the horizontal long, vertical long, and short axis views. The patient underwent pharmacologic (Regadenoson) evaluation. The patient was injected with 41.7 millicuries of technetium 99m Cardiolite and subsequently stress SPECT Cardiolite nuclear imaging was obtained in the horizontal long, vertical long, and short axis views. A gated Cardiolite study at peak stress was obtained. The examination was stopped secondary to completion of protocol. Rest and stress SPECT Cardiolite nuclear imaging status post realignment, normalization, and attenuation correction demonstrate no fixed or reversible perfusion defects. There is end systolic thickening and brightening. The gated Cardiolite study demonstrates myocardial thickening and inward wall motion. The reported LVEF is 74%. Impression: 1. Pharmacologic (Regadenoson) evaluation 2. Peak pharmacologic ECG with no diagnostic ischemic changes. 3. Baseline atrial fibrillation. 5. Rest and stress SPECT Cardiolite nuclear imaging demonstrate relative uniform tracer uptake and myocardial perfusion appearing within normal limits. 6. The gated Cardiolite study reports an LVEF of 74%. This note was generated with [employer] software. It may contain incorrect words, spelling, and punctuation that were not noted in checking the note before signing. 01/02/25 1515 Date Annie Chan MD CC: Dr. Deirdre Burt MD; Dr. Remy Yancey MD Date Dictated: 01/02/251455 Date Transcribed: 01/02/251455 Baggage Handler: ELADIA Signed Normal [facility] Cardiology Visit Reporton Cardiology Visit Report [facility] [address] [place] [address] OFFICE VISIT Date of Service: 12/13/24 MR#: [id number] Acct: [id number] Name: SUKIALICE CANDICE Rep #: [id number] : 1950 Provider: Dr. Annie Chan MD Age/Sex: 73/M Location: [facility] Status: Signed HPI HPI History of Present Illness Details: This pleasant gentleman has history of liver transplant in 2002, hypertension, diabetes mellitus and dyslipidemia. He was recently noted to be in atrial fibrillation by his primary care physician. Subsequently he has been started on apixaban and referred to us for further evaluation and management. Patient denies any palpitations. He denies any chest pains either at rest or with exertion. He does complain of shortness of breath with exertion. No orthopnea. No PND. Occasional ankle edema. He has sleep apnea and wears BiPAP at night. No history of CVA or TIA. No history of abnormal bleeding. Denies any frequent falls. 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 Accompanied by: Is patient in pain?: No Allergies No Known Allergies Allergy (Verified 12/13/24 09:44) Medications ???Medication ???Instructions ???Recorded ???Confirmed ???Type multivitamin 1 cap PO DAILY 06/25/18 11/30/24 H istory tacrolimus 1 mg capsule, 1 mg PO Q12H 06/25/18 12/13/24 His tory immediate-release (Prograf) amlodipine 5 mg tablet 5 mg PO QDAY 11/30/24 11/30/24 His tory calcium 600 mg (as 1 tab PO QDAY 11/30/24 11/30/24 Hi story carbonate)-vitamin D3 10 mcg (400 unit) tablet (Calcium 600 + D(3)) insulin lispro 100 unit/mL See Rx Instructions subcut ACHS 12/13/24 History subcutaneous cartridge (Humalog U-100 Insulin) magnesium oxide 500 mg PO QDAY 11/30/24 11/30/24 H istory metformin 500 mg tablet 500 mg PO QDAY 11/30/24 12/13/24 H istory rosuvastatin 20 mg tablet 20 mg PO QDAY 11/30/24 12/13/24 Hi story apixaban 5 mg tablet (Eliquis) 5 mg PO BID 12/13/24 12/13/24 Hist ory furosemide 20 mg tablet 20 mg PO QDAY 12/13/24 12/13/24 Hi story insulin glargine 100 unit/mL (3 35 unit subcut 12/13/24 12/13/24 H istory mL) subcutaneous pen (Lantus Solostar U-100 Insulin) metoprolol tartrate 50 mg tablet 50 mg PO BID 12/13/24 12/13/24 His tory Ejection fraction %: 65 Have you fallen in the past year?: No COUNTS INCLUDE 234 BEDS AT [facility] Medical History (Updated 12/13/24 @ 10:[address] Annie Chan MD) Acid reflux Hypertension Diabetes Blood in stool Surgical History (Updated 12/13/24 @ 10:[address] Annie Chan MD) History of colonoscopy (06/30/18) History of appendectomy History of liver transplant Family History Uncle Diabetes Social History Smoking Status: Former smoker alcohol intake: never substance use type: does not use ROS Const Const: Positive for fatigue; Negative for weakness Eyes Eyes: Negative for change in vision ENT ENT: Negative for dizziness or balance problems Cardio Chest Pain: No Palpitations: No Edema: None Resp Respiratory: Positive for SOB with activity and SOB at rest; Negative for SOB orthopnea SOB lying down Additional Details: wears bipap at hs GI GI: Negative nausea or heartburn Musc Musc: Negative for balance problems Neuro Neuro: Negative for dizziness, lightheadedness, near syncope, syncope or weakness Endo Endo: Positive for fatigue Cardiology Exam Const Appearance: comfortable and no acute distress Nutritional Appearance: well nourished Neck Neck: no JVD Carotids: Negative bruit Chest Auscultation: Bilateral: Clear to Auscultation Cardio Rhythm: irregularly irregular Heart sounds: S1 normal and S2 normal Neuro General: patient alert, patient awake and patient oriented x3 Extremities Lower Extremity Edema: None: Bilateral Supplemental Info Supplemental Information Labs: LDL Cholesterol, (0-130) 20 mg/dL HDL Cholesterol, (40-) 40 mg/dL Cholesterol, (<=200) 120 mg/dL Triglycerides, (-199) 213 mg/dL H Diagnostics: Echocardiogram Chest X-Ray Past Visits: Cardiology Visit Today Assessment and Plan Assessment and Plan (1) Atrial fibrillation: Status: Chronic Plan: CHADS2???VASc score is 3. Recommend continue apixaban. Risks benefits discussed with patient and his . They agree with the plan. Continue metoprolol for rate control. Check Lexiscan stress Myoview. (2) Hypertension: (more content not included)... Normal [facility] Anion gap in Serum or Plasma Ordered By: Remy Yancey on 12-12-2024 Anion gap [Moles/Vol] 10 mmol/L - [facility] BUN/creatinine ratioOrdered By: Remy Yancey on 12-12-2024 Urea nitrogen/Creatinine [Mass ratio] 14.1 mg/mg 12-19 [facility] Basic Metabolic Profile (BMP )on 12-12-2024 BUN/CRE 14.1 RATIO Normal - [facility] Comment on above: Performed By: #### L 500.2500 #### [facility] [address] [place], [address] Calcium [Mass/Vol] 9.1 mg/dL Normal 7.6-11.0 [facility] Comment on above: Performed By: #### L 500.2500 #### [facility] [address] [place], [address] Chloride [Moles/Vol] 103 mmol/L Normal 98-108 [facility] Comment on above: Performed By: #### L 500.2500 #### [facility] [address] [place], [address] CO2 [Moles/Vol] 28.0 mmol/L Normal 21.0-32.0 [facility] Comment on above: Performed By: #### L 500.2500 #### [facility] [address] [place], [address] Creatinine [Mass/Vol] 1.70 mg/dL High 0.70-1.20 [facility] Comment on above: Performed By: #### L 500.2500 #### [facility] [address] [place], [address] GAP 10 Normal 07-14 [facility] Comment on above: Performed By: #### L 500.2500 #### [facility] [address] [place], [address] GFR/1.73 sq M.predicted among non-blacks MDRD (S/P/Bld) [Vol rate/Area] 43 mL/min/{1.73_m2} Low >60 [facility] Comment on above: Result Comment: mL/m in/1.73m2 CKD-EPI Creatinine Equation (2020) Performed By: #### L 500.2500 #### [facility] [address] [place], [address] Glucose [Mass/Vol] 171 mg/dL High 70-99 [facility] Comment on above: Performed By: #### L 500.2500 #### [facility] [address] [place], [address] Potassium [Moles/Vol] 5.2 mmol/L High 3.3-5.1 [facility] Comment on above: Performed By: #### L 500.2500 #### [facility] [address] [place], [address] Sodium [Moles/Vol] 141 mmol/L Normal 133-145 [facility] Comment on above: Performed By: #### L 500.2500 #### [facility] [address] [place], [address] Urea nitrogen [Mass/Vol] 24 mg/dL High 4-19 [facility] Comment on above: Performed By: #### L 500.2500 #### [facility] [address] [place], [address] Carbon dioxide, total [Moles /volume] in Central venous bloodOrdered By: Remy Yancey on 12-12-2024 CO2 [Moles/Vol] 28.0 mmol/L 21.0-32.0 [facility] Chloride assayOrdered By: Clif Yancey on 12-12-2024 Chloride [Moles/Vol] 103 mmol/L 98-108 [facility] Glomerular filtration rate ( GFR) estimation/1.73 sq m using serum, plasma, or whole bOrdered By: Remy Yancey on 12-12-2024 GFR/1.73 sq M.predicted among non-blacks MDRD (S/P/Bld) [Vol rate/Area] 43 mL/min/{1.73_m2} Low >60 [facility] Comment on above: mL/min/1.73m2 CKD-EP I Creatinine Equation (2020) Potassium measurement (mass/ volume)Ordered By: Remy Yancey on 12-12-2024 Potassium (Unsp spec) [Mass/Vol] 5.2 mmol/L High 3.3-5.1 [facility] Serum creatinine measurement (mass/volume)Ordered By: Remy Yancey on 12-12-2024 Creatinine [Mass/Vol] 1.70 mg/dL High 0.70-1.20 [facility] Serum glucose measurement (m ass/volume)Ordered By: Remy Yancey on 12-12-2024 Glucose [Mass/Vol] 171 mg/dL High 70-99 [facility] Serum or plasma calcium narendra urement (mass/volume)Ordered By: Remy Yancey on 12-12-2024 Calcium [Mass/Vol] 9.1 mg/dL 7.6-11.0 [facility] Serum or plasma urea nitroge n measurement (mass/volume)Ordered By: Remy Yancey on 12-12-2024 Urea nitrogen [Mass/Vol] 24 mg/dL High 4-19 [facility] Sodium levelOrdered By: Remy Yancey on 12-12-2024 Sodium [Moles/Vol] 141 mmol/L 133-145 [facility] Natriuretic peptide.B prohor lux N-Terminal [Mass/volume] in Serum or PlasmaOrdered By: Torin Mercado on 11-17-2024 Natriuretic peptide.B prohormone N-Terminal [Mass/Vol] 1489 pg/mL High <900 [facility] Comment on above: Heart Failure Unlike ly: < 300 pg/mLHeart Failure Likely< 50 Years: > 450 pg/mL50-75 Years: > 900 pg/mL>75 Years: > 1800 pg/mL Pro- Brain NATRIURETIC PEPTI Jack 11-17-2024 Natriuretic peptide B (Bld) [Mass/Vol] 1489 pg/mL High <=900 [facility] Comment on above: Result Comment: Hear t Failure Unlikely: < 300 pg/mL Heart Failure Likely < 50 Years: > 450 pg/mL 50-75 Years: > 900 pg/mL >75 Years: > 1800 pg/mL Performed By: #### L 503.7505 #### [facility] [address] [place], [address] Echocardiogram study reportO rdered By: Annie Chan on 11-15-2024 Study report [facility] [address] [place] [address] Echo Complete 11/14/24 1446 MR#: [id number] Acct: [id number] Name: ALICE COHN Rep #:[id number] : 1950 73 From: Annie Chan MD Attending Dr: Dr. Torin Mercado MD Status: REG CLI Ordering Dr: Torin Mercado MD Date: 11/14/24 Location: [facility] Sex: M C Admitted: Reason For Study [...] root. Pericardium/Pleural No pericardial effusion. MMode/2D Measurements & Calculations LVIDd: 3.4 cm IVSd: 1.1 cm [...] MV dec time: 0.15 sec Doppler Measurements & Calculations MV E max clayton: 113.9 cm/sec [...] Remy Yancey Performed By: Danae Louise RDCS 11/15/24 0946 Date _ Annie Chan MD CC: Dr. Remy Yancey MD; Dr. Torin Mercado MD ~ Date Dictated: 11/14/24 1446 Date Transcribed: 11/15/24 0946 Baggage Handler: Signed [facility] Work Phone: Chest PA and Lateralon 11-14 Chest PA and Lateral [facility] [address] [place] [address] Chest PA and Lateral MR#: [id number] Acct: [id number] Name: ALICE COHN Rep #: [id number] : 1950 M 73 From: Kevin martinez MD PCP: Dr. Remy Yancey MD Status: PRE CLI Study: Chest PA and Lateral Date of Exam: 11/14/24 Exam# [id number] Ordering Dr: Torin Mercado MD PROCEDURE: CHEST [...] and/or atelectasis. Radiographic follow-up recommended. Reading Location: [facility] CC: Dr. Remy Yancey MD; Dr. Torin Mercado MD Baggage Handler: Signed Normal [facility] Echo Completeon 11-14-2024 Echo Complete [facility] [address] [place] [address] Echo Complete 11/14/24 1446 MR#: [id number] Acct: [id number] Name: ALICE COHN Rep #: [id number] : 1950 73 From: Annie Chan MD Attending Dr: Dr. Torin Mercado MD Status: REG CLI Ordering Dr: Torin Mercado MD Date: 11/14/24 Location: [facility] Sex: M C Admitted: Reason For Study [...] MD; Dr. Torin Mercado MD Date Dictated: 11/14/24 1446 Date Transcribed: 11/15/24945 Baggage Handler: Signed Normal [facility] Natriuretic peptide.B prohor ulx N-Terminal [Mass/volume] in Serum or PlasmaOrdered By: Torin Mercado on 11-14-2024 Natriuretic peptide.B prohormone N-Terminal [Mass/Vol] 1730 pg/mL High <900 [facility] Comment on above: Heart Failure Unlike ly: < 300 pg/mLHeart Failure Likely< 50 Years: > 450 pg/mL50-75 Years: > 900 pg/mL>75 Years: > 1800 pg/mL Pro- Brain NATRIURETIC PEPTI Jack 11-14-2024 Natriuretic peptide B (Bld) [Mass/Vol] 1730 pg/mL High <=900 [facility] Comment on above: Result Comment: Hear t Failure Unlikely: < 300 pg/mL Heart Failure Likely < 50 Years: > 450 pg/mL 50-75 Years: > 900 pg/mL >75 Years: > 1800 pg/mL Performed By: #### L 503.7505 #### [facility], [address] Absolute lymphocyte countOrd ered By: Remy Yancey on 10-28-2024 Lymphocytes Auto (Unsp spec) [#/Vol] 2.83 10*3/uL 0.83-4.51 [facility] Absolute neutrophil countOrd ered By: Remy Yancey on 10-28-2024 Neutrophils (Bld) [#/Vol] 5.3 10*3/uL 2.0-7.7 [facility] Anion gap in Serum or Plasma Ordered By: Remy Yancey on 10-28-2024 Anion gap [Moles/Vol] 11 mmol/L 5- [facility] Automated lymphocyte count a s percentage of total leukocytesOrdered By: Remy Yancey on 10-28-2024 Lymphocytes/100 WBC Auto (Unsp spec) 29.8 % 19-41 [facility] BUN/creatinine ratioOrdered By: Remy Yancey on 10-28-2024 Urea nitrogen/Creatinine [Mass ratio] 18.3 mg/mg 10-20 [facility] General Basophil percentageOrdered B y: Remy Yancey on 10-28-2024 Basophils/100 WBC (Bld) 0.6 % 0-1 [facility] Bilirubin, totalOrdered By: Remy Yancey on 10-28-2024 Bilirubin [Mass/Vol] 0.43 mg/dL 0.00-1.30 [facility] CBC W/Diff, Automatedon 10-01 Absolute Lymph 2.83 X10 3/uL Normal 0.83-4.51 [facility] Comment on above: Performed By: #### L 501.9910, L501.9520, L501.9985, L100.0100, L500.4050 #### [facility] [address] [place], [address] Absolute Neut 5.3 X10 3/uL Normal 2.0-7.7 [facility] Comment on above: Performed By: #### L 501.9910, L501.9520, L501.9985, L100.0100, L500.4050 #### [facility] [address] [place], [address] Basophils/100 WBC (Bld) 0.6 % Normal 0-1 [facility] Comment on above: Performed By: #### L 501.9910, L501.9520, L501.9985, L100.0100, L500.4050 #### [facility] [address] [place], [address] Eosinophils/100 WBC (Bld) 2.3 % Normal 0-5 [facility] Comment on above: Performed By: #### L 501.9910, L501.9520, L501.9985, L100.0100, L500.4050 #### [facility] [address] [place], [address] Erythrocyte distribution width (RBC) [Ratio] 13.7 % Normal 11.6-14.6 [facility] Comment on above: Performed By: #### L 501.9910, L501.9520, L501.9985, L100.0100, L500.4050 #### [facility] [address] [place], [address] Hematocrit (Bld) [Volume fraction] 42.4 % Normal 40-54 [facility] Comment on above: Performed By: #### L 501.9910, L501.9520, L501.9985, L100.0100, L500.4050 #### [facility] [address] [place], [address] Hemoglobin (Bld) [Mass/Vol] 13.8 g/dL Normal 13.0-16.5 [facility] Comment on above: Performed By: #### L 501.9910, L501.9520, L501.9985, L100.0100, L500.4050 #### [facility] [address] [place], [address] IG% 0.600 Normal 0.0-0.9 [facility] Comment on above: Result Comment: IG% - Immature Granulocytes (promyelocytes, myelocytes and metamyelocytes) > 1% indicates that a LEFT SHIFT is Present. Performed By: #### L 501.9910, L501.9520, L501.9985, L100.0100, L500.4050 #### [facility] [address] [place], [address] Lymphocytes/100 WBC (Bld) 29.8 % Normal 19-41 [facility] Comment on above: Performed By: #### L 501.9910, L501.9520, L501.9985, L100.0100, L500.4050 #### [facility] [address] [place], [address] MCH (RBC) [Entitic mass] 29.7 pg Normal 27.0-32.0 [facility] Comment on above: Performed By: #### L 501.9910, L501.9520, L501.9985, L100.0100, L500.4050 #### [facility] [address] [place], [address] MCHC (RBC) [Mass/Vol] 32.5 g/dL Normal 32-36 [facility] Comment on above: Performed By: #### L 501.9910, L501.9520, L501.9985, L100.0100, L500.4050 #### [facility] [address] [place], [address] MCV (RBC) [Entitic vol] 91.2 fL Normal 80-94 [facility] Comment on above: Performed By: #### L 501.9910, L501.9520, L501.9985, L100.0100, L500.4050 #### [facility] [address] [place], [address] Monocytes/100 WBC (Bld) 10.4 % High 0-10 [facility] Comment on above: Performed By: #### L 501.9910, L501.9520, L501.9985, L100.0100, L500.4050 #### [facility] [address] [place], [address] Neutrophils/100 WBC (Bld) 56.3 % Normal 47-70 [facility] Comment on above: Performed By: #### L 501.9910, L501.9520, L501.9985, L100.0100, L500.4050 #### [facility] [address] [place], [address] Nucleated RBC (Bld) [#/Vol] 0 10*3/uL Normal 0-5 [facility] Comment on above: Performed By: #### L 501.9910, L501.9520, L501.9985, L100.0100, L500.4050 #### [facility] [address] [place], [address] Platelet mean volume (Bld) [Entitic vol] 10.4 fL Normal 6.2-12.0 [facility] Comment on above: Performed By: #### L 501.9910, L501.9520, L501.9985, L100.0100, L500.4050 #### [facility] [address] [place], [address] Platelets (Bld) [#/Vol] 281 10*3/uL Normal 150-450 [facility] Comment on above: Performed By: #### L 501.9910, L501.9520, L501.9985, L100.0100, L500.4050 #### [facility] [address] [place], [address] RBC (Bld) [#/Vol] 4.65 10*6/uL Normal 4.6-6.2 [facility] Comment on above: Performed By: #### L 501.9910, L501.9520, L501.9985, L100.0100, L500.4050 #### [facility] [address] [place], [address] RDW SD 45.5 fl High 35.1-43.9 [facility] Comment on above: Performed By: #### L 501.9910, L501.9520, L501.9985, L100.0100, L500.4050 #### [facility] [address] [place], [address] WBC (Bld) [#/Vol] 9.5 10*3/uL Normal 4.4-11.0 [facility] Comment on above: Performed By: #### L 501.9910, L501.9520, L501.9985, L100.0100, L500.4050 #### [facility] [address] [place], [address] Carbon dioxide, total [Moles /volume] in Central venous bloodOrdered By: Remy Yancey on 10-28-2024 CO2 [Moles/Vol] 23.0 mmol/L 21.0-32.0 [facility] Chloride assayOrdered By: Clif Yancey on 10-28-2024 Chloride [Moles/Vol] 104 mmol/L 98-108 [facility] Comprehensive Metabolic Prof ilon 10-28-2024 Albumin [Mass/Vol] 4.3 g/dL Normal 3.4-4.8 [facility] Comment on above: Performed By: #### L 501.9910, L501.9520, L501.9985, L100.0100, L500.4050 ####[facility] [address] [place], [address] Albumin/Globulin [Mass ratio] 1.4 {ratio} Normal 0.9-2.4 [facility] Comment on above: Performed By: #### L 501.9910, L501.9520, L501.9985, L100.0100, L500.4050 ####[facility] [address] [place], [address] ALK PHOS 86 U/L Normal 40-129 [facility] Comment on above: Performed By: #### L 501.9910, L501.9520, L501.9985, L100.0100, L500.4050 ####[facility] [address] [place], [address] ALT [Catalytic activity/Vol] 33 U/L Normal <=46 [facility] Comment on above: Performed By: #### L 501.9910, L501.9520, L501.9985, L100.0100, L500.4050 ####[facility] [address] [place], [address] AST [Catalytic activity/Vol] 37 U/L Normal <=37 [facility] Comment on above: Performed By: #### L 501.9910, L501.9520, L501.9985, L100.0100, L500.4050 ####[facility] [address] [place], [address] Bilirubin [Mass/Vol] 0.43 mg/dL Normal 0.00-1.30 [facility] Comment on above: Performed By: #### L 501.9910, L501.9520, L501.9985, L100.0100, L500.4050 ####[facility] [address] [place], [address] BUN/CRE 18.3 RATIO Normal 10-20 [facility] Comment on above: Performed By: #### L 501.9910, L501.9520, L501.9985, L100.0100, L500.4050 ####[facility] [address] [place], [address] Calcium [Mass/Vol] 9.4 mg/dL Normal 7.6-11.0 [facility] Comment on above: Performed By: #### L 501.9910, L501.9520, L501.9985, L100.0100, L500.4050 ####[facility] [address] [place], [address] Chloride [Moles/Vol] 104 mmol/L Normal 98-108 [facility] Comment on above: Performed By: #### L 501.9910, L501.9520, L501.9985, L100.0100, L500.4050 ####[facility] [address] [place], [address] CO2 [Moles/Vol] 23.0 mmol/L Normal 21.0-32.0 [facility] Comment on above: Performed By: #### L 501.9910, L501.9520, L501.9985, L100.0100, L500.4050 ####[facility] [address] [place], [address] Creatinine [Mass/Vol] 1.32 mg/dL High 0.70-1.20 [facility] Comment on above: Performed By: #### L 501.9910, L501.9520, L501.9985, L100.0100, L500.4050 ####[facility] [address] [place], [address] GAP 11 Normal 5-15 [facility] Comment on above: Performed By: #### L 501.9910, L501.9520, L501.9985, L100.0100, L500.4050 ####[facility] [address] [place], [address] GFR/1.73 sq M.predicted among non-blacks MDRD (S/P/Bld) [Vol rate/Area] 58 mL/min/{1.73_m2} Low >60 [facility] Comment on above: Result Comment: mL/m in/1.73m2 CKD-EPI Creatinine Equation (2020) Performed By: #### L 501.9910, L501.9520, L501.9985, L100.0100, L500.4050 ####[facility] [address] [place], [address] Globulin (S) [Mass/Vol] 3.2 g/dL Normal 2.2-4.2 [facility] Comment on above: Performed By: #### L 501.9910, L501.9520, L501.9985, L100.0100, L500.4050 ####[facility] [address] [place], [address] Glucose [Mass/Vol] 170 mg/dL High 70-99 [facility] Comment on above: Performed By: #### L 501.9910, L501.9520, L501.9985, L100.0100, L500.4050 ####[facility] [address] [place], [address] Potassium [Moles/Vol] 5.3 mmol/L High 3.3-5.1 [facility] Comment on above: Performed By: #### L 501.9910, L501.9520, L501.9985, L100.0100, L500.4050 ####[facility] [address] [place], [address] Sodium [Moles/Vol] 138 mmol/L Normal 133-145 [facility] Comment on above: Performed By: #### L 501.9910, L501.9520, L501.9985, L100.0100, L500.4050 ####[facility] [address] [place], [address] T PROT 7.5 g/dL Normal 5.9-8.4 [facility] Comment on above: Performed By: #### L 501.9910, L501.9520, L501.9985, L100.0100, L500.4050 ####[facility] [address] [place], [address] Urea nitrogen [Mass/Vol] 24 mg/dL High 4-19 [facility] Comment on above: Performed By: #### L 501.9910, L501.9520, L501.9985, L100.0100, L500.4050 ####[facility] [address] [place], [address] Eosinophil percentageOrdered By: Remy Yancey on 10-28-2024 Eosinophils/100 WBC (Bld) 2.3 % 0-5 [facility] Erythrocyte distribution wid th ratioOrdered By: Remy Yancey on 10-28-2024 Erythrocyte distribution width (RBC) [Ratio] 13.7 % 11.6-14.6 [facility] Erythrocyte distribution wid th standard deviationOrdered By: Remy Yancey on 10-28-2024 Erythrocyte distribution width (RBC) [Ratio] 45.5 fl High 35.1-43.9 [facility] Glomerular filtration rate ( GFR) estimation/1.73 sq m using serum, plasma, or whole bOrdered By: Remy Yancey on 10-28-2024 GFR/1.73 sq M.predicted among non-blacks MDRD (S/P/Bld) [Vol rate/Area] 58 mL/min/{1.73_m2} Low >60 [facility] Comment on above: mL/min/1.73m2 CKD-EP I Creatinine Equation (2020) Hematocrit Auto (Bld) [Volum e fraction]Ordered By: Remy Yancey on 10-28-2024 Hematocrit (Bld) [Volume fraction] 42.4 % 40-54 [facility] Hemoglobin A1con 10-28-2024 HbA1c (Bld) [Mass fraction] 7.5 % High <=5.6 [facility] Comment on above: Result Comment: Norm al < 5.7 % Prediabetic 5.7 - 6.4 % Diabetic >or= 6.5 % Please note range changes. Performed By: #### L 501.9910, L501.9520, L501.9985, L100.0100, L500.4050 #### [facility], [address] Hemoglobin A1c percentageOrd ered By: Remy Yancey on 10-28-2024 HbA1c (Bld) [Mass fraction] 7.5 % High <5.7 [facility] Comment on above: Normal < 5.7 % Predi abetic 5.7 - 6.4 % Diabetic >or= 6.5 % Please note range changes. Hemoglobin measurementOrdere d By: Remy Yancey on 10-28-2024 Hemoglobin (Bld) [Mass/Vol] 13.8 g/dL 13.0-16.5 [facility] Immature granulocytes/100 WB C Auto (Bld)Ordered By: Remy Yancey on 10-28-2024 Immature granulocytes/100 WBC (Bld) 0.600 % 0.0-0.9 [facility] Comment on above: IG% - Immature Granu locytes (promyelocytes, myelocytes and metamyelocytes) > 1% indicates that a LEFT SHIFT is Present. Laboratory - Chemistry and C hemistry - challengeOrdered By: Remy Yancey on 10-28-2024 AST [Catalytic activity/Vol] 37 U/L <38 [facility] MCV (mean corpuscular volume ) determinationOrdered By: Remy Yancey on 10-28-2024 MCV (RBC) [Entitic vol] 91.2 fL 80-94 [facility] Mean corpuscular hemoglobin (MCH) determinationOrdered By: Remy Yancey on 10-28-2024 MCH (RBC) [Entitic mass] 29.7 pg 27.0-32.0 [facility] Mean corpuscular hemoglobin concentration (MCHC) determinationOrdered By: Remy Yancey on 10-28-2024 MCHC (RBC) [Mass/Vol] 32.5 g/dL 32-36 [facility] Mean platelet volume determi nationOrdered By: Remy Yancey on 10-28-2024 Platelet mean volume (Bld) [Entitic vol] 10.4 fL 6.2-12.0 [facility] Monocyte percentageOrdered B y: Remy Yancey on 10-28-2024 Monocytes/100 WBC (Bld) 10.4 % High 0-10 [facility] Neutrophil percentageOrdered By: Remy Yancey on 10-28-2024 Neutrophils/100 WBC (Bld) 56.3 % 47-70 [facility] Nucleated red blood cell per centageOrdered By: Remy Yancey on 10-28-2024 Nucleated RBC/100 WBC (Bld) [Ratio] 0 % 0-5 [facility] PSA,Total - Annual Screenon 10-28-2024 PSA,TOT SCREEN 0.51 ng/mL Normal 0.02-4.00 [facility] Comment on above: Result Comment: This test [...] confirm baseline values. Performed By: #### L 501.9910, L501.9520, L501.9985, L100.0100, L500.4050 ####[facility] [address] [place], [address] Platelet countOrdered By: Clif Yancey on 10-28-2024 Platelets (Bld) [#/Vol] 281 10*3/uL 150-450 [facility] Potassium measurement (mass/ volume)Ordered By: Remy Yancey on 10-28-2024 Potassium (Unsp spec) [Mass/Vol] 5.3 mmol/L High 3.3-5.1 [facility] RBC Auto (Bld) [#/Vol]Ordere d By: Remy Yancey on 10-28-2024 RBC (Bld) [#/Vol] 4.65 10*6/uL 4.6-6.2 [facility] Serum creatinine measurement (mass/volume)Ordered By: Remy Yancey on 10-28-2024 Creatinine [Mass/Vol] 1.32 mg/dL High 0.70-1.20 [facility] Serum globulin measurementOr dered By: Remy Yancey on 10-28-2024 Globulin (S) [Mass/Vol] 3.2 g/dL 2.2-4.2 [facility] Serum glucose measurement (m ass/volume)Ordered By: Remy Yancey on 10-28-2024 Glucose [Mass/Vol] 170 mg/dL High 70-99 [facility] Serum or plasma alanine carlson otransferase (ALT) measurementOrdered By: Remy Yancey on 10-28-2024 ALT [Catalytic activity/Vol] 33 U/L <47 [facility] Serum or plasma albumin narendra urement (mass/volume)Ordered By: Remy Yancey on 10-28-2024 Albumin [Mass/Vol] 4.3 g/dL 3.4-4.8 [facility] Serum or plasma albumin/glob ulin mass ratioOrdered By: Remy Yancey on 10-28-2024 Albumin/Globulin [Mass ratio] 1.4 {ratio} 0.9-2.4 [facility] Serum or plasma alkaline ej sphatase measurementOrdered By: Remy Yancey on 10-28-2024 ALP [Catalytic activity/Vol] 86 U/L 40-129 [facility] Serum or plasma calcium narendra urement (mass/volume)Ordered By: Remy Yancey on 10-28-2024 Calcium [Mass/Vol] 9.4 mg/dL 7.6-11.0 [facility] Serum or plasma urea nitroge n measurement (mass/volume)Ordered By: Remy Yancey on 10-28-2024 Urea nitrogen [Mass/Vol] 24 mg/dL High 4-19 [facility] Sodium levelOrdered By: Remy Yancey on 10-28-2024 Sodium [Moles/Vol] 138 mmol/L 133-145 [facility] TSH DL <= 0.005 mIU/L QnOrde red By: Remy Yancey on 10-28-2024 TSH Qn 5.310 uIU/mL High 0.300-4.20 0 [facility] Thyroid Stim Hormone (TSH)on 10-28-2024 TSH 5.310 uIU/mL High 0.300-4.20 0 [facility] Comment on above: Performed By: #### L 501.9910, L501.9520, L501.9985, L100.0100, L500.4050 ####[facility] [address] [place], [address] Total proteinOrdered By: Rosana Yancey on 10-28-2024 Protein [Mass/Vol] 7.5 g/dL 5.9-8.4 [facility] White blood cell (WBC) count Ordered By: Remy Yancey on 10-28-2024 WBC (Bld) [#/Vol] 9.5 10*3/uL 4.4-11.0 [facility] Microalb:Creat Ratio,Random URon 08-23-2024 MALB:CREAT 46.4 mg/g CRE Normal [facility] Comment on above: Result Comment: AMENDED REPORT 08/23/24 1267 MALB:CREAT previously reported as: 464.0 mg/g CRE Performed By: #### L 502.0250 #### [facility] [address] [place], [address] Random urine creatinine narendra urement (mass/volume)Ordered By: Remy Yancey on 08-09-2024 Creatinine Unsp time (U) [Mass/Vol] 59.70 mg/dL 39.00-259. 00 [facility] Urine albumin measurement wi th detection limit of 20 mg/L or less (mass/volume)Ordered By: Remy Yancey on 08-09-2024 Albumin DL <= 20 mg/L (U) [Mass/Vol] 27.7 mg/L NO RANGE EST. [facility] Tacrolimus (Prograf)on 07-18 Tacrolimus (Bld) [Mass/Vol] 2.5 ng/mL Low 5.0-20.0 [facility] Comment on above: Order Comment: Test( s) [id number] (FK506), Bloodwas developed and its performance characteristicsdetermined by [employer]. It has not been cleared or approvedby the Food and Drug Administration. Result Comment: [...] ng/mL Performed by LC-MS/MS technology. Performed at: [address] [id number] [employer] Operator: Clark Burch MD, Phone: [phone] Performed By: #### L 500.4050, L500.4100, L3380.1000 ####[facility] [address] [place], [place], [id number] Anion gap in Serum or Plasma Ordered By: Remy Yancey on 07-14-2024 Anion gap [Moles/Vol] 13 mmol/L 07-14 [facility] BUN/creatinine ratioOrdered By: Remy Yancey on 07-14-2024 Urea nitrogen/Creatinine [Mass ratio] 11.2 mg/mg 12-19 [facility] Bilirubin, totalOrdered By: Remy Yancey on 07-14-2024 Bilirubin [Mass/Vol] 0.35 mg/dL 0.00-1.30 [facility] Calculated very low density lipoprotein (VLDL) cholesterol measurementOrdered By: Remy Yancey on 07-14-2024 Calculated very low density lipoprotein (VLDL) cholesterol measurement 43 mg/dL High 5-40 [facility] Carbon dioxide, total [Moles /volume] in Central venous bloodOrdered By: Remy Yancey on 07-14-2024 CO2 [Moles/Vol] 24.9 mmol/L 21.0-32.0 [facility] Chloride assayOrdered By: Clif Yancey on 07-14-2024 Chloride [Moles/Vol] 103 mmol/L 98-108 [facility] Comprehensive Metabolic Prof ilon 07-14-2024 Albumin [Mass/Vol] 4.4 g/dL Normal 3.4-4.8 [facility] Comment on above: Performed By: #### L 500.4050, L500.4100, L3380.1000 ####[facility] [address] [place], [address] Albumin/Globulin [Mass ratio] 1.4 {ratio} Normal 0.9-2.4 [facility] Comment on above: Performed By: #### L 500.4050, L500.4100, L3380.1000 ####[facility] [address] [place], [address] ALK PHOS 87 U/L Normal 40-129 [facility] Comment on above: Performed By: #### L 500.4050, L500.4100, L3380.1000 ####[facility] [address] [place], [address] ALT [Catalytic activity/Vol] 46 U/L Normal <=46 [facility] Comment on above: Performed By: #### L 500.4050, L500.4100, L3380.1000 ####[facility] [address] [place], [address] AST [Catalytic activity/Vol] 68 U/L High <=37 [facility] Comment on above: Performed By: #### L 500.4050, L500.4100, L3380.1000 ####[facility] [address] [place], [address] Bilirubin [Mass/Vol] 0.35 mg/dL Normal 0.00-1.30 [facility] Comment on above: Performed By: #### L 500.4050, L500.4100, L3380.1000 ####[facility] [address] [place], [address] BUN/CRE 11.2 RATIO Normal 10-20 [facility] Comment on above: Performed By: #### L 500.4050, L500.4100, L3380.1000 ####[facility] [address] [place], [address] Calcium [Mass/Vol] 9.6 mg/dL Normal 7.6-11.0 [facility] Comment on above: Performed By: #### L 500.4050, L500.4100, L3380.1000 ####[facility] [address] [place], [address] Chloride [Moles/Vol] 103 mmol/L Normal 98-108 [facility] Comment on above: Performed By: #### L 500.4050, L500.4100, L3380.1000 ####[facility] [address] [place], [address] CO2 [Moles/Vol] 24.9 mmol/L Normal 21.0-32.0 [facility] Comment on above: Performed By: #### L 500.4050, L500.4100, L3380.1000 ####[facility] [address] [place], [address] Creatinine [Mass/Vol] 1.28 mg/dL High 0.70-1.20 [facility] Comment on above: Performed By: #### L 500.4050, L500.4100, L3380.1000 ####[facility] [address] [place], [address] GAP 13 Normal 5-15 [facility] Comment on above: Performed By: #### L 500.4050, L500.4100, L3380.1000 ####[facility] [address] [place], [address] GFR/1.73 sq M.predicted among non-blacks MDRD (S/P/Bld) [Vol rate/Area] 60 mL/min/{1.73_m2} Normal >60 [facility] Comment on above: Result Comment: mL/m in/1.73m2 CKD-EPI Creatinine Equation (2020) Performed By: #### L 500.4050, L500.4100, L3380.1000 ####[facility] [address] [place], [address] Globulin (S) [Mass/Vol] 3.2 g/dL Normal 2.2-4.2 [facility] Comment on above: Performed By: #### L 500.4050, L500.4100, L3380.1000 ####[facility] [address] [place], [address] Glucose [Mass/Vol] 116 mg/dL High 70-99 [facility] Comment on above: Performed By: #### L 500.4050, L500.4100, L3380.1000 ####[facility] [address] [place], [address] Potassium [Moles/Vol] 5.1 mmol/L Normal 3.3-5.1 [facility] Comment on above: Performed By: #### L 500.4050, L500.4100, L3380.1000 ####[facility] [address] [place], [address] Sodium [Moles/Vol] 141 mmol/L Normal 133-145 [facility] Comment on above: Performed By: #### L 500.4050, L500.4100, L3380.1000 ####[facility] [address] [place], [address] T PROT 7.7 g/dL Normal 5.9-8.4 [facility] Comment on above: Performed By: #### L 500.4050, L500.4100, L3380.1000 ####[facility] [address] [place], [address] Urea nitrogen [Mass/Vol] 14 mg/dL Normal 4-19 [facility] Comment on above: Performed By: #### L 500.4050, L500.4100, L3380.1000 ####[facility] [address] [place], [address] Glomerular filtration rate ( GFR) estimation/1.73 sq m using serum, plasma, or whole bOrdered By: Remy Yancey on 07-14-2024 GFR/1.73 sq M.predicted among non-blacks MDRD (S/P/Bld) [Vol rate/Area] 60 mL/min/{1.73_m2} >60 [facility] Comment on above: mL/min/1.73m2 CKD-EP I Creatinine Equation (2020) LDL calc ser/plasOrdered By: Remy Yancey on 07-14-2024 Cholesterol in LDL [Mass/Vol] 37 mg/dL [facility] Comment on above: Rsdjolozge=824-115 m g/dL & Higher Sqvw=844 mg/dL or greater Laboratory - Chemistry and C hemistry - challengeOrdered By: Remy Yancey on 07-14-2024 AST [Catalytic activity/Vol] 68 U/L High <38 [facility] Lipid Profileon 07-14-2024 CHOL:HDL 2.99 Normal [facility] Comment on above: Performed By: #### L 500.4050, L500.4100, L3380.1000 ####[facility] [address] [place], [address] Cholesterol [Mass/Vol] 120 mg/dL Normal <=200 [facility] Comment on above: Result Comment: Chol esterol level, Desirable <200 mg/dL Borderline high cholesterol 200-239 mg/dL High cholesterol >=240 mg/dL Recommendations of the NCEP Adult Treatment Panel for the following risk-cutoff thresholds for the [place] population. Performed By: #### L 500.4050, L500.4100, L3380.1000 ####[facility] [address] [place], [address] Cholesterol in HDL [Mass/Vol] 40 mg/dL Normal [facility] Comment on above: Result Comment: Stacey onal Cholesterol Education Program (NCEP) guidelines: <40 mg/dL: Low HDL-cholesterol (major risk factor for CHD) >= 60 mg/dL: High HDL-cholesterol (negative risk factor for CHD) HDL-cholesterol is affected by a number of factors, e.g. smoking, exercise, hormones, sex and age. Performed By: #### L 500.4050, L500.4100, [id number] ####[facility] [address] [place], [address] Cholesterol in LDL [Mass/Vol] 37 mg/dL Normal [facility] Comment on above: Result Comment: Bord dwpnuz=935-192 mg/dL Higher Mziv=138 mg/dL or greater Performed By: #### L 500.4050, L500.4100, [id number] ####[facility] [address] [place], [address] Cholesterol in VLDL [Mass/Vol] 43 mg/dL High 5-40 [facility] Comment on above: Performed By: #### L 500.4050, L500.4100, [id number] ####[facility] [address] [place], [address] Triglyceride [Mass/Vol] 213 mg/dL High [facility] Comment on above: Result Comment: The drugs N-Acetylcysteine and Metamizole may falsely depress this assay. Normal range: <150 mg/dL Borderline High: 150-199 mg/dL High: 200-499 mg/dL Very High: >500 mg/dL Performed By: #### L 500.4050, L500.4100, [id number] ####[facility] [address] [place], [address] Potassium measurement (mass/ volume)Ordered By: Remy Yancey on 07-14-2024 Potassium (Unsp spec) [Mass/Vol] 5.1 mmol/L 3.3-5.1 [facility] Screening total cholesterol/ high density lipoprotein (HDL) cholesterol ratioOrdered By: Remy Yancey on 07-14-2024 Cholesterol.total/Chol esterol in HDL [Mass ratio] 2.99 {ratio} [facility] Serum creatinine measurement (mass/volume)Ordered By: Remy Yancey on 07-14-2024 Creatinine [Mass/Vol] 1.28 mg/dL High 0.70-1.20 [facility] Serum globulin measurementOr dered By: Remy Yancey on 07-14-2024 Globulin (S) [Mass/Vol] 3.2 g/dL 2.2-4.2 [facility] Serum glucose measurement (m ass/volume)Ordered By: Remy Yancey on 07-14-2024 Glucose [Mass/Vol] 116 mg/dL High 70-99 [facility] Serum or plasma alanine carlson otransferase (ALT) measurementOrdered By: Remy Yancey on 07-14-2024 ALT [Catalytic activity/Vol] 46 U/L <47 [facility] Serum or plasma albumin narendra urement (mass/volume)Ordered By: Remy Yancey on 07-14-2024 Albumin [Mass/Vol] 4.4 g/dL 3.4-4.8 [facility] Serum or plasma albumin/glob ulin mass ratioOrdered By: Remy Yancey on 07-14-2024 Albumin/Globulin [Mass ratio] 1.4 {ratio} 0.9-2.4 [facility] Serum or plasma alkaline ej sphatase measurementOrdered By: Remy Yancey on 07-14-2024 ALP [Catalytic activity/Vol] 87 U/L 40-129 [facility] Serum or plasma calcium narendra urement (mass/volume)Ordered By: Remy Yancey on 07-14-2024 Calcium [Mass/Vol] 9.6 mg/dL 7.6-11.0 [facility] Serum or plasma cholesterol in HDL measurement (mass/volume)Ordered By: Remy Yancey on 07-14-2024 Cholesterol in HDL [Mass/Vol] 40 mg/dL >40 [facility] Comment on above: National Cholesterol Education Program (NCEP) guidelines:<40 mg/dL: Low HDL-cholesterol (major risk factor for CHD)>= 60 mg/dL: High HDL-cholesterol (negative risk factor for CHD)HDL-cholesterol is affected by a number of factors, e.g. smoking, exercise, hormones, sex and age. Serum or plasma cholesterol measurement (mass/volume)Ordered By: Remy Yancey on 07-14-2024 Cholesterol [Mass/Vol] 120 mg/dL <201 [facility] Comment on above: Cholesterol level, D esirable <200 mg/dLBorderline high cholesterol 200-239 mg/dLHigh cholesterol >=240 mg/dLRecommendations of the NCEP Adult Treatment Panel for the following risk-cutoff thresholds for the [place] population. Serum or plasma urea nitroge n measurement (mass/volume)Ordered By: Remy Yancey on 07-14-2024 Urea nitrogen [Mass/Vol] 14 mg/dL 4-19 [facility] Sodium levelOrdered By: Remy Yancey on 07-14-2024 Sodium [Moles/Vol] 141 mmol/L 133-145 [facility] Total proteinOrdered By: Rosana Yancey on 07-14-2024 Protein [Mass/Vol] 7.7 g/dL 5.9-8.4 [facility] Triglycerides measurementOrd ered By: Remy Yancey on 07-14-2024 Triglyceride [Mass/Vol] 213 mg/dL High <199 [facility] Comment on above: The drugs N-Acetylcy steine and Metamizole may falsely depress this assay. Normal range: <150 mg/dLBorderline High: 150-199 mg/dLHigh: 200-499 mg/dLVery High: >500 mg/dL Basophil percentageOrdered B y: Remy Yancey on 06-19-2023 Bilirubin [Mass/Vol] 0.50 mg/dL 0.20-1.00 [facility] Comment on above: For patients on eltr ombopag therapy, use of Dimension [place] TBIL is not recommended. Chloride [Moles/Vol] 108 mmol/L 98-107 [facility] Cholesterol [Mass/Vol] 119 mg/dL <200 [facility] Comment on above: <200 mg/dL Desirable 200-240 mg/dL Borderline >240 mg/dL High Risk Glucose [Mass/Vol] 125 mg/dL 74-106 [facility] Comment on above: Fasting Glucose resu lt from 100 to 125 mg/dL suggests IMPAIRED HOMEOSTASIS per A.D.A. criteria. Potassium [Moles/Vol] 4.7 mmol/L 3.5-5.1 [facility] Protein [Mass/Vol] 7.9 g/dL 6.4-8.2 [facility] Sodium [Moles/Vol] 141 mmol/L 136-145 [facility] Triglyceride [Mass/Vol] 402 mg/dL <199 [facility] Comment on above: The drugs N-Acetylcy steine [...] 06-19-2023 Albumin/Globulin [Mass ratio] 1.0 {ratio} 0.9-2.4 [facility] ALP [Catalytic activity/Vol] 92 U/L 45-117 [facility] ALT [Catalytic activity/Vol] 42 U/L 16-61 [facility] Cholesterol in HDL [Mass/Vol] 34 mg/dL >40 [facility] Comment on above: The drugs N-Acetylcy steine and Metamizole may falsely depress this assay. Reference Range HDL <40 mg/dL Low HDL Cholesterol HDL >or= 60 mg/dL High HDL Cholesterol CO2 [Moles/Vol] 29.0 mmol/L 21.0-32.0 [facility] Globulin (S) [Mass/Vol] 4.0 g/dL 2.2-4.2 [facility] Urea nitrogen/Creatinine [Mass ratio] 15.3 mg/mg 10-20 [facility] No Panel InformationOrdered By: Remy Yancey on 06-19-2023 Estimated GFR (MDRD) Amer 59 mL/min >60 [facility] Comment on above: GFR Calc Estimated GFR (MDRD) Non-Af Amer 49 mL/min >60 [facility] Comment on above: Non- GFR Calc LDL Cholesterol [facility] Comment on above: Test not performed VLDL Cholesterol [facility] Comment on above: Test not performed Serum or plasma calcium narendra urement (mass/volume)Ordered By: Remy Yancey on 06-19-2023 Calcium [Mass/Vol] 10.1 mg/dL 8.5-10.1 [facility] Serum or plasma creatinine m easurement (mass/volume)Ordered By: Remy Yancey on 06-19-2023 Creatinine [Mass/Vol] 1.50 mg/dL 0.70-1.30 [facility] Comment on above: The validity of the calculated GFR & GFRAA in patients over 70 years has not been determined. Clinical correlation is essential. Serum or plasma urea nitroge n measurement (mass/volume)Ordered By: Remy Yancey on 06-19-2023 Urea nitrogen [Mass/Vol] 23 mg/dL 7-18 [facility] Thin prep Papanicolaou smear with manual screeningOrdered By: Remy Yancey on 06-19-2023 Thin prep Papanicolaou smear with manual screening 3.9 g/dL 3.2-5.0 [facility] Thin prep Papanicolaou smear with manual screening 33 U/L 15-37 [facility] Thin prep Papanicolaou smear with manual screening 4 5-15 [facility] Absolute lymphocyte countOrd ered By: Remy Yancey on 12-18-2022 Lymphocytes Auto (Unsp spec) [#/Vol] 2.56 10*3/uL 0.83-4.51 [facility] Basophil percentageOrdered B y: Remy Yancey on 12-18-2022 Basophils/100 WBC (Bld) 0.4 % 0-1 [facility] Bilirubin [Mass/Vol] 0.40 mg/dL 0.20-1.00 [facility] Comment on above: For patients on eltr ombopag therapy, use of Dimension [place] TBIL is not recommended. Chloride [Moles/Vol] 106 mmol/L 98-107 [facility] Cholesterol [Mass/Vol] 124 mg/dL <200 [facility] Comment on above: <200 mg/dL Desirable 200-240 mg/dL Borderline >240 mg/dL High Risk Eosinophils/100 WBC (Bld) 3.0 % 0-5 [facility] Glucose [Mass/Vol] 120 mg/dL 74-106 [facility] Comment on above: Fasting Glucose resu lt from 100 to 125 mg/dL suggests IMPAIRED HOMEOSTASIS per A.D.A. criteria. Neutrophils (Bld) [#/Vol] 3.9 10*3/uL 2.0-7.7 [facility] Neutrophils/100 WBC (Bld) 53.1 % 47-70 [facility] Potassium [Moles/Vol] 4.6 mmol/L 3.5-5.1 [facility] Protein [Mass/Vol] 8.0 g/dL 6.4-8.2 [facility] Sodium [Moles/Vol] 142 mmol/L 136-145 [facility] Triglyceride [Mass/Vol] 206 mg/dL <199 [facility] Comment on above: The drugs N-Acetylcy steine and Metamizole may falsely depress this assay.Serum Triglycerides Reference Interval Normal <150 mg/dL Borderline high 150 - 199 mg/dL High 200 - 499 mg/dL Very High > or = 500 mg/dL WBC (Bld) [#/Vol] 7.4 10*3/uL 4.4-11.0 [facility] Blood erythrocytes count (nu mber/volume)Ordered By: Remy Yancey on 12-18-2022 RBC (Bld) [#/Vol] 4.63 10*6/uL 4.6-6.2 [facility] Blood hemoglobin measurement (mass/volume)Ordered By: Remy Yancey on 12-18-2022 Hemoglobin (Bld) [Mass/Vol] 13.9 g/dL 13.0-16.5 [facility] Blood lymphocytes/100 leukoc ytesOrdered By: Remy Yancey on 12-18-2022 Lymphocytes/100 WBC (Bld) 34.8 % 19-41 [facility] Blood monocytes/100 leukocyt esOrdered By: Remy Yancey on 12-18-2022 Monocytes/100 WBC (Bld) 8.4 % 0-10 [facility] Blood platelet mean volumeOr dered By: Remy Yancey on 12-18-2022 Platelet mean volume (Bld) [Entitic vol] 10.5 fL 6.2-12.0 [facility] Determination of erythrocyte mean corpuscular volume (MCV)Ordered By: Remy Yancey on 12-18-2022 MCV (RBC) [Entitic vol] 92.7 fL 80-94 [facility] Hematocrit Auto (Bld) [Volum e fraction]Ordered By: Remy Yancey on 12-18-2022 Hematocrit (Bld) [Volume fraction] 42.9 % 40-54 [facility] Laboratory - Chemistry and C hemistry - challengeOrdered By: Remy Yancey on 12-18-2022 ALP [Catalytic activity/Vol] 90 U/L 45-117 [facility] ALT [Catalytic activity/Vol] 45 U/L 16-61 [facility] CO2 [Moles/Vol] 27.0 mmol/L 21.0-32.0 [facility] Globulin (S) [Mass/Vol] 4.1 g/dL 2.2-4.2 [facility] Urea nitrogen/Creatinine [Mass ratio] 12.3 mg/mg 10-20 [facility] Laboratory - Hematology and Cell countsOrdered By: Remy Yancey on 12-18-2022 Erythrocyte distribution width (RBC) [Entitic vol] 45.8 fL 35.1-43.9 [facility] Erythrocyte distribution width (RBC) [Ratio] 13.4 % 11.6-14.6 [facility] Immature granulocytes/100 WBC (Bld) 0.300 % 0.0-0.9 [facility] Comment on above: IG% - Immature Granu locytes (promyelocytes, myelocytes and metamyelocytes) > 1% indicates that a LEFT SHIFT is Present. MCH (RBC) [Entitic mass] 30.0 pg 27.0-32.0 [facility] Nucleated RBC/100 WBC (Bld) [Ratio] 0 % 0-5 [facility] MCHC Auto (RBC) [Mass/Vol]Or dered By: Remy Yancey on 12-18-2022 MCHC (RBC) [Mass/Vol] 32.4 g/dL 32-36 [facility] No Panel InformationOrdered By: Remy Yancey on 12-18-2022 Estimated GFR (MDRD) Amer 82 mL/min >60 [facility] Comment on above: GFR Calc Estimated GFR (MDRD) Non-Af Amer 68 mL/min >60 [facility] Comment on above: Non- GFR Calc Prostate Specific Antigen Screen 0.58 ng/mL 0.00-4.00 [facility] Comment on above: This test was perfor med using the TPSA assay method for [employer] chemistry system. Values obtained with differentassay methods cannot be used interchangably.When changing PSA assays in the course of monitoring apatient, additional sequential testing should be carriedout to confirm baseline values. Tacrolimus (Prograf) Level 2.6 ng/mL 2.0-20.0 [facility] Comment on above: Trough (immediately following transplant) 15.0 Trough (steady state, 2 weeks or more after transplant): 3.0 - 8.0 Performed by LC-MS/MS technology.Performed at: [facility] [id number] Director: Clark Burch MD, Phone: [phone] Urine Microalbumin/Creatinin e Ratio 244.0 mg/g CRE <30 [facility] Vitamin D 25-Hydroxy 23.5 ng/mL [facility] Comment on above: Vitamin D 25(OH) Sta tus Range Deficiency <20 ng/mL (50nmol/L) Insufficiency 20 - 30 ng/mL (50 - 75 nmol/L) Sufficiency 30 - 100 ng/mL (75 - 250 nmol/L) Toxicity >100 ng/mL (>250 nmol/L) Platelets bldOrdered By: Rosana Yancey on 12-18-2022 Platelets (Bld) [#/Vol] 268 10*3/uL 150-450 [facility] Serum or plasma albumin narendra urement (mass/volume)Ordered By: Remy Yancey on 12-18-2022 Albumin [Mass/Vol] 3.9 g/dL 3.2-5.0 [facility] Serum or plasma albumin/glob ulin mass ratioOrdered By: Remy Yancey on 12-18-2022 Albumin/Globulin [Mass ratio] 1.0 {ratio} 0.9-2.4 [facility] Serum or plasma calcium narendra urement (mass/volume)Ordered By: Remy Yancey on 12-18-2022 Calcium [Mass/Vol] 9.3 mg/dL 8.5-10.1 [facility] Serum or plasma cholesterol in HDL measurement (mass/volume)Ordered By: Remy Yancey on 12-18-2022 Cholesterol in HDL [Mass/Vol] 44 mg/dL >40 [facility] Comment on above: The drugs N-Acetylcy steine and Metamizole may falsely depress this assay. Reference Range HDL <40 mg/dL Low HDL Cholesterol HDL >or= 60 mg/dL High HDL Cholesterol Serum or plasma cholesterol in VLDL measurement (mass/volume)Ordered By: Remy Yancey on 12-18-2022 Cholesterol in VLDL [Mass/Vol] 41 mg/dL 5-40 [facility] Serum or plasma creatinine m easurement (mass/volume)Ordered By: Remy Yancey on 12-18-2022 Creatinine [Mass/Vol] 1.14 mg/dL 0.70-1.30 [facility] Comment on above: The validity of the calculated GFR & GFRAA in patients over 70 years has not been determined. Clinical correlation is essential. Serum or plasma low density lipoprotein (LDL) cholesterol measurement (mass/volume)Ordered By: Remy Yancey on 12-18-2022 Cholesterol in LDL [Mass/Vol] 39 mg/dL 0-130 [facility] Serum or plasma urea nitroge n measurement (mass/volume)Ordered By: Remy Yancey on 12-18-2022 Urea nitrogen [Mass/Vol] 14 mg/dL 7-18 [facility] Thin prep Papanicolaou smear with manual screeningOrdered By: Remy Yancey on 12-18-2022 Thin prep Papanicolaou smear with manual screening 43 U/L 15-37 [facility] Thin prep Papanicolaou smear with manual screening 9 5-15 [facility] Thin prep Papanicolaou smear with manual screening 122.0 mg/L NO RANGE EST. [facility] Urine creatinine measurement (mass/volume)Ordered By: Remy Yancey on 12-18-2022 Creatinine (U) [Mass/Vol] 50.00 mg/dL NO RANGE EST. [facility] Whole blood hemoglobin A1c/t otal hemoglobin ratio (mass fraction)Ordered By: Remy Yancey on 12-18-2022 HbA1c (Bld) [Mass fraction] 7.4 % 3.8-5.6 [facility] Comment on above: Normal < 5.7 % Predi abetic 5.7 - 6.4 % Diabetic >or= 6.5 % Please note range changes. Basophil percentageon 2021 Bilirubin [Mass/Vol] 0.40 mg/dL 0.20-1.00 [facility] Work Phone: Comment on above: For patients on eltr ombopag therapy, use of Dimension [place] TBIL is not recommended. Chloride [Moles/Vol] 109 mmol/L 98-107 [facility] Work Phone: Glucose [Mass/Vol] 99 mg/dL 74-106 [facility] Work Phone: Potassium [Moles/Vol] 4.8 mmol/L 3.5-5.1 [facility] Work Phone: Protein [Mass/Vol] 7.5 g/dL 6.4-8.2 [facility] Work Phone: Sodium [Moles/Vol] 139 mmol/L 136-145 [facility] Work Phone: Laboratory - Chemistry and C hemistry - challengeon 12-25-2021 ALP [Catalytic activity/Vol] 73 U/L 45-117 [facility] Work Phone: ALT [Catalytic activity/Vol] 41 U/L 16-61 [facility] Work Phone: CO2 [Moles/Vol] 25.0 mmol/L 21.0-32.0 [facility] Work Phone: Globulin (S) [Mass/Vol] 3.7 g/dL 2.2-4.2 [facility] Work Phone: Urea nitrogen/Creatinine [Mass ratio] 13.7 mg/mg 10-20 [facility] Work Phone: No Panel Informationon 12-25 Estimated GFR (MDRD) Amer 74 mL/min >60 [facility] Work Phone: Comment on above: GFR Calc Estimated GFR (MDRD) Non-Af Amer 61 mL/min >60 [facility] Work Phone: Comment on above: Non- GFR Calc Serum or plasma albumin narendra urement (mass/volume)on 12-25-2021 Albumin [Mass/Vol] 3.8 g/dL 3.2-5.0 [facility] Work Phone: Serum or plasma albumin/glob ulin mass ratioon 12-25-2021 Albumin/Globulin [Mass ratio] 1.0 {ratio} 0.9-2.4 [facility] Work Phone: Serum or plasma calcium narendra urement (mass/volume)on 12-25-2021 Calcium [Mass/Vol] 9.3 mg/dL 8.5-10.1 [facility] Work Phone: Serum or plasma creatinine m easurement (mass/volume)on 12-25-2021 Creatinine [Mass/Vol] 1.24 mg/dL 0.70-1.30 [facility] Work Phone: Comment on above: The validity of the calculated GFR & GFRAA in patients over 70 years has not been determined. Clinical correlation is essential. Serum or plasma urea nitroge n measurement (mass/volume)on 12-25-2021 Urea nitrogen [Mass/Vol] 17 mg/dL 7-18 [facility] Work Phone: Thin prep Papanicolaou smear with manual screeningon 12-25-2021 Thin prep Papanicolaou smear with manual screening 32 U/L 15-37 [facility] Work Phone: Thin prep Papanicolaou smear with manual screening 5 5-15 [facility] Work Phone: US ABDOMEN/ABDOMEN DOPPLERon 08-13-2017 US [...] of a transplanted liver. Interpreted By: Kallie Tavarezreliminary Report By: Kallie Tavarez MDElectronically Signed By: Kallie Tavarez MD Dictated Date: 08/13/2017 10:16:25 AM Prelim Date: 08/13/2017 10:16:25 AM Sign Date: 08/13/2017 11:42:02 AM Normal [facility] ([place]) Vital Signs Date Time Vital Sign Value Performing Clinician Darby gilliam 12-13-2024 09:38-0400 Body height 172.[address] Remy Yancey MD Work Phone: [facility] 12-13-2024 09:38-0400 Body mass index (BMI) [Ratio] 33.5 kg/m2 Dr. Remy Yancey MD Work Phone: [facility] 12-13-2024 09:38-0400 Body weight 100.[address] Remy Yancey MD Work Phone: [facility] 12-13-2024 09:38-0400 Diastolic blood pressure 73 mm[Hg] Dr. Remy Yancey MD Work Phone: [facility] 12-13-2024 09:38-0400 Heart rate 70 /min Dr. Remy Yancey MD Work Phone: [facility] 12-13-2024 09:38-0400 Respiratory rate 18 /min Dr. Remy Yancey MD Work Phone: [facility] 12-13-2024 09:38-0400 Systolic blood pressure 124 mm[Hg] Dr. Remy Yancey MD Work Phone: [facility] Encounters Encounter Date Encounter Type Care Provider Facility Start: 01-04-2025 ambulatory Deirdre Burt Facil ity:[facility] Start: 01-02-2025 ambulatory [facility] Facility:[facility] [place] Start: 01-02-2025 ambulatory [facility] Facility:[facility] Start: 12-13-2024 End: 12-13-[address] Annie Chan MD -[facility] Work Phone: Start: 12-13-2024 End: 12-13-[address] Remy Yancey MD Work Phone: -[facility] Start: 12-12-[address] Remy Yancey MD -Laboratory [facility] Start: 12-12-2024 End: 12-12-2024 ambulatory Remy Yancey Facility:[facility] Start: 11-17-2024 End: 11-17-[address] Remy Yancey MD Work Phone: -Laboratory Start: 11-17-2024 End: 11-17-[address] Torin Mercado MD -Laboratory Work Phone: Start: 11-17-2024 End: 11-17-2024 ambulatory Torin Mercado Facility:[facility] Start: 11-14-2024 Non-patient / Non-visit Dr. Annie Chan MD -[facility] Start: 11-14-2024 End: 11-14-[address] Remy Yancey MD Work Phone: -Cardiovascular Services Start: 11-14-2024 End: 11-14-[address] Torin Mercado MD -Cardiovascular Services Work Phone: Start: 11-14-2024 End: 11-14-2024 ambulatory Remy Yancey Facility:[facility] Start: 10-28-2024 End: 10-28-[address] Remy Yancey MD Work Phone: -Laboratory [facility] Start: 10-28-2024 End: 10-28-[address] Remy Yancey MD -Laboratory [facility] Start: 10-28-2024 End: 10-28-2024 ambulatory Remy Yancey Facility:[facility] Start: 08-09-2024 End: 08-09-[address] Remy Yancey MD Work Phone: [facility] Work Phone: Start: 08-09-2024 End: 08-09-[address] Remy Yancey MD -Laboratory [facility] Work Phone: Start: 08-09-2024 End: 08-09-2024 ambulatory Remy Yancey Facility:[facility] Start: 07-14-2024 End: 07-14-[address] Remy Yancey MD Work Phone: [facility] Work Phone: Start: 07-14-2024 End: 07-14-[address] Remy Yancey MD -Laboratory [facility] Start: 07-14-2024 End: 07-14-2024 ambulatory Remy Yancey Facility:[facility] Start: 06-19-2023 End: 06-19-2023 ambulatory [facility] Work Phone: Start: 06-19-2023 End: 06-19-2023 Patient encounter procedure [facility] Start: 01-08-2023 End: 01-08-2023 ambulatory [facility] Work Phone: Start: 01-08-2023 End: 01-08-2023 Patient encounter procedure [facility]patient [facility] Work Phone: Start: 12-18-2022 End: 12-18-2022 [facility] [facility] Start: 12-25-2021 End: 12-25-2021 ambulatory [facility] Work Phone: Start: 12-25-2021 End: 12-25-2021 Patient encounter procedure [facility] Start: 08-13-2017 End: 08-14-2017 Ambulatory REMY YANCEY Facility:[facility] Procedures Date Procedure Procedure Detail Performing Clinician Start: 11-14-2024 Radiologic exam chest [address] Remy gentile MD Work Phone: Start: 10-28-2024 Prostate specific antigen measurement Dr. [...] = 0.5 ng/mLPerformed by LC-MS/MS technology.Performed at: [address] [id number] Director: Clark Burch MD, Phone: [phone] Start: 01-08-2023 Dual energy X-ray absorptiometry Start: 12-18-2022 X-ray of lumbosacral spine H/O: liver recipient History of liver transplant Dr. Remy Yancey MD Work Phone: H/O: liver recipient History of liver transplant Dr. Annie Chan MD Plan of Treatment Date Care Activity Detail Author Start: 12-13-2024 End: 12-13-2024 Evaluation of diagnostic study results [facility] Heart Views W str ess and W radionuclide IV [facility] Payers Date Payer Category Payer Medicare [id number] 2024 Self-pay [id number] 2017 Unknown [id number] Medicare [id number] Medicare [id number] Medicare [id number] Unknown [id number] Unknown [id number] 2.16.8 [id number] Unknown [id number] 2.16.8 [id number] Unknown [id number] 2.16.8 [id number] Unknown [id number] 2.16.8 [id number] Unknown [id number] 2.16.8 [id number] Unknown [id number] 2.16.8 [id number] Unknown [id number] 2.16.8 [id number] Unknown [id number] 2.16.8 [id number] Unknown [id number] 2.16.8 [id number] Unknown [id number] 2.16.8 [id number] Unknown [id number] 2.16.8 [id number] Social History Date Type Detail Facility Start: 06-29-2018 End: 06-29-2018 Tobacco smoking status GAIS Unknown if ever smoked [facility] Start: 06-29-2018 Non-smoker [facility] Start: 1950 Sex Assigned At Male [facility] Start: 06-29-2018 Tobacco smoking stat us GAIS Ex-smoker (finding) [facility] Sex Male [facility] Progress note 12-13-2024 Note Date & Type Note Facility 12-13-2024 Progress note [facility] Radiology Diagnostic study note 11-14-2024 Note Date & Type Note Facility 11-14-2024 Radiology Diagnostic study note [facility] Imaging Services [address], [place] [address] Chest PA and Lateral MR#: [id number] Acct: [id number] Name: ALICE COHN Rep #: [id number] : 1950 M 73 From: Vamshi Gonzalez MD PCP: Dr. Remy Yancey MD Status: PRE C LI Study:Chest PA and Lateral Date of Exam: 11/14/24 Exam# [id number] Ordering Dr: Torin Mercado MD PROCEDURE: CHEST [...] and/or atelectasis. Radiographic follow-up recommended. Reading Location: [place] [address] CC: Dr. Remy Yancey MD; Dr. Torin Mercado MD ~ Baggage Handler: Signed [facility] Evaluation note Note Date & Type Note Facility Evaluation note No assessment information availa ble [facility] Work Phone: Evaluation note Note Date & Type Note Facility Evaluation note Diagnosis Onset Date Resolution Diabetes chronic December 13, 2024 9:28am Dyslipidemia chronic November 9:28am History of liver transplant chronic December 13 9:28am Hypertension chronic November 9:28am Mitral valve regurgitation chronic December 13 9:28am Atrial fibrillation inactive Octob er 2024 9:28am [facility] Work Phone: Progress note Note Date & Type Note Facility Progress note Note Date/Time December 13, 2024 10:09am [facility] [address] [place] [address] OFFICE VISIT Date of Service: 12/13/24 MR#: [id number] Acct: [id number] Name: ALICE COHN Rep #: [id number] : 1950 Provider: Dr. Manohar Chan MD Age/Sex: 73/M Location: [facility] Status: Signed HPI HPI History of Present Illness Details: This pleasant gentleman has history of liver transplant in 2002, hypertension, diabetes mellitus and dyslipidemia. He was recently noted to be in atrial fibrillation by his primary care physician. Subsequently he has been started onapixaban and referred to us for further evaluation and management. Patient denies any palpitations. He denies any chest pains either at rest or with exertion. He does complain of shortness of breath with exertion. No orthopnea. No PND. Occasional ankle edema. He has sleep apnea and wears BiPAPat night. No history of CVA or TIA. No history of abnormal bleeding. Denies any frequentfalls. 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 Accompanied by: Is patient in pain?: No Allergies No Known Allergies Allergy (Verified 12/13/24 09:44) Medications ?Medication ?Instructions ?Recorded ?Confirmed ?Type multivitamin 1 cap PO DAILY 06/25/1803/26 History tacrolimus 1 mg capsule, 1 mg PO Q12H 06/25/18 History immediate-release (Prograf) amlodipine 5 mg tablet 5 mg PO QDAY 11/30/24 History calcium 600 mg (as 1 tab PO QDAY 11/30/2411/30 History carbonate)-vitamin D3 10 mcg (400 unit) tablet (Calcium 600 + D(3)) insulin lispro 100 unit/mL See Rx Instructions subcut ACHS 11/30/24 12/13/24 History subcutaneous cartridge (Humalog U-100 Insulin) magnesium oxide 500 mg PO QDAY 11/30/2403/26 History metformin 500 mg tablet 500 mg PO QDAY 11/30/2411/30 History rosuvastatin 20 mg tablet 20 mg PO QDAY 11/30/2412/13 History apixaban 5 mg tablet (Eliquis) 5 mg PO BID 12/13/24 History furosemide 20 mg tablet 20 mg PO QDAY 12/13/2412/13 History insulin glargine 100 unit/mL (3 35 unit subcut 5 12/13/24 History mL) subcutaneous pen (Lantus Solostar U-100 Insulin) metoprolol tartrate 50 mg tablet 50 mg PO BID 12/13/24 12/13/24 History Ejection fraction %: 65 Have you fallen in the past year?: No COUNTS INCLUDE 234 BEDS AT [facility] Medical History (Updated 12/13/24 @ 10:[address] Annie Chan MD) Acid reflux Hypertension Diabetes Blood in stool Surgical History (Updated 12/13/24 @ 10:[address] Annie Chan MD) History of colonoscopy (06/30/18) History of appendectomy History of liver transplant Family History Uncle Diabetes Social History Smoking Status: Former smoker alcohol intake: never substance use type: does not use ROS Const Const: Positive for fatigue; Negative for weakness Eyes Eyes: Negative for change in vision ENT ENT: Negative for dizziness or balance problems Cardio Chest Pain: No Palpitations: No Edema: None Resp Respiratory: Positive for SOB with activity and SOB at rest; Negative for SOB orthopnea\SOB lying down Additional Details: wears bipap at hs GI GI: Negative nausea or heartburn Musc Musc: Negative for balance problems Neuro Neuro: Negative for dizziness, lightheadedness, near syncope, syncope or weakness Endo Endo: Positive for fatigue Cardiology Exam Const Appearance: comfortable and no acute distress Nutritional Appearance: well nourished Neck Neck: no JVD Carotids: Negative bruit Chest Auscultation: Bilateral: Clear to Auscultation Cardio Rhythm: irregularly irregular Heart sounds: S1 normal and S2 normal Neuro General: patient alert, patient awake and patient oriented x3 Extremities Lower Extremity Edema: None: Bilateral Supplemental Info Supplemental Information Labs: LDL Cholesterol, (0-130) 20 mg/dL HDL Cholesterol, (40-) 40 mg/dL Cholesterol, (<=200) 120 mg/dL Triglycerides, (-199) 213 mg/dL H Diagnostics: Echocardiogram Chest X-Ray Past Visits: Cardiology Visit Today Assessment and Plan Assessment and Plan (1) Atrial fibrillation: Status: Chronic Plan: CHADS2?VASc score is 3. Recommend continue apixaban. Risks benefits discussed with patient and his . They agree with the plan. Continue metoprolol for rate control. Check Lexiscan stress Myoview. (2) Hypertension: Status: Chronic Plan: Amlodipine, furosemide and metoprolol. No ACEI/ARB in view of baseline hyperkalemia. (3) Mitral valve regurgitation: Status: Chronic Plan: Moderate mitral valve regurgitation noted on echocardiogram. Periodic echo and clinical surveillance. Continue furosemide. (4) Diabetes: Status: Chronic Plan: As per PCP. (5) Dyslipidemia: Status: Chronic Plan: On rosuvastatin. (6) History of liver transplant: Status: Chronic Plan: Liver transplant in 2002. On tacrolimus. Orders: Orders 12 Lead EKG performed by [facility] Today E11.9 - Type 2 diabetes mellitus without complications, I10 - Essential (primary) hypertension, I48.91 - Unspecified atrial fibrillation Plan Details Follow Up: 6 Months Coding Level of Care Code Off vis,new,level 4 Diagnoses Atrial fibrillation I48.91 Hypertension I10 Mitral valve regurgitation I34.0 Diabetes E11.9 Dyslipidemia E78.5 History of liver transplant Z94.4 Coding Level of Care Code Off vis,new,level 4 Diagnoses Atrial fibrillation I48.91 Hypertension I10 Mitral valve regurgitation I34.0 Diabetes E11.9 Dyslipidemia E78.5 History of liver transplant Z94.4 Clinical Quality Measures Falls Risk Screening/Assistive Devices Have you fallen in the past year?: No Cardiac Ejection fraction %: 65 12/13/24 1010 <Electronically signed by Annie Chan MD> Date _ Annie Chan MD Cosigner Signature: Date (if applicable) CC: Dr. Remy Yancey MD ~ [facility] Work Phone: Reason for referral (narrative) Note Date & Type Note Facility Reason for referral (narrative) No reason for referral information available [facility] Work Phone: Summary Purpose Family History No Family History Records Found Relationship Condition Age at Onset Recorded Date/T jose carlos uncle Diabetes mellitus Unknown Advance Directives No Advanced Directives Records Found Advance Directive Response Recorded Date/ Time Living Will Yes June 29, 2018 8:11am Power of Ski Binding Fitter And Repairer Yes June 29 8:11am Advance Directive Response Recorded Date/ Time Living Will Yes June 29, 2018 7:11am Power of Ski Binding Fitter And Repairer Yes June 29 7:11am Chief Complaint and Reason for Visit Chief Complaint ADD XRAY SPLS- BACK PAIN SCREENING Chief Complaint Admit Date DYSPNEA November 14, 2024 2:41pm LABS November 17, 2024 10:46am Chief Complaint Admit Date DYSPNEA November 14, 2024 2:41pm LABS November 17, 2024 10:46am NEW ONSET AFIB (NAYE) December 13, 025 9:28am Reason for Visit Admit Date Diabetes December 13, 2024 9 :28am Dyslipidemia December 13, 2024 9 :28am History of liver transplant November 9:28am Hypertension December 13, 2024 9 :28am Mitral valve regurgitation December 13, 2024 9:28am Atrial fibrillation December 13, 2024 9 :28am Additional Source Comments (unrecognized sect ion and content) No Status Records FoundNo Status Records Found INFORMATION SOURCE (unrecogn ized section and content) DATE CREATED AUTHOR 08/17/[address] [facility] ([place]) DATE CREATED AUTHOR AUTHOR'S ORGANIZ ATION 01/03/2025 [facility] Goals (unrecognized section and content) Goals may [...] October 28, 2024 End: October 28, 2024 Team Status: Active Member Role/Relationship Status Dates Dr. Remy Yancey MD Primary care physician Active Team Status: Inactive Member Role/Relationship Status Dates Dr. Remy Yancey MD Primary care physician Active Start: August 09, 2024 End: August 09, 2024 Dr. Remy Yancey MD Attending physician Active Start: August 09, 2024 End: August 09, 2024 Dr. Remy Yancey MD Referring Provider Active Start: August 09, 2024 End: August 09, 2024 Team Status: Inactive Member Role/Relationship Status Dates Dr. Remy Yancey MD Primary care physician Active Start: October 28, 2024 End: October 28, 2024 Dr. Remy Yancey MD Attending physician Active Start: October 28, 2024 End: October 28, 2024 Dr. Remy Yancey MD Referring Provider Active Start: October 28, 2024 End: October 28, 2024 Team Status: Inactive Member Role/Relationship Status Dates Dr. Remy Yancey MD Primary care physician Active Start: November 14, 2024 End: November 14, 2024 Dr. Torin Mercado MD Attending physician Active Start: November 14, 2024 End: November 14, 2024 Dr. Torin Mercado MD Referring Provider Active Start: November 14, 2024 End: November 14, 2024 Team Status: Active Member Role/Relationship Status Dates Dr. Remy Yancey MD Primary care physician Active Start: November 14, 2024 Dr. Annie Chan MD Attending physician Active Start: November 14, 2024 Team Status: Inactive Member Role/Relationship Status Dates Dr. Remy Yancey MD Primary care physician Active Start: November 17, 2024 End: November 17, 2024 Dr. Torin Mercado MD Attending physician Active Start: November 17, 2024 End: November 17, 2024 Dr. Torin Mercado MD Referring Provider Active Start: November 17, 2024 End: November 17, 2024 Team Status: Inactive Member Role/Relationship Status Dates Dr. Remy Yancey MD Primary care physician Active Start: October 28, 2024 End: October 28, 2024 Dr. Remy Yancey MD Attending physician Active Start: October 28, 2024 End: October 28, 2024 Dr. Remy Yancey MD Referring Provider Active Start: October 28, 2024 End: October 28, 2024 Team Status: Inactive Member Role/Relationship Status Dates Dr. Remy Yancey MD Primary care physician Active Start: November 14, 2024 End: November 14, 2024 Dr. Torin Mercado MD Attending physician Active Start: November 14, 2024 End: November 14, 2024 Dr. Torin Mercado MD Referring Provider Active Start: November 14, 2024 End: November 14, 2024 Team Status: Active Member Role/Relationship Status Dates Dr. Remy Yancey MD Primary care physician Active Start: November 14, 2024 Dr. Annie Chan MD Attending physician Active Start: November 14, 2024 Team Status: Inactive Member Role/Relationship Status Dates Dr. Remy Yancey MD Primary care physician Active Start: November 17, 2024 End: November 17, 2024 Dr. Torin Mercado MD Attending physician Active Start: November 17, 2024 End: November 17, 2024 Dr. Torin Mercado MD Referring Provider Active Start: November 17, 2024 End: November 17, 2024 Team Status: Active Member Role/Relationship Status Dates Dr. Remy Yancey MD Primary care physician Active Start: December 12, 2024 Dr. Remy Yancey MD Attending physician Active Start: December 12, 2024 Team Status: Inactive Member Role/Relationship Status Dates Dr. Remy Yancey MD Primary care physician Active Start: December 13, 2024 End: December 13, 2024 Dr. Remy Yancey MD Referring Provider Active Start: December 13, 2024 End: December 13, 2024 Dr. Annie Chan MD Attending physician Active Start: December 13, 2024 End: December 13, 2024 FOR RECORDS PERTAINING TO PATIENTS WHO [...] BE BASED ON THE PRIMARY CLINICAL RECORDS. [facility] [employer] provides no warranty or guarantee of the accuracy or completeness of information in this document.
== END | disposition home or self-care (01) ==
LOC: US 16:47
PROVIDERS: PCP Family Medicine; Referring Provider Internal Medicine Nephrology; Visit Provider Internal Medicine Nephrology
DX: N18.32 Chronic kidney disease, stage 3b (principal)
CPT/HCPCS: 76770

== ENCOUNTER → 2025-01-19 | Outpatient (CLI) | payer MEDICARE, SELFPAY ==
[2025-01-19 12:42] LABS: Anion Gap 11 (5-15); BUN 23 mg/dL (4-19); BUN/Creat Ratio 14.1 RATIO (10-20); Calcium,Total 8.9 mg/dL (7.6-11.0); Carbon Dioxide 26.8 mmol/L (21.0-32.0); Chloride 101 mmol/L (98-108); Glucose 279 mg/dL (70-99); Potassium 4.4 mmol/L (3.3-5.1)
== END | disposition home or self-care (01) ==
LOC: MFPLAB 09:31
PROVIDERS: PCP Family Medicine; Visit Provider Family Medicine
DX: N28.9 Disorder of kidney and ureter, unspecified (principal)
CPT/HCPCS: 36415; 80048

== ENCOUNTER → 2025-02-17 | Outpatient (CLI) | payer MEDICARE, SELFPAY ==
[2025-02-17 13:08] LABS: Pro- Brain NATRIURETIC PEPTIDE 2331 pg/mL (<=900)
== END | disposition home or self-care (01) ==
LOC: MFPLAB 10:44
PROVIDERS: PCP Family Medicine; Visit Provider Internal Medicine Pulmonary Disease
DX: I50.21 Acute systolic (congestive) heart failure (principal)
CPT/HCPCS: 36415; 83880